=== PATIENT | female | born 1995 | race Caucasian/White ===

== ENCOUNTER 2019-12-09 20:08 | Observation (INO) | payer OTHER, MEDICAID, SELFPAY ==
[2019-12-09 21:00] VITALS: BMI 38.5
[2019-12-09 22:35] VITALS: TEMP 36.4
--- NOTE | 2019-12-09 23:21 | OBADM ---
This patient, Sabina Chandler, admitted to the OB room Labor/Delivery/Recovery 105 for observation. Patient/family oriented to hospital policies and general routines including ID bracelet, bed and alarms, visiting hours, pain management, procedures, bathroom and other care routines, personal items, smoking policy, room service/diet, and visiting hours. Patient/Family are encouraged to report perceived risks to care and to ask questions if they do not understand what they are told or what they should do.
--- NOTE | 2019-12-22 15:44 | PM.OBTRLD ---
OB - Triage/Final Diagnosis Final Diagnosis (1) False labor: Code(s): O47.9 - False labor, unspecified Status: Acute
== END 2019-12-09 22:52 | disposition home or self-care (01) ==
PROVIDERS: Admitting Provider Obstetrics & Gynecology; PCP Internal Medicine; Visit Provider Obstetrics & Gynecology
DX: O47.9 False labor, unspecified (principal); Z3A.00 Weeks of gestation of pregnancy not specified
CPT/HCPCS: G0378; G0379

== ENCOUNTER 2019-12-14 16:47 | Outpatient (RCR) | payer OTHER, MEDICAID, SELFPAY ==
[2019-12-14 17:30] VITALS: BP 110/67; PULSE 101
== END 2020-02-09 11:31 | disposition home or self-care (01) ==
LOC: ANHOBOP 16:47
PROVIDERS: PCP Internal Medicine; Visit Provider Obstetrics & Gynecology
DX: O36.8130 Decreased fetal movements, third trimester, not applicable or unspecified (principal); Z3A.37 37 weeks gestation of pregnancy
CPT/HCPCS: 59025

== ENCOUNTER 2019-12-16 15:49 | Inpatient (IN) | payer OTHER, MEDICAID, SELFPAY ==
[2019-12-16] VITALS (49 sets, daily range): BP systolic 70–136; BP diastolic 40–85; PULSE 59–104; TEMP 36.6–36.9; O2SAT 81–100; BMI 39.2
--- NOTE | 2019-12-16 16:19 | LDADM ---
This patient, Sabina Chandler, was admitted to Labor/Delivery/Recovery 105 on 12/16/19 at 15:49. Plans for labor, pain management and were discussed with patient. Patient/family oriented to hospital policies and general routines including ID bracelet, bed and alarms, visiting hours, pain management, procedures, bathroom and other care routines, personal items, smoking policy, room service/diet and guest tray routines, security routines, and visiting hours. Patient/Family are encouraged to report perceived risks to care and to ask questions if they do not understand what they are told or what they should do. See OBIX for further documentation.
[2019-12-16 16:41] LABS: Basophils Percent Auto 0.3 % (0.2-1.2); Eosinophils Absolute Auto 0.1 K/mm3 (0-0.3); Eosinophils Percent Auto 0.6 % (0-4.4); Hematocrit 34.9 % (37.0-47.0); Hemoglobin 11.5 g/dL (12.0-15.0); Immature Granulocyte Absolute 0.02 K/mm3 (0.00-0.031); Immature Granulocyte Percent A 0.2 % (0-0.5); Immature Platelet Fraction Pct 9.9 % (0.9-11.2); Lymphocytes Absolute Auto 1.75 K/mm3 (0.9-3.2); Lymphocytes Percent Auto 20.1 % (18.3-44.2); Mean Corpuscular Hemoglobin 30.7 pg (26-34); Mean Corpuscular Volume 93.1 fl (80-100); Mean Platelet Volume 13.2 fl (7.4-10.4); Monocytes Absolute Auto 0.5 K/mm3 (0.1-0.6); Monocytes Percent Auto 5.4 % (2.6-8.5); Neutrophils Absolute Auto 6.4 K/mm3 (1.3-6.7); Neutrophils Percent Auto 73.4 % (45.5-73.1); Platelet Count Result 154 k/mm3 (150-375); Red Blood Count 3.75 M/mm3 (4.2-5.4); Red Cell Distribution Width 13.2 % (11.5-14.5); White Blood Count 8.7 K/mm3 (4.5-10.0)
[2019-12-16] MEDS: LACTATED RINGERS 1,000 ML 125 ML IV CONT (18:03)
[2019-12-16] MEDS: ONDANSETRON INJ 4 MG/2 ML VIAL IV PUSH (18:03)
[2019-12-16] MEDS: FAMOTIDINE 20 MG/2 ML VIAL (20:10)
--- NOTE | 2019-12-16 20:51 | WPDANESEPP ---
Anes - Eval Pre Procedure Procedure: labor epidural Date/Time: 12/16/19 20:51 Surgeon: Florentino Preop Diagnosis: Labor pain Pre Op Diagnosis: Leaking fluid Patient Data Age: 24 Gender: F Height: 1.65 m Weight: 106.82 kg Last Vital Signs Temp 36.9 C 12/16/19 18:30 Pulse 80 12/16/19 20:50 BP 99/55 L 12/16/19 20:50 Pulse Ox 99 12/16/19 20:47 Allergies Allergy/AdvReac Type Severity Reaction Status Date / Time morphine Allergy Unknown Rash,ITCHIN Verified 11/30/19 13:11 G Contrast Media Allergy Unknown Other Uncoded 07/31/19 02:27 PURPLE GRAPES Allergy Unknown SWELLING, Uncoded 11/28/12 15:39 RASH Home Medications Medication Instructions Recorded Confirmed Type PNV cmb#95-ferrous fumarate-FA 1 tablet PO DAILY 11/30/19 12/16/19 History [] acyclovir 400 mg PO TID 11/30/19 12/16/19 History ondansetron HCl [Zofran] 4 mg PO Q8H PRN 11/30/19 12/16/19 History Laboratory Tests 12/16/19 12/16/19 12/16/19 16:33 16:33 17:16 WBC 8.7 K/mm3 K/mm3 (4.5-10.0) RBC 3.75 M/mm3 L M/mm3 (4.2-5.4) Hgb 11.5 g/dL L g/dL (12.0-15.0) Hct 34.9 % L % (37.0-47.0) MCV 93.1 fl fl (80-100) MCH 30.7 pg pg (26-34) MCHC 33.0 g/dl g/dl (32-36) RDW 13.2 % % (11.5-14.5) Plt Count 154 k/mm3 k/mm3 (150-375) MPV 13.2 fl H fl (7.4-10.4) Immature Gran % (Auto) 0.2 % % (0-0.5) Neut % (Auto) 73.4 % H % (45.5-73.1) Lymph % (Auto) 20.1 % % (18.3-44.2) [place] % (Auto) 5.4 % % (2.6-8.5) Eos % (Auto) 0.6 % % (0-4.4) Baso % (Auto) 0.3 % % (0.2-1.2) Lymph # (Auto) 1.75 K/mm3 K/mm3 (0.9-3.2) [place] # (Auto) 0.5 K/mm3 K/mm3 (0.1-0.6) Eos # (Auto) 0.1 K/mm3 K/mm3 (0-0.3) Baso # (Auto) 0.0 K/mm3 K/mm3 (0.0-0.1) Abs Immat Gran (auto) 0.02 K/mm3 K/mm3 (0.00-0.031) Absolute Neuts (auto) 6.4 K/mm3 K/mm3 (1.3-6.7) Absolute Nucleated RBC 0.0 K/mm3 K/mm3 (0.0-0.012) Nucleated RBC % 0.0 % % (0.0-0.2) % Immature Plt Fraction 9.9 % % (0.9-11.2) RPR Pending Blood Type O Positive Antibody Screen Negative Patient hx anesthesia problems: none Family hx anesthesia problems: none PMFSH Past Medical History Medical History (Updated 12/16/19 @ 20:52 by Hudson Da Silva DO) Anxiety Asthma Family History Family History (Updated 11/30/19 @ 13:29 by Isaiah Martínez RN) Grandparent Diabetes mellitus Cerebrovascular accident Other Diabetes mellitus Mother Thyroid disease Social History Social History Smoking packs per day: 1.5 Smoking cigarettes per day: 30.0 Years smoked: 8 Smoking pack-years: 12.00 Smoking status: Current every day smoker Tobacco type: cigarettes Second hand tobacco smoke exposure: Yes Alcohol intake: never Substance use: never Spiritual care concerns: No Exam Day of Procedure 12/16/19 20:51 Patient weight: obese
[2019-12-17] VITALS (9 sets, daily range): BP systolic 99–123; BP diastolic 57–91; PULSE 74–88; RESP 16–18; TEMP 36.6–36.9; O2SAT 97–100
[2019-12-17] MEDS: BENZOCAINE 20% AER SPR (*SP) 56 GM CAN 1 SPRAY TOPICAL (01:00)
[2019-12-17] MEDS: WITCH HAZEL 40 PADS 1 PAD TOPICAL (01:00)
[2019-12-17] MEDS: IBUPROFEN 600 MG TABLET PO ×3 (01:00→16:25)
--- NOTE | 2019-12-17 01:36 | OBPPTRN ---
Patient transferred to post room #291 via wheelchair. Support person present. Oriented to unit, room, information board, rooming in, admission packet and security measures. Patient verbalizes understanding. with patient.
--- NOTE | 2019-12-17 02:46 | OP_ITS ---
DATE OF PROCEDURE: 12/16/2019 PROCEDURE: Normal spontaneous vaginal delivery. PREDELIVERY DIAGNOSES: 1. 38-week term gestation. 2. Premature rupture of membranes. POSTDELIVERY DIAGNOSES: 1. 38-week term gestation. 2. Premature rupture of membranes. 3. Delivered by normal spontaneous vaginal delivery. ANESTHESIA: Epidural. ESTIMATED BLOOD LOSS: 200 mL. FINDINGS: Single live male , born on December 16, 2019, at 2300, Apgars of 9 and 9, weight 7 pounds 6 ounces. LACERATION: Periurethral laceration, hemostatic, and no repair was needed. BRIEF HISTORY: A 24-year-old, G2, P1, at 38 weeks term gestation, initially presented to Labor and Delivery with premature rupture of membranes. Labor was induced with IV Pitocin. The patient progressed without complication to complete dilation. DESCRIPTION OF THE PROCEDURE: Once the patient was noted to be complete and ready to push, the labor bed was broken down. Her legs were placed in stirrups for support. With maternal efforts and contractions, the presented in [place] position. Head was delivered and was checked for nuchal cord. No nuchal cord was noted with gentle downward traction. Anterior shoulder was delivered, followed by the posterior shoulder and the rest of the body. The was vigorous and crying. Delayed cord clamping approximately 1 minute was performed. Cord gases were collected. IV Pitocin was administered with gentle traction on the umbilical cord. The placenta was delivered spontaneously. Fundal massage was applied. Fundus was noted to be firm. Bleeding slowed down. Exam was performed to identify any lacerations. A periurethral laceration was noted; however, this was hemostatic, and thus no repair was needed. At this point, this concluded the procedure. The patient tolerated the procedure well, and is resting in the labor room. D I MT: Tiesha
[2019-12-17 05:44] LABS: Hematocrit 32.2 % (37.0-47.0); Hemoglobin 10.7 g/dL (12.0-15.0)
--- NOTE | 2019-12-17 06:17 | HP_ITS ---
DATE OF SERVICE: CHIEF COMPLAINT: Leaking of fluid. HISTORY OF PRESENT ILLNESS: 24-year-old, G2, P1-0-0-1 at 38 weeks and 0 days' gestation, initially presented to Labor and Delivery with complaints of leaking of fluid around 3 p.m. Rupture of membranes was confirmed on testing in Labor and Delivery triage. The patient reports some pelvic pressure and back pain. Otherwise, denies any headaches, blurry vision, spots in her vision, chest pain, shortness of breath, nausea, vomiting, diarrhea, constipation, vaginal irritation, and dysuria. PAST MEDICAL HISTORY: Cervical cancer, herpes, anxiety. SURGICAL HISTORY: Ankle surgery and eye surgery. SOCIAL HISTORY: Tobacco use, occasional. Denies alcohol or drugs. FAMILY HISTORY: Mother with hypothyroidism, hypertension, and depression. Maternal grandmother with diabetes mellitus. OBSTETRICAL HISTORY: G2, P1 with one previous normal spontaneous vaginal delivery. MEDICATIONS: Acyclovir, vitamins, and Zofran. ALLERGIES: TO MORPHINE AND IV CONTRAST. REVIEW OF SYSTEMS: 10-point review of systems is completed. Pertinent positives and negatives as per the HPI. PHYSICAL EXAMINATION: GENERAL: Not in acute distress. Alert and oriented x3. PSYCHIATRIC: Appropriate mood and affect. RESPIRATORY: Nonlabored. CARDIOVASCULAR: Regular rate and rhythm. ABDOMEN: Gravid, soft, nondistended. ASSESSMENT: 1. 38-week term gestation. 2. Premature rupture of membranes. PLAN: Admit to Labor and Delivery for induction of labor for premature rupture of membranes with Pitocin, routine intrapartum care, and pain management as requested by the patient. D I MT: Tiesha
[2019-12-17 06:54] LABS: Rapid Plasma Reagin Non-Reactive (NonReactive)
[2019-12-17] MEDS: DOCUSATE SODIUM 100 MG CAPSULE PO ×2 (09:20→16:25)
--- NOTE | 2019-12-17 10:24 | WPDANESPN ---
Anes - Prog Note Post-Op Date/Time: 12/17/19 10:24 Vital Signs: Last Vital Signs Temp 98.3 F 12/17/19 07:45 Pulse 74 12/17/19 07:45 Resp 16 12/17/19 07:45 BP 106/78 12/17/19 07:45 Pulse Ox 100 12/17/19 07:45 I/O: Intake & Output 12/16/19 12/17/19 12/17/19 23:59 07:59 15:59 Intake Total 500 Output Total 200 72 Balance 300 -72 Laboratory Tests 12/17/19 05:26 12/16/19 12/16/19 12/16/19 16:33 16:33 17:16 WBC 8.7 RBC 3.75 L Hgb 11.5 L Hct 34.9 L MCV 93.1 MCH 30.7 MCHC 33.0 RDW 13.2 Plt Count 154 MPV 13.2 H Immature Gran % (Auto) 0.2 Neut % (Auto) 73.4 H Lymph % (Auto) 20.1 [place] % (Auto) 5.4 Eos % (Auto) 0.6 Baso % (Auto) 0.3 Lymph # (Auto) 1.75 [place] # (Auto) 0.5 Eos # (Auto) 0.1 Baso # (Auto) 0.0 Abs Immat Gran (auto) 0.02 Absolute Neuts (auto) 6.4 Absolute Nucleated RBC 0.0 Nucleated RBC % 0.0 % Immature Plt Fraction 9.9 RPR Non-reactive Blood Type O Positive Antibody Screen Negative 12/17/19 05:26 WBC RBC Hgb 10.7 L Hct 32.2 L MCV MCH MCHC RDW Plt Count MPV Immature Gran % (Auto) Neut % (Auto) Lymph % (Auto) [place] % (Auto) Eos % (Auto) Baso % (Auto) Lymph # (Auto) [place] # (Auto) Eos # (Auto) Baso # (Auto) Abs Immat Gran (auto) Absolute Neuts (auto) Absolute Nucleated RBC Nucleated RBC % % Immature Plt Fraction RPR Blood Type Antibody Screen Patient Feedback: Patient satisfied with anesthetic care.
--- NOTE | 2019-12-17 10:24 | WPDANLDPN2 ---
Anes-Prog Note L&D Date/Time: 12/17/19 10:24 Neuro status: Neuro function grossly intact. Vital Signs: Last Vital Signs Temp 98.3 F 12/17/19 07:45 Pulse 74 12/17/19 07:45 Resp 16 12/17/19 07:45 BP 106/78 12/17/19 07:45 Pulse Ox 100 12/17/19 07:45 I/O: Intake & Output 12/16/19 12/17/19 12/17/19 23:59 07:59 15:59 Intake Total 500 Output Total 200 72 Balance 300 -72 Patient feedback: Patient satisfied with anesthetic care.
--- NOTE | 2019-12-17 11:45 | PC.NURSE ---
Consulted with patient, mother reports she has some difficulties waking for feeding. Reviewed feeding cues, frequencies, duration of feedings, feeding elimination flow sheet, and signs of adequate intake. Demonstrated stimulation techniques to wake infant for feeding. Assisted with infant to breast. Reviewed positioning/alignment in cross cradle, holding breast in U hold and guided asymmetrical latch on. was sleepy and not waking for feeding. Several attempts made. Small amounts of formula to nipple to entice . was able to latch correctly. Infant nursed eagerly, with steady draws and frequent swallowing noted. Reviewed signs of a correct latch, effective nursing and suck swallow ratio. Infant was able to maintain latch without discomfort to mother. Nipple care reviewed. Advised to stimulate to keep infant awake and nursing effectively. Infant responded to stimulation with increased suckling. Instructed mother to call out for RN assistance if she is unable to latch for feeding or she has discomfort with nursing. Instructed feeding should be initiated three hours from start of last feeding or if feeding cues are noted before. Mother voiced understanding of information shared.
--- NOTE | 2019-12-17 12:16 | PM.OBPNVD ---
OB - PN: Subj Subjective Date/time seen: 12/17/19 12:16 Interval history: 24yo s/p on 12/16/2019 @ 2300. Patient comments: no complaints and pain well controlled [place] baby status: doing well and nursing well [place] feeding status: exclusively breast feeding Narrative: Doing well. Having some cramping, especially when breast feeding, motrin helps. Denies lightheadedness, dizziness, fevers, chills, nausea. Lochia improving. OB - PN: Obj Data Labs CBC & Chem 7: 12/17/19 05:26 Labs: Laboratory Results - last 24 hr 12/16/19 12/16/19 12/16/19 16:33 16:33 17:16 WBC 8.7 RBC 3.75 L Hgb 11.5 L Hct 34.9 L MCV 93.1 MCH 30.7 MCHC 33.0 RDW 13.2 Plt Count 154 MPV 13.2 H Immature Gran % (Auto) 0.2 Neut % (Auto) 73.4 H Lymph % (Auto) 20.1 [place] % (Auto) 5.4 Eos % (Auto) 0.6 Baso % (Auto) 0.3 Lymph # (Auto) 1.75 [place] # (Auto) 0.5 Eos # (Auto) 0.1 Baso # (Auto) 0.0 Abs Immat Gran (auto) 0.02 Absolute Neuts (auto) 6.4 Absolute Nucleated RBC 0.0 Nucleated RBC % 0.0 % Immature Plt Fraction 9.9 RPR Non-reactive Blood Type O Positive Antibody Screen Negative 12/17/19 05:26 WBC RBC Hgb 10.7 L Hct 32.2 L MCV MCH MCHC RDW Plt Count MPV Immature Gran % (Auto) Neut % (Auto) Lymph % (Auto) [place] % (Auto) Eos % (Auto) Baso % (Auto) Lymph # (Auto) [place] # (Auto) Eos # (Auto) Baso # (Auto) Abs Immat Gran (auto) Absolute Neuts (auto) Absolute Nucleated RBC Nucleated RBC % % Immature Plt Fraction RPR Blood Type Antibody Screen OB - PN A/P Assessment and Plan (1) (normal spontaneous vaginal delivery): Code(s): O80 - Encounter for full-term uncomplicated delivery Status: Acute Assessment and Plan: Routine care Pain management Ambulate DC home tomorrow, 1/31. Plan day: 1 Plan: routine care Time Spent With Patient Time: Total time spent is greater than 50% in coordination of care (as documented) at patient's floor/unit and/or counseling patient: Exam Const: General: comfortable and no acute distress Orientation/consciousness: patient oriented x3 Resp: Effort & Inspection: normal respiratory effort Auscultation: clear to auscultation bilaterally Cardio: Rate: regular rate Psych: Appearance: grossly normal and well kempt Mental Status: mental status grossly normal Affect: normal affect Attitude: cooperative
--- NOTE | 2019-12-17 13:14 | PM.DS ---
DS: Diagnosis Admitting Diagnosis Admitting Diagnosis: Encounter for full-term uncomplicated delivery Discharge Diagnosis (1) (normal spontaneous vaginal delivery): Code(s): O80 - Encounter for full-term uncomplicated delivery Status: Acute DS: Summary Hospital Course Reason for hospitalization: 24yo at 38weeks initially admitted for PROM. Hospital Course: Labor induced with pitocin. on 12/16. Patient progressed as expected. Discharge on 12/18/2019. Time Spent with Patient Time attestation: Total time spent providing and/or coordinating discharge services: Exam Const: General: comfortable and no acute distress Limitations: no limitations Resp: Effort & Inspection: normal respiratory effort Auscultation: clear to auscultation bilaterally Cardio: Rate: regular rate Rhythm: regular rhythm GI: GI Palp: Yes Soft to palpation and No Tenderness to palpation present (GI) Psych: Appearance: grossly normal Mental Status: mental status grossly normal DS: Data Data Completed and Pending Labs on day of discharge: Labs from last 24 hours 12/17/19 12/16/19 12/16/19 05:26 17:16 16:33 WBC RBC Hgb 10.7 L Hct 32.2 L MCV MCH MCHC RDW Plt Count MPV Immature Gran % (Auto) Neut % (Auto) Lymph % (Auto) [place] % (Auto) Eos % (Auto) Baso % (Auto) Lymph # (Auto) [place] # (Auto) Eos # (Auto) Baso # (Auto) Abs Immat Gran (auto) Absolute Neuts (auto) Absolute Nucleated RBC Nucleated RBC % % Immature Plt Fraction RPR Non-reactive Blood Type O Positive Antibody Screen Negative 12/16/19 16:33 WBC 8.7 RBC 3.75 L Hgb 11.5 L Hct 34.9 L MCV 93.1 MCH 30.7 MCHC 33.0 RDW 13.2 Plt Count 154 MPV 13.2 H Immature Gran % (Auto) 0.2 Neut % (Auto) 73.4 H Lymph % (Auto) 20.1 [place] % (Auto) 5.4 Eos % (Auto) 0.6 Baso % (Auto) 0.3 Lymph # (Auto) 1.75 [place] # (Auto) 0.5 Eos # (Auto) 0.1 Baso # (Auto) 0.0 Abs Immat Gran (auto) 0.02 Absolute Neuts (auto) 6.4 Absolute Nucleated RBC 0.0 Nucleated RBC % 0.0 % Immature Plt Fraction 9.9 RPR Blood Type Antibody Screen Discharge Plan Discharge Attending physician on discharge: Shin Good Discharging Clinician: Shin Good Patient Disposition: Home, Self-Care Activity: may shower Diet: as tolerated and regular Patient Instructions: Antibiotic Form Stand Alone Forms: General Discharge Information Follow-up/Referrals: Shin Good DO [Physician] - (4 weeks) Discharge Medications: New docusate sodium 100 mg Capsule 100 mg PO BID PRN (Reason: Constipation) Qty: 60 RF: 0 ibuprofen 600 mg Tablet 600 mg PO Q6H PRN (Reason: Cramping) Qty: 90 RF: 0 Continued PNV cmb#95-ferrous fumarate-FA [] 28 mg iron- 800 mcg Tablet 1 tablet PO DAILY RF: 0 Discontinued ondansetron HCl [Zofran] 4 mg Tablet 4 mg PO Q8H PRN (Reason: Nausea) RF: 0 acyclovir 400 mg Tablet 400 mg PO TID RF: 0 Date of admission: 12/16/19 15:49 Primary Care Provider: Felix,Kostas Lozano Admitting Provider: Shin Good Attending physician on admission: Shin Good
[2019-12-17] MEDS: MULTIVIT/MIN/PREN/FOL AC/IRON TABLET 1 TAB PO (16:29)
[2019-12-18] MEDS: IBUPROFEN 600 MG TABLET PO ×2 (00:17→08:59)
[2019-12-18 08:20] VITALS: BP 98/46; PULSE 56; RESP 16; TEMP 37.4; O2SAT 98
[2019-12-18] MEDS: MULTIVIT/MIN/PREN/FOL AC/IRON TABLET 1 TAB PO (09:00)
[2019-12-18] MEDS: TETANUS,DIPHTHERIA,AC PERTUSSIS ADULT 0.5 ML (ADACEL) IM (09:00)
[2019-12-18] MEDS: DOCUSATE SODIUM 100 MG CAPSULE PO (09:00)
--- NOTE | 2019-12-18 11:35 | PC.NURSE ---
Patient instructed on viewing the discharge video Mother & Baby Care, The First Two Weeks online. Patient was given the opportunity and encouraged to ask questions. Patient verbalized understanding of information shared and has been given the mother/baby guide for home reference.
--- NOTE | 2019-12-18 11:45 | PC.NURSE ---
Mother is able to independently latch infant with appropriate positioning/alignment. She denies any nipple discomfort, is feeding as required and waking to feed if needed. has had 8 effective feedings in the past 24 hours, and is currently meeting outcomes for weight, output, jaundice and feeding frequencies. Mother states she feels confident to continue effective at home. Mother will continue to supplement after feedings as she feels infant desires Reviewed transition to breast milk, signs of adequate intake, and engorgement/relief. Instructed to call ICP if intake/output less than required. Reviewed regular medications mother is taking. Information provided per Dilma. Reviewed community resources on the [facility] website and in the Mom/Baby guide. Information on outpatient services provided. Mother has no further questions at this time.
[2019-12-19 10:59] VITALS: BP 115/85; PULSE 89; RESP 20; TEMP 37.1
== END 2019-12-18 13:00 | disposition home or self-care (01) | DRG 806 ==
LOC: ANHLDR 16:14 → ANHOB2 12-17 01:46
PROVIDERS: Admitting Provider Obstetrics & Gynecology; PCP Internal Medicine; Visit Provider Obstetrics & Gynecology
DX: O42.02 Full-term premature rupture of membranes, onset of labor within 24 hours of rupture (principal); O98.52 Other viral diseases complicating childbirth; Z37.0 Single live birth; Z3A.38 38 weeks gestation of pregnancy; B00.9 Herpesviral infection, unspecified; O36.8330 Maternal care for abnormalities of the fetal heart rate or rhythm, third trimester, not applicable or unspecified; O99.344 Other mental disorders complicating childbirth; F41.8 Other specified anxiety disorders; O99.52 Diseases of the respiratory system complicating childbirth; J45.909 Unspecified asthma, uncomplicated; O99.214 Obesity complicating childbirth; E66.9 Obesity, unspecified; O71.82 Other specified trauma to perineum and vulva
CPT/HCPCS: 36415; 85014; 85018; 85025; 85055; 86592; 86850; 86900; 86901; 90715; A9270; J2405; J2590; J2795; J3010; J7120

== ENCOUNTER 2019-12-21 21:17 | Emergency (ER) | payer OTHER, MEDICAID, SELFPAY ==
[2019-12-21 21:19] VITALS: BP 130/87; PULSE 66; RESP 18; TEMP 36.6; O2SAT 100
[2019-12-21 21:39] LABS: Basophils Percent Auto 0.3 % (0.2-1.2); Eosinophils Absolute Auto 0.2 K/mm3 (0-0.3); Eosinophils Percent Auto 2.8 % (0-4.4); Hematocrit 35.8 % (37.0-47.0); Hemoglobin 11.9 g/dL (12.0-15.0); Immature Granulocyte Absolute 0.02 K/mm3 (0.00-0.031); Immature Granulocyte Percent A 0.3 % (0-0.5); Lymphocytes Absolute Auto 2.29 K/mm3 (0.9-3.2); Lymphocytes Percent Auto 35.7 % (18.3-44.2); Mean Corpuscular HGB Conc 33.2 g/dl (32-36); Mean Corpuscular Hemoglobin 31.2 pg (26-34); Mean Platelet Volume 11.5 fl (7.4-10.4); Monocytes Absolute Auto 0.5 K/mm3 (0.1-0.6); Monocytes Percent Auto 7.6 % (2.6-8.5); Neutrophils Absolute Auto 3.4 K/mm3 (1.3-6.7); Neutrophils Percent Auto 53.3 % (45.5-73.1); Platelet Count Result 216 k/mm3 (150-375); Red Blood Count 3.81 M/mm3 (4.2-5.4); Red Cell Distribution Width 12.6 % (11.5-14.5); White Blood Count 6.4 K/mm3 (4.5-10.0)
[2019-12-21 21:50] LABS: Alanine Aminotransferase 26 U/L (4-35); Albumin Level 3.6 g/dL (3.5-5.1); Alkaline Phosphatase 113 U/L (38-126); Aspartate Amino Transferase 24 U/L (14-36); Bilirubin,Total 0.2 mg/dL (0.2-1.3); Blood Urea Nitrogen 11 mg/dL (7-17); Calcium 9.3 mg/dL (8.4-10.2); Carbon Dioxide 20 mmol/L (22-30); Chloride 108 mmol/L (98-107); Estimated CRCL calculation 144 ml/min; Estimated Glomerular Filt Rate > 60; Glucose 87 mg/dL (65-105); Lipase 25 U/L (23-300); Potassium 3.5 mmol/L (3.4-5.0); Sodium 137 mmol/L (137-145)
[2019-12-21 22:24] LABS: Add Urine Microscopic? YES; Appearance Urine Clear (Clear); Bacteria Urine Trace /hpf; Bilirubin Urine Negative (Negative); Blood Urine 3+ (Negative); Color Urine Yellow (Yellow); Glucose Urine UA Negative (Negative); Ketones Urine Negative (Negative); Leukocyte Esterase Ur 3+ LEU/UL (Negative); Mucus Urine Rare /lpf; Nitrate Urine Negative (Negative); Protein Urine Negative (Negative); RBC Urine 21-50 /hpf (0-2); Specific Grav Ur 1.009 (1.001-1.035); Squamous Epithelial Cell Urine Many /hpf (Few); Urobilinogen Urine Negative mg/dL (<2.0); WBC Urine 31-50 /hpf
[2019-12-21 23:28] VITALS: BP 146/93; PULSE 60; RESP 11; TEMP 36.7; O2SAT 100
--- NOTE | 2019-12-21 23:36 | ED.HA ---
HPI - Headache General Chief Complaint: Headache Stated Complaint: headaches/ HTN gave Saturday Time Seen by Provider: 12/21/19 23:29 Source: patient and RN notes reviewed Mode of arrival: ambulatory Limitations: no limitations History of Present Illness HPI Narrative: Pt is a 24 y/o female who presents to the ED with c/o waxing and waning headache starting 3 days ago. She notes that she had a vaginal delivery 5 days ago, stating that she received an epidural injection during the delivery. Pt notes that she has had a headache ever since returning home from the hospital 3 days ago. She states that she has been taking Tylenol for her pain, but denies having any relief. Pt reports lightheadedness and abnormal breathing accompanying her pain, but denies any calf pain or LE edema. She notes that she hasn't had much of an appetite throughout the day today. Pt states that her BP has also recently been elevated. MD elicited complaint: headache Onset (ago): day(s) (3) Context: recent spinal/epidural procedure Associated symptoms: lightheadedness and other ( abnormal breathing; decreased appetite) Treatments prior to arrival: acetaminophen Related Data Home Medications Medication Instructions Recorded Confirmed PNV cmb#95-ferrous fumarate-FA 1 tablet PO DAILY 11/30/19 12/16/19 [] Allergies Allergy/AdvReac Type Severity Reaction Status Date / Time morphine Allergy Unknown Rash,ITCHIN Verified 11/30/19 13:11 G Contrast Media Allergy Unknown Other Uncoded 07/31/19 02:27 PURPLE GRAPES Allergy Unknown SWELLING, Uncoded 11/28/12 15:39 RASH Review of Systems Review of Systems: All systems reviewed & are unremarkable except as noted in HPI and below Constitutional: Constitutional: Reports poor appetite Cardiovascular: Cardiovascular: Denies leg edema Respiratory: Respiratory: Reports other ( abnormal breathing) Musculoskeletal: Musculoskeletal: Denies other (calf pain) Neurologic: Reports headache(s) and Reports other (lightheadedness) [facility] Past Medical History Medical History Anxiety Asthma Bipolar disorder Depression Surgical History Surgical History History of ankle surgery lt ankle Hx of eye surgery Family History Family History (Updated 11/30/19 @ 13:29 by Isaiah Martínez RN) Grandparent Diabetes mellitus Cerebrovascular accident Other Diabetes mellitus Mother Thyroid disease Social History Social History Smoking packs per day: 1.5 Smoking cigarettes per day: 30.0 Years smoked: 8 Smoking pack-years: 12.00 Smoking status: Current every day smoker Tobacco type: cigarettes Second hand tobacco smoke exposure: Yes Alcohol intake: never Substance use: never Spiritual care concerns: No Exam Const: General: healthy appearing and no acute distress Nutritional Appearance: well nourished HENMT: Head: normocephalic and atraumatic Resp: Effort & Inspection: normal respiratory effort Auscultation: clear to auscultation bilaterally Cardio: Rate: regular rate Rhythm: regular rhythm Heart sounds: no murmurs Back/Spine/Pelvis: Back: other (Full ROM) Skin: General skin exam: normal color, dry skin and other (warm) Neuro: General: patient oriented x3 (alert) Speech: normal speech Extrem: General: full ROM, no pedal edema and no calf tenderness Psych: Mental Status: mental status grossly normal Affect: normal affect Course Vital Signs Vital signs: Vital Signs Temperature 36.6 C 12/21/19 21:19 Pulse Rate 66 12/21/19 21:19 Respiratory Rate 18 12/21/19 21:19 Blood Pressure 130/87 12/21/19 21:19 Pulse Oximetry 100 12/21/19 21:19 Temperature 36.7 C 12/21/19 23:28 Pulse Rate 57 L 12/22/19 02:17 Respiratory Rate 16 12/22/19 02:17 Blood Pressure 138/82 12/22/19 02:17 Puls
[2019-12-21] MEDS: SODIUM CHLORIDE 0.9% IV 1,000 ML 999 ML IV CONT (23:50)
[2019-12-22] MEDS: METOCLOPRAMIDE HCL INJ 10 MG/2 ML VIAL IV PUSH
[2019-12-22] MEDS: KETOROLAC 30 MG/ML VIAL (*BKC) IV PUSH (00:01)
[2019-12-22 00:16] VITALS: BP 152/97; PULSE 58; RESP 25; O2SAT 94
[2019-12-22 01:00] VITALS: BP 127/83; PULSE 53; RESP 33; O2SAT 100
[2019-12-22 02:17] VITALS: BP 138/82; PULSE 57; RESP 16; O2SAT 96
== END 2019-12-22 02:17 | disposition home or self-care (01) ==
PROVIDERS: Emergency Provider Emergency Medicine; PCP Internal Medicine
DX: O99.89 Other specified diseases and conditions complicating pregnancy, childbirth and the puerperium (principal); R51 Headache; O99.53 Diseases of the respiratory system complicating the puerperium; J45.909 Unspecified asthma, uncomplicated; O99.335 Smoking (tobacco) complicating the puerperium; F17.210 Nicotine dependence, cigarettes, uncomplicated
CPT/HCPCS: 36415; 80053; 81001; 83690; 85025; 87086; 96361; 96365; 96374; 96375; 99284; J0131; J1100; J1200; J1885; J2765; J7030

== ENCOUNTER 2021-12-29 20:13 | Emergency (ER) | payer OTHER, MEDICAID, SELFPAY ==
[2021-12-29 20:21] VITALS: BP 122/79; PULSE 127; RESP 18; TEMP 36.3; O2SAT 99
[2021-12-29] MEDS: SODIUM CHLORIDE 0.9% IV 1,000 ML 999 ML IV CONT (20:54)
[2021-12-29 21:02] LABS: Basophils Percent Auto 0.3 % (0.2-1.2); Eosinophils Absolute Auto 0.1 K/mm3 (0-0.3); Eosinophils Percent Auto 0.6 % (0-4.4); Hematocrit 44.5 % (37.0-47.0); Hemoglobin 15.2 g/dL (12.0-15.0); Immature Granulocyte Absolute 0.02 K/mm3 (0.00-0.031); Immature Granulocyte Percent A 0.2 % (0-0.5); Lymphocytes Absolute Auto 0.83 K/mm3 (0.9-3.2); Lymphocytes Percent Auto 8.5 % (18.3-44.2); Mean Corpuscular HGB Conc 34.2 g/dl (32-36); Mean Corpuscular Volume 90.8 fl (80-100); Monocytes Absolute Auto 0.5 K/mm3 (0.1-0.6); Monocytes Percent Auto 4.9 % (2.6-8.5); Neutrophils Absolute Auto 8.4 K/mm3 (1.3-6.7); Neutrophils Percent Auto 85.5 % (45.5-73.1); Platelet Count Result 188 k/mm3 (150-375); Red Cell Distribution Width 12.6 % (11.5-14.5); White Blood Count 9.8 K/mm3 (4.5-10.0)
--- NOTE | 2021-12-29 21:02 | ED.NAVMDI ---
HPI - Nausea/Vomiting/Diarrhea General Chief complaint: Nausea/Vomiting/Diarrhea Stated complaint: N/V/D, bodyaches Time Seen by Provider: 12/29/21 20:36 Source: patient Mode of arrival: ambulatory Limitations: no limitations History of Present Illness HPI Narrative: Patient is a 26-year-old female complaining of nausea, vomiting, diarrhea x2 days. Patient describes her vomitus is nonbilious nonbloody. Patient describes her diarrhea as loose watery. Patient also states that she is had body aches for the past 2 weeks. Patient states that both her kids had similar symptoms week. Patient denies any chest pain, shortness of breath, abdominal pain, urinary symptoms, fever or chills. Related Data Home Medications Medication Instructions Recorded Confirmed PNV cmb#[id number] fumarate-FA 1 tablet PO DAILY 11/30/19 12/16/19 [] Allergies Allergy/AdvReac Type Severity Reaction Status Date / Time morphine Allergy Unknown Rash,ITCHIN Verified 12/29/21 20:25 G Contrast Media Allergy Unknown Other Uncoded 12/29/21 20:25 PURPLE GRAPES Allergy Unknown SWELLING, Uncoded 12/29/21 20:25 RASH Review of Systems Review of Systems: All systems reviewed & are unremarkable except as noted in HPI and below Constitutional: Constitutional: Denies body ache(s), Denies chills, Denies excessive sweating, Denies fatigue, Denies fever(s), Denies headache(s), Denies lethargy, Denies malaise, Denies weakness and Denies weight loss Eyes: Eyes: Denies blurry vision, Denies change in vision and Denies loss of vision ENT: Denies dizziness, Denies ear discharge, Denies headache(s), Denies lip swelling, Denies epistaxis, Denies nasal congestion, Denies neck pain, Denies throat swelling and Denies tongue swelling Cardiovascular: Cardiovascular: Denies chest pain, Denies chest pain at rest, Denies chest pain with activity, Denies diaphoresis, Denies rapid heart rate, Denies edema, Denies irregular heart rhythm, Denies lightheadedness, Denies palpitations, Denies dyspnea and Denies dyspnea on exertion Respiratory: Respiratory: Denies chest congestion, Denies cough, Denies hemoptysis, Denies dyspnea and Denies dyspnea on exertion Gastrointestinal: Gastrointestinal: Denies abdominal pain, Denies melena, Denies hematochezia, Denies diarrhea, Denies nausea, Denies vomiting and Denies hematemesis Musculoskeletal: Musculoskeletal: Denies abnormal gait, Denies deformity, Denies joint swelling, Denies limited range of motion, Denies neck pain and Denies numbness Neurologic: Denies Abnormal speech present, Denies abnormal gait, Denies confusion, Denies dizziness, Denies headache(s), Denies focal weakness, Denies loss of vision, Denies numbness, Denies Other visual disturbances, Denies Sensory deficit (Neuro) and Denies weakness Psychiatric: Psychiatric: Denies confusion, Denies depression, Denies auditory hallucinations, Denies homicidal ideation and Denies suicidal ideation Endocrine: Endocrine: Denies cold intolerance, Denies excessive sweating, Denies fatigue, Denies heat intolerance and Denies palpitations Hematologic/Lymphatic: Hematologic/Lymphatic: Denies easy bleeding and Denies easy bruising Allergic/Immunologic: Allergic/Immunologic: Denies lip swelling, Denies throat swelling and Denies tongue swelling PMFSH Past Medical History Medical History (Updated 12/29/21 @ 22:18 by Rajesh Schroeder MD) Anxiety Asthma Bipolar disorder Depression Surgical History Surgical History History of ankle surgery lt ankle Hx of eye surgery Family History Family History Grandparent Diabetes mellitus Cerebrovascular accident Other Diabetes mellitus Mother Thyroid disease Social History Social History Smoking packs per day: 1.5 Smoking cigarettes per day: 30.0 Years smoke
[2021-12-29 21:12] LABS: Alanine Aminotransferase 27 U/L (4-35); Albumin Level 4.5 g/dL (3.5-5.1); Alkaline Phosphatase 73 U/L (38-126); Anion Gap 11 mmol/L (8-16); Aspartate Amino Transferase 32 U/L (14-36); Bilirubin,Total 0.6 mg/dL (0.2-1.3); Blood Urea Nitrogen 13 mg/dL (7-17); Carbon Dioxide 16 mmol/L (22-30); Chloride 108 mmol/L (98-107); Estimated CRCL calculation 123 ml/min; Estimated Glomerular Filt Rate > 60; Glucose 111 mg/dL (65-110); Lipase 36 U/L (23-300); Potassium 3.9 mmol/L (3.4-5.0); Sodium 135 mmol/L (137-145)
[2021-12-29] MEDS: ONDANSETRON INJ 4 MG/2 ML VIAL IV PUSH (22:20)
== END 2021-12-29 22:35 | disposition home or self-care (01) ==
PROVIDERS: Emergency Provider Emergency Medicine; PCP Internal Medicine
DX: B34.9 Viral infection, unspecified (principal); J45.909 Unspecified asthma, uncomplicated; F17.210 Nicotine dependence, cigarettes, uncomplicated
CPT/HCPCS: 36415; 80053; 83690; 85025; 96361; 96374; 99284; J2405; J7030

== ENCOUNTER 2023-01-17 15:08 | Emergency (ER) | payer OTHER, SELFPAY ==
--- NOTE | ~2023-01-17 | XR_ITS ---
EXAMINATION: XR finger 4th RT min 2V INDICATION: Right fourth finger swelling TECHNIQUE: Three views of the right fourth finger are obtained. COMPARISON: None available FINDINGS: There is a lytic, expansile lesion involving the base and proximal shaft of the fourth dist al phalanx. No fracture is identified. The joint spaces are maintained. The cortex is intact. There i s mild soft tissue swelling of the fourth finger. IMPRESSION: 1. Lytic, expansile lesion involving the fourth distal phalanx. Differential includes enchondroma, an eurysmal bone cyst, giant cell tumor, unicameral bone cyst, an epidermal inclusion cyst. Orthopedic f ollow-up is recommended. Reviewed, dictated and finalized at location F. PILOT IMPRESSION: 1. Lytic, expansile lesion involving the fourth distal phalanx. Differential in cludes enchondroma, aneurysmal bone cyst, giant cell tumor, unicameral bone cys t, an epidermal inclusion cyst. Orthopedic follow-up is recommended.
[2023-01-17 15:12] VITALS: BP 121/68; PULSE 84; RESP 20; TEMP 37.1; O2SAT 98
--- NOTE | 2023-01-17 15:33 | ED.UPPEXIN ---
HPI - Extremity Injury (Upper) General Chief Complaint: Extremity Injury, Upper Stated Complaint: Finger Injury Source: patient and RN notes reviewed History of Present Illness HPI narrative: 27-year-old female presents to urgent care with complaints of right ring finger pain. Patient states 2 days this pain started at the tip of her right ring finger the patient states she does not know if she had injury or not. Patient states he might have injured his finger while opening a bottle of shampoo. Patient denies any other injuries. Patient has no other complaints. Related Data Home Medications Medication Instructions Recorded Confirmed No Home Medications 01/17/23 01/17/23 Allergies Allergy/AdvReac Type Severity Reaction Status Date / Time fluconazole [From Diflucan] Allergy Intermediate sores in Verified 11/21/22 09:18 mouth morphine Allergy Unknown Rash,ITCHIN Verified 11/21/22 09:18 G Contrast Media Allergy Unknown Other Uncoded 11/21/22 09:18 PURPLE GRAPES Allergy Unknown SWELLING, Uncoded 11/21/22 09:18 RASH Review of Systems Review of Systems: CONSTITUTIONAL: Denies fever, chills, or sweats. EYES: Denies visual changes, redness, or discharge. ENT: Denies otalgia and sore throat CARDIOVASCULAR: Denies chest pain, palpitations, or edema. RESPIRATORY: Denies cough or dyspnea. GASTROINTESTINAL: Denies abdominal pain, nausea, vomiting, or diarrhea. GENITOURINARY: Denies dysuria or hematuria. SKIN: Denies rash or itching. MUSCULOSKELETAL:Right ring finger pain NEUROLOGIC: Denies headache, numbness, or weakness. [facility] Past Medical History Medical History (Updated 01/17/23 @ 16:10 by Latesha Modi APRN) Anxiety Asthma Bipolar disorder Colonoscopy planned Depression Encounter for screening examination for sexually transmitted disease HSV-2 infection Lupus (~11/18/21) Vaginal irritation Surgical History Surgical History History of ankle surgery lt ankle Hx of eye surgery Family History Family History Grandparent Diabetes mellitus Cerebrovascular accident Other Diabetes mellitus Mother Thyroid disease Social History Social History (Updated 11/21/22 @ 09:21 by Vandana Lu MA) Smoking packs per day: 1.5 Smoking cigarettes per day: 30.0 Years smoked: 8 Smoking pack-years: 12.00 Smoking status: Current every day smoker Tobacco type: cigarettes Second hand tobacco smoke exposure: Yes Alcohol intake: current Alcohol use details: rarely Substance use: never Living arrangements: with family Occupation/Education: unemployed Gender identity (if verbalized by the patient): Female Sexual Orientation (if Verbalized by the Patient): Straight or Heterosexual Spiritual care concerns: No Comments At the time of my signature, I reviewed and agree with the nursing past medical, surgical, social, and family history. There is no relevant family history pertinent to the patient complaint. Exam Narrative: GENERAL: This is a well-nourished, well-developed patient, in no apparent distress. HEAD: normocephalic, atraumatic. EYES: PERRL. Sclera clear/white. Vision is grossly intact. EARS: External ears normal, auditory canals clear and without drainage, TMs normal without perforation. Hearing grossly intact. NOSE: External nose normal with no obvious nasal discharge, nares without redness, no rhinorrhea. THROAT: Mucous membranes moist, posterior pharynx clear. NECK: Neck supple, non-tender without lymphadenopathy, masses or thyromegaly. CARDIOVASCULAR: Regular rate and rhythm without murmurs, gallops, or rubs. RESPIRATORY: Clear to auscultation. Breath sounds equal bilaterally. No wheezes, rales, or rhonchi. GASTROINTESTINAL: Abdomen soft, non-tender, nondistended. Bowel sounds are active. No hepato-splenomegaly, or palpable masses. No guarding. SKIN: warm,
== END 2023-01-17 16:17 | disposition home or self-care (01) ==
PROVIDERS: Emergency Provider Nurse Practitioner Family; PCP Internal Medicine
DX: S63.634A Sprain of interphalangeal joint of right ring finger, initial encounter (principal); J45.909 Unspecified asthma, uncomplicated; F17.210 Nicotine dependence, cigarettes, uncomplicated; X58.XXXA Exposure to other specified factors, initial encounter
CPT/HCPCS: 29130; 73140; 99213; G0463

== ENCOUNTER 2023-05-26 11:47 | Emergency (ER) | payer OTHER, SELFPAY ==
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
[2023-05-26 11:56] VITALS: BP 133/73; PULSE 94; RESP 16; TEMP 36.6; O2SAT 100
--- NOTE | 2023-05-26 12:32 | ED.GENADULT ---
HPI - General Adult General Chief complaint: Neck Pain/Injury Stated complaint: Neck Pain Source: patient Mode of arrival: ambulatory Limitations: no limitations History of Present Illness HPI narrative: Patient presents for evaluation of neck pain. Symptom onset this morning. She was lying in bed stretching the time of her pain. She now reports pain in the posterior aspect of her neck that she states is sharp, 8/10 in severity with radiation down the left side of her neck into her shoulder. No radicular component down either upper extremity. No paresthesias. Movement make her pain worse. She has not tried taking anything for pain. No additional complaints or concerns. Related Data Allergies Allergy/AdvReac Type Severity Reaction Status Date / Time fluconazole [From Diflucan] Allergy Intermediate sores in Verified 05/26/23 12:03 mouth morphine Allergy Unknown Rash,ITCHIN Verified 05/26/23 12:03 G Contrast Media Allergy Unknown Other Uncoded 05/26/23 12:03 PURPLE GRAPES Allergy Unknown SWELLING, Uncoded 05/26/23 12:03 RASH Review of Systems Review of Systems: CONSTITUTIONAL: Denies fever, chills, or sweats. EYES: Denies visual changes, redness, or discharge. ENT: Denies rhinorrhea, congestion, sore throat, or otalgia. CARDIOVASCULAR: Denies chest pain, palpitations, or edema. RESPIRATORY: Denies cough or dyspnea. GASTROINTESTINAL: Denies abdominal pain, nausea, vomiting, or diarrhea. GENITOURINARY: Denies dysuria or hematuria. SKIN: Denies rash or itching. MUSCULOSKELETAL: Reports posterior neck pain with radiation into left shoulder NEUROLOGIC: Denies headache, numbness, dizziness, or weakness. PSYCHIATRIC: Denies anxiety or depression. [facility] Past Medical History Medical History Anxiety Asthma Bipolar disorder Colonoscopy planned Depression Encounter for screening examination for sexually transmitted disease HSV-2 infection Lupus (~11/18/21) Vaginal irritation Surgical History Surgical History History of ankle surgery lt ankle Hx of eye surgery Family History Family History Grandparent Diabetes mellitus Cerebrovascular accident Other Diabetes mellitus Mother Thyroid disease Social History Social History Smoking packs per day: 1.5 Smoking cigarettes per day: 30.0 Years smoked: 8 Smoking pack-years: 12.00 Smoking status: Current every day smoker Tobacco type: cigarettes Second hand tobacco smoke exposure: Yes Alcohol intake: current Alcohol use details: rarely Substance use: never Living arrangements: with family Occupation/Education: unemployed Gender identity (if verbalized by the patient): Female Sexual Orientation (if Verbalized by the Patient): Straight or Heterosexual Spiritual care concerns: No Exam Narrative: GENERAL: Well-appearing, well-nourished, and in no acute distress. HEAD: Normocephalic, atraumatic. EYES: PERRLA and EOMI. ENT: Nares clear, no rhinorrhea or epistaxis. Mucous membranes moist. Oropharynx without tonsillar hypertrophy exudate or other lesions. Bilateral TMs pearly adkins nonbulging NECK: Supple. No adenopathy or masses. No carotid bruits or JVD. Tenderness diffusely in cervical spinal region and over musculature of left lateral neck CHEST: Clear to auscultation. No respiratory distress. No wheezes rales or rhonchi HEART: Regular rate and rhythm. No murmur heard. Normal peripheral pulses. ABDOMEN: Soft, nontender, nondistended, normal active bowel sounds. EXTREMITIES: Normal range of motion. No edema. SKIN: Warm, dry, no rash. NEURO: No focal deficits. Alert and oriented x3. PSYCH: Normal mood and affect. Course Course Emergency Course: This is a 27-year-old female
== END 2023-05-26 12:35 | disposition home or self-care (01) ==
PROVIDERS: Emergency Provider Nurse Practitioner; PCP Internal Medicine
DX: M47.812 Spondylosis without myelopathy or radiculopathy, cervical region (principal); M62.838 Other muscle spasm; F17.210 Nicotine dependence, cigarettes, uncomplicated; J45.909 Unspecified asthma, uncomplicated
CPT/HCPCS: 72040; 99213; G0463

== ENCOUNTER 2023-08-12 16:14 | Emergency (ER) | payer OTHER, SELFPAY ==
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
[2023-08-12 16:20] VITALS: BP 128/63; PULSE 88; RESP 20; TEMP 37.2; O2SAT 100
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
== END 2023-08-12 17:18 | disposition home or self-care (01) ==
PROVIDERS: Emergency Provider Nurse Practitioner; PCP Internal Medicine
DX: S60.212A Contusion of left wrist, initial encounter (principal); F17.210 Nicotine dependence, cigarettes, uncomplicated; W22.09XA Striking against other stationary object, initial encounter
CPT/HCPCS: 73130; 99213; G0463

== ENCOUNTER 2023-08-13 15:50 | Emergency (ER) | payer OTHER, SELFPAY ==
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
[2023-08-13 16:01] VITALS: BP 123/67; PULSE 82; RESP 16; TEMP 36.8; O2SAT 100
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
[2023-08-13] MEDS: IBUPROFEN 400 MG TABLET 800 MG PO (16:34)
== END 2023-08-13 16:55 | disposition home or self-care (01) ==
PROVIDERS: Emergency Provider Nurse Practitioner; PCP Internal Medicine
DX: S00.83XA Contusion of other part of head, initial encounter (principal); Y04.8XXA Assault by other bodily force, initial encounter; J45.909 Unspecified asthma, uncomplicated; F17.210 Nicotine dependence, cigarettes, uncomplicated
CPT/HCPCS: 70110; 99213; A9270; G0463

== ENCOUNTER 2023-09-05 12:53 | Emergency (ER) | payer OTHER, SELFPAY ==
[2023-09-05 13:01] VITALS: BP 121/79; PULSE 82; RESP 16; TEMP 37.3; O2SAT 98
--- NOTE | 2023-09-05 13:17 | ED.URI ---
HPI - URI/Sore Throat General Chief Complaint: Upper Respiratory Infection Stated Complaint: Headache/Body Aches Time Seen by Provider: 09/05/23 13:18 Source: patient, RN notes reviewed and old records reviewed Mode of arrival: ambulatory Limitations: no limitations History of Present Illness HPI Narrative: 28 year old female with complaints of headache, head congestion, dizzy/lightheadedness, cough for the past 3 days also some body aches but reports no fevers or chills. Patient states that she has been taking her headache medicine and also taking NyQuil.Patient reports history of migraines MD elicited complaint: cough and other (body aches, head congestion,headaches) Pertinent past history: asthma Onset (ago): day(s) (3) Pain scale (0-10): 6 Treatments prior to arrival: other (NyQuil and headache medication) Related Data Home Medications Medication Instructions Recorded Confirmed ubrogepant 50 mg tablet (Ubrelvy) 50 mg PO DAILY PRN migraines 09/05/23 09/05/23 Allergies Allergy/AdvReac Type Severity Reaction Status Date / Time fluconazole [From Diflucan] Allergy Intermediate sores in Verified 09/05/23 13:02 mouth morphine Allergy Unknown Rash,ITCHIN Verified 09/05/23 13:02 G Contrast Media Allergy Unknown Other Uncoded 09/05/23 13:02 PURPLE GRAPES Allergy Unknown SWELLING, Uncoded 09/05/23 13:02 RASH Review of Systems Review of Systems: CONSTITUTIONAL: Denies malaise, chills, sweats, or fever. EYES: Denies visual changes, redness, or discharge. ENT: Reports rhinorrhea, congestion, sinus pain, no otalgia and no sore throat. CARDIOVASCULAR: Denies chest pain, palpitations, or edema. RESPIRATORY: Reports cough.? Denies dyspnea. GASTROINTESTINAL: Denies abdominal pain, nausea, vomiting, diarrhea SKIN: Denies rash or itching. MUSCULOSKELETAL:Reports myalgia. NEUROLOGIC:Reports headache. All systems reviewed & are unremarkable except as noted in HPI and below PMFSH Past Medical History Medical History (Updated 09/06/23 @ 21:30 by Sharyn Blanchard NP) Anxiety Asthma Bipolar disorder Colonoscopy planned Depression Encounter for screening examination for sexually transmitted disease HSV-2 infection Kidney stone Lupus (~11/18/21) Vaginal irritation Surgical History Surgical History (Updated 09/06/23 @ 21:25 by Sharyn Blanchard NP) History of ankle surgery lt ankle History of cholecystectomy Hx of eye surgery Family History Family History Grandparent Diabetes mellitus Cerebrovascular accident Other Diabetes mellitus Mother Thyroid disease Social History Social History (Updated 09/06/23 @ 21:26 by Sharyn Blanchard NP) Smoking packs per day: 1 Smoking cigarettes per day: 20.0 Years smoked: 8 Smoking pack-years: 8.00 Smoking status: Current every day smoker Tobacco type: cigarettes Second hand tobacco smoke exposure: Yes Alcohol intake: current Alcohol use details: rarely Substance use: never Living arrangements: with family Occupation/Education: unemployed Gender identity (if verbalized by the patient): Female Sexual Orientation (if Verbalized by the Patient): Straight or Heterosexual Spiritual care concerns: No Comments At time of signature, agree with nursing past medical, surgical, social and family history. There is no relevant family history pertinent to the presenting complaint Exam Narrative: GENERAL: Well-appearing, well-nourished, and in no acute distress. HEAD: Normocephalic EYES: PERRLA, conjunctivae clear ENT: Nares clear, turbinates edematous and erythematous, clear discharge, sinus pressure and headache. Mucous membranes moist. TM pearly adkins with dull light reflex bilaterally; no tragal tenderness. Oropharynx erythematous without lesions. Tonsils not enlarged and without exudate, no drooling, no hoarseness, no trismus, uvula midline.post nasal drain
== END 2023-09-05 14:00 | disposition home or self-care (01) ==
PROVIDERS: Emergency Provider Registered Nurse; PCP Internal Medicine
DX: J06.9 Acute upper respiratory infection, unspecified (principal); R05.9 Cough, unspecified; R51.9 Headache, unspecified; Z20.822 Contact with and (suspected) exposure to COVID-19; F17.210 Nicotine dependence, cigarettes, uncomplicated; J45.909 Unspecified asthma, uncomplicated
CPT/HCPCS: 87081; 87426; 87804; 87880; 99213; C9803; G0463

== ENCOUNTER 2023-10-14 15:33 | Emergency (ER) | payer OTHER, SELFPAY ==
--- NOTE | 2023-10-14 15:36 | ED.URI ---
HPI - URI/Sore Throat General Chief Complaint: Nausea/Vomiting/Diarrhea Stated Complaint: Vomiting/Nausea/Body Aches Time Seen by Provider: 10/14/23 16:08 Source: patient and RN notes reviewed Mode of arrival: ambulatory Limitations: no limitations History of Present Illness HPI Narrative: 28-year-old female presents concern for body aches, vomiting, diarrhea. Reports she vomited throughout the night, as last vomited this morning. Reports she has had diarrhea throughout the day today. He reports slight cough and runny nose. Denies sore throat, nasal congestion, fever. Reports her daughter has similar symptoms Related Data Allergies Allergy/AdvReac Type Severity Reaction Status Date / Time fluconazole [From Diflucan] Allergy Intermediate sores in Verified 10/14/23 15:47 mouth morphine Allergy Unknown Rash,ITCHIN Verified 10/14/23 15:47 G Contrast Media Allergy Unknown Other Uncoded 09/05/23 13:02 PURPLE GRAPES Allergy Unknown SWELLING, Uncoded 09/05/23 13:02 RASH Review of Systems Review of Systems: CONSTITUTIONAL: Denies malaise, chills, sweats, or fever. EYES: Denies visual changes, redness, or discharge. ENT: Reports rhinorrhea, congestion, sinus pain, otalgia and sore throat. CARDIOVASCULAR: Denies chest pain, palpitations, or edema. RESPIRATORY: Reports cough. Denies dyspnea. GASTROINTESTINAL: Denies abdominal pain, nausea, vomiting, diarrhea SKIN: Denies rash or itching. MUSCULOSKELETAL: Denies myalgia. NEUROLOGIC: Denies headache. All systems reviewed & are unremarkable except as noted in HPI and below PMFSH Past Medical History Medical History (Updated 10/14/23 @ 16:34 by Livia King NP) Anxiety Asthma Bipolar disorder Colonoscopy planned Depression Encounter for screening examination for sexually transmitted disease HSV-2 infection Kidney stone Lupus (~11/18/21) Vaginal irritation Surgical History Surgical History (Updated 09/06/23 @ 21:25 by Sharyn Blanchard NP) History of ankle surgery lt ankle History of cholecystectomy Hx of eye surgery Family History Family History Grandparent Diabetes mellitus Cerebrovascular accident Other Diabetes mellitus Mother Thyroid disease Social History Social History (Updated 09/06/23 @ 21:26 by Sharyn Blanchard NP) Smoking packs per day: 1 Smoking cigarettes per day: 20.0 Years smoked: 8 Smoking pack-years: 8.00 Smoking status: Current every day smoker Tobacco type: cigarettes Second hand tobacco smoke exposure: Yes Alcohol intake: current Alcohol use details: rarely Substance use: never Living arrangements: with family Occupation/Education: unemployed Gender identity (if verbalized by the patient): Female Sexual Orientation (if Verbalized by the Patient): Straight or Heterosexual Spiritual care concerns: No Comments At time of signature, agree with nursing past medical, surgical, social and family history. There is no relevant family history pertinent to the presenting complaint Exam Narrative: GENERAL: Well-appearing, well-nourished, and in no acute distress. HEAD: Normocephalic EYES: PERRLA, conjunctivae clear ENT: Nares clear. Mucous membranes moist. TM pearly adkins with sharp light reflex bilaterally; no tragal tenderness. Oropharynx not erythematous without lesions. Tonsils not enlarged and without exudate, no drooling, no hoarseness, no trismus, uvula midline. NECK: Supple. No lymphadenopathy CHEST: Clear to auscultation, breath sounds equal. No wheezing, rhonchi, rales, or stridor. No respiratory distress, speaks in full sentences. HEART: Regular rate and rhythm. No murmur heard. ABD: Nontender, normal bowel sounds SKIN: Warm, dry, no rash. NEURO: Alert and oriented x3. PSYCH: Normal mood and affect Course Course Emergency Course: Patient is aware of diagnosis, understands and agrees to treatment plan. Anticipatory g
[2023-10-14 15:43] VITALS: BP 116/75; PULSE 113; RESP 18; TEMP 37.6; O2SAT 99
== END 2023-10-14 16:38 | disposition home or self-care (01) ==
PROVIDERS: Emergency Provider Nurse Practitioner; PCP Internal Medicine
DX: R11.2 Nausea with vomiting, unspecified (principal); R19.7 Diarrhea, unspecified; J45.909 Unspecified asthma, uncomplicated; F17.210 Nicotine dependence, cigarettes, uncomplicated; Z20.822 Contact with and (suspected) exposure to COVID-19
CPT/HCPCS: 87426; 87804; 99213; C9803; G0463

== ENCOUNTER 2023-11-13 16:26 | Emergency (ER) | payer OTHER, SELFPAY ==
--- NOTE | ~2023-11-13 | XR_ITS ---
EXAM: XR foot LT min 3V DATE: 11/13/2023 17:23 HISTORY: NKI, 1ST MTP JOINT PAIN . COMPARISON: None available. FINDINGS: Normal mineralization. No fracture or dislocation. No lytic or blastic lesion. Mild degene rative change at the first MTP joint. Mild hallux valgus. Uncomplicated medial and lateral malleolar fixation hardware. No erosion or periosteal change. Soft tissues within normal limits. IMPRESSION: No acute osseous finding the left foot. 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 Reviewed, dictated and finalized at location K. RVISOR TOWER
[2023-11-13 16:31] VITALS: BP 127/67; PULSE 100; RESP 16; TEMP 36.7; O2SAT 100
--- NOTE | 2023-11-13 17:05 | ED.GENADULT ---
HPI - General Adult General Chief complaint: Extremity Problem,Nontraumatic Stated complaint: Left foot pain Source: patient, RN notes reviewed and old records reviewed Mode of arrival: ambulatory Limitations: no limitations History of Present Illness HPI narrative: 28-year-old female presents to [facility] with complaints of left foot pain this started approximately 1 week ago. Patient denies injury patient states has tried [id number] medications with no relief. Related Data Home Medications Medication Instructions Recorded Confirmed No Home Medications 11/13/23 11/13/23 Allergies Allergy/AdvReac Type Severity Reaction Status Date / Time fluconazole [From Diflucan] Allergy Intermediate sores in Verified 11/13/23 16:49 mouth morphine Allergy Unknown Rash,ITCHIN Verified 11/13/23 16:49 G Contrast Media Allergy Unknown Other Uncoded 09/05/23 13:02 PURPLE GRAPES Allergy Unknown SWELLING, Uncoded 09/05/23 13:02 RASH Review of Systems Constitutional: Constitutional: Reports no additional constitutional complaints, Denies body ache(s), Denies chills, Denies fatigue, Denies fever(s) and Denies headache(s) Eyes: Eyes: Reports no additional eye complaints and Denies blurry vision ENT: Reports system reviewed and no additional complaints, except as documented, Denies vertigo, Denies dizziness, Denies ear discharge, Denies otalgia, Denies facial pain, Denies headache(s), Denies nasal congestion, Denies nasal discharge, Denies sinus pain, Denies sinus pressure and Denies sore throat Cardiovascular: Cardiovascular: Reports no additional cardiovascular complaints, Denies chest pain, Denies chest pain at rest, Denies rapid heart rate and Denies dyspnea Respiratory: Respiratory: Reports no additional respiratory complaints, Denies chest congestion, Denies cough, Denies pain on inspiration, Denies pain with cough and Denies dyspnea Gastrointestinal: Gastrointestinal: Denies abdominal pain, Denies diarrhea, Denies nausea and Denies vomiting Musculoskeletal: Musculoskeletal: Reports as per HPI Comments: Left foot pain Integumentary/Breasts: Skin/Breast: Denies rash Neurologic: Reports system reviewed and no additional complaints, except as documented, Denies vertigo, Denies dizziness and Denies headache(s) Endocrine: Endocrine: Denies fatigue [facility] Past Medical History Medical History Anxiety Asthma Bipolar disorder Colonoscopy planned Depression Encounter for screening examination for sexually transmitted disease HSV-2 infection Kidney stone Lupus (~11/18/21) Vaginal irritation Surgical History Surgical History History of ankle surgery lt ankle History of cholecystectomy Hx of eye surgery Family History Family History Grandparent Diabetes mellitus Cerebrovascular accident Other Diabetes mellitus Mother Thyroid disease Social History Social History Smoking packs per day: 1 Smoking cigarettes per day: 20.0 Years smoked: 8 Smoking pack-years: 8.00 Smoking status: Current every day smoker Tobacco type: cigarettes Second hand tobacco smoke exposure: Yes Alcohol intake: current Alcohol use details: rarely Substance use: never Living arrangements: with family Occupation/Education: unemployed Gender identity (if verbalized by the patient): Female Sexual Orientation (if Verbalized by the Patient): Straight or Heterosexual Spiritual care concerns: No Comments At the time of my signature, I reviewed and agree with the nursing past medical, surgical, social, and family history. There is no relevant family history pertinent to the patient complaint. Exam Const: General: cooperative, healthy appearing, no acute distress and well
== END 2023-11-13 17:40 | disposition home or self-care (01) ==
PROVIDERS: Emergency Provider Registered Nurse; PCP Internal Medicine
DX: S93.602A Unspecified sprain of left foot, initial encounter (principal); X58.XXXA Exposure to other specified factors, initial encounter; J45.909 Unspecified asthma, uncomplicated; F17.210 Nicotine dependence, cigarettes, uncomplicated
CPT/HCPCS: 73630; 99213; G0463

== ENCOUNTER 2024-09-09 15:39 | Outpatient (CLI) | payer OTHER, SELFPAY ==
[2024-09-09 16:38] LABS: Beta HCG Quantitative < 2.39 mIU/ML
== END 2024-09-09 15:40 | disposition home or self-care (01) ==
LOC: ANHLAB 15:40
PROVIDERS: PCP Internal Medicine; Visit Provider Obstetrics & Gynecology
DX: N91.2 Amenorrhea, unspecified (principal)
CPT/HCPCS: 36415; 84702

== ENCOUNTER 2024-10-17 13:41 | Emergency (ER) | payer OTHER, SELFPAY ==
--- NOTE | ~2024-10-17 | XR_ITS ---
XR hand RT min 3V DATE: 10/17/2024 14:01 INDICATION: Jammed right ring finger. Swelling of fifth digit. TECHNIQUE: 3 views of right hand COMPARISON: 01/17/2023 4th digit FINDINGS: Again noted is a lucent lesion of the base and shaft of the distal phalanx of the fourth di git, stable since 01/17/2023. Since 01/17/2023 however there is a subtle virtually nondisplaced pathologi c fracture through this lesion at the base of the distal phalanx. No other fracture or dislocation, periosteal reaction or bone destruction is detected. IMPRESSION: Virtually nondisplaced pathologic fracture through the base of the distal phalanx at the chronic benign lucent lesion which is most likely an enchondroma; differential diagnosis includes epi dermoid inclusion cyst, simple or aneurysmal bone cyst. Reviewed, dictated and finalized at location A. CLEANER IMPRESSION: Virtually nondisplaced pathologic fracture through the base of the distal phalanx at the chronic benign lucent lesion which is most likely an ench ondroma; differential diagnosis includes epidermoid inclusion cyst, simple or a neurysmal bone cyst.
[2024-10-17 13:44] VITALS: BP 114/75; PULSE 78; RESP 16; TEMP 36.8; O2SAT 100
--- NOTE | 2024-10-17 14:02 | ED_ITS ---
HPI - Extremity Injury (Upper) General Chief Complaint: Extremity Injury, Upper Stated Complaint: Right hand ring finger injury Time Seen by Provider: 10/17/24 14:02 Source: patient, RN notes reviewed and old records reviewed Mode of arrival: ambulatory Limitations: no limitations History of Present Illness HPI narrative: 29 year old female presents to [facility] care with complaints of jamming her right ring finger when getting kid out of car last evening, thinks she hit it on car seat. Patient does have splint from home that she is wearing to her right 4th finger, reports that she has been taking Tylenol and Ibuprofen and applying ice to her right hand. Patient reports also some discomfort to her 5th finger right hand with no swelling or redness to 5th finger. MD complaint: injury to: right and hand (ring finger) Onset (ago): day(s) (last pm) Handedness: right Severity scale (1-10): 10 Treatments prior to arrival: cold therapy, NSAIDS, splint and other (Tylenol) Related Data Allergies Allergy/AdvReac Type Severity Reaction Status Date / Time fluconazole [From Diflucan] Allergy Intermediate sores in Verified 03/19/24 10:47 mouth morphine Allergy Unknown Rash,ITCHIN Verified 03/19/24 10:47 G Contrast Media Allergy Unknown Other Uncoded 03/19/24 10:47 PURPLE GRAPES Allergy Unknown SWELLING, Uncoded 03/19/24 10:47 RASH Review of Systems Review of Systems: CONSTITUTIONAL: Denies fever, chills, or sweats. EYES: Denies visual changes, redness, or discharge. ENT: Denies rhinorrhea, congestion, sore throat, or otalgia. CARDIOVASCULAR: Denies chest pain, palpitations, or edema. RESPIRATORY: Denies cough or dyspnea. GASTROINTESTINAL: Denies abdominal pain, nausea, vomiting, or diarrhea. GENITOURINARY: Denies dysuria or hematuria. SKIN: Denies rash or itching. MUSCULOSKELETAL: Denies back pain, reports acute pain to the distal aspect of her distal right ring finger minimal pain to 5th finger,, or myalgia. NEUROLOGIC: Denies headache, numbness, or weakness. PSYCHIATRIC: Denies anxiety or depression. All systems reviewed & are unremarkable except as noted in HPI and below PMFSH Past Medical History Medical History Abnormal uterine bleeding (AUB) Anxiety Asthma Bipolar disorder Colonoscopy planned Depression Encounter for screening examination for sexually transmitted disease HSV-2 infection Kidney stone Lupus (~11/18/21) Vaginal irritation Surgical History Surgical History History of ankle surgery lt ankle History of cholecystectomy History of endometrial ablation History of tubal ligation Hx of eye surgery Family History Family History Grandparent Diabetes mellitus Cerebrovascular accident Other Diabetes mellitus Mother Thyroid disease Social History Social History Smoking packs per day: 1 Smoking cigarettes per day: 20.0 Years smoked: 8 Smoking pack-years: 8.00 Smoking status: Current every day smoker Tobacco type: cigarettes Second hand tobacco smoke exposure: Yes Alcohol intake: current Alcohol use details: rarely Substance use: never Current Housing: Decline to Answer Concerned About Future Housing: Decline to Answer Difficulty Paying Gas/Electric Bills: Decline to Answer Difficulty Paying for Meds: Decline to Answer Currently Unemployed: Decline to Answer Education: Decline to Answer Difficulty w/ Childcare or Family Care: Decline to Answer Living arrangements: with family Occupation/Education: unemployed Gender identity (if verbalized by the patient): Female Sexual Orientation (if Verbalized by the Patient): Straight or Heterosexual Spiritual care concerns: No Comments At time of signature, agree with nursing past medical, surgical, social and family history. There is no relevant family history pertinent to the presenting complaint Exam Narrative: GENERAL: Well-appearing, well-nourished, and in some acute distress. HEAD: Normocephalic, atraumatic. EYES: PERRLA and EOMI. ENT: Nares clear, no rhinorrhea or epistaxis. Mucous membranes moist. NECK: Supple. no lymphadenopathy CHEST: Clear to auscultation. No respiratory distress.SAO2 100% on room air HEART: Regular rate and rhythm. No murmur heard. Normal peripheral pulses. ABDOMEN: Soft, nontender, nondistended, normal active bowel sounds. EXTREMITIES: Normal range of motion. No edema.Exception noted to pain and swelling of distal right 4th finger with decreased mobility, pain,sensation and circulation intact, also reports some discomfort to 5th finger with no swelling or redness noted full mobility of 5th finger. Patient has strong right radial pulse. SKIN: Warm, dry, no rash. NEURO: No focal deficits. Alert and oriented x3. Course Course Emergency Course: Patient is aware of diagnosis, understands and agrees to treatment plan.? Anticipatory guidance given.? Patient agrees to follow-up as directed and is aware of reasons to seek care at the emergency department. Portions of this record may have been created with voice recognition software Level of Care: Express Care Visit Vital Signs Vital signs: Vital Signs Temperature 36.8 C 10/17/24 13:44 Pulse Rate 78 10/17/24 13:44 Respiratory Rate 16 10/17/24 13:44 Blood Pressure 114/75 10/17/24 13:44 Pulse Oximetry 100 10/17/24 13:44 Oxygen Delivery Room Air 10/17/24 13:44 Temperature 36.8 C 10/17/24 13:44 Pulse Rate 78 10/17/24 13:44 Respiratory Rate 16 10/17/24 13:44 Blood Pressure 114/75 10/17/24 13:44 Pulse Oximetry 100 10/17/24 13:44 Oxygen Delivery Room Air 10/17/24 13:44 Reviewed MDM - Extremity Injury (Upper) Differential Diagnosis Differential diagnosis: Likely finger sprain, fracture of hand and other (patholical fracture of 4th distal phalanx right hand,lucent lesion distal right ring finger) Medical Records Attestation: I reviewed the patient's medical records. Imaging Data Attestation: I personally reviewed and interpreted this imaging study as follows: My impression: non displaced pathological fracture through the base of distal phalanx of right 4th finger, Noted lucent lesion base and shaft of distal 4th phalanx which was noted on x-ray film 01/17/2023 Radiologist's impression: Express [facility] [address] [place] [address] XRay Report Signed Patient: Sabina Chandler : 1995 MR#: [id number] Age: 29 Acct:[id number] Loc: [facility] ADM Date: 10/17/24Attending Dr: Ordering Physician: Sharyn Blanchard APRN Date of Service: 10/17/24 Procedure(s): XR hand RT min 3V Accession Number(s): [id number] cc: Felix, Kostas Lozano MD; Lo Sharyn Ruma SANDOVALN~ XR hand RT min 3V DATE: 10/17/2024 14:01 INDICATION: Jammed right ring finger. Swelling of fifth digit. TECHNIQUE: 3 views of right hand COMPARISON: 01/17/2023 4th digit FINDINGS: Again noted is a lucent lesion of the base and shaft of the distal phalanx of the fourth digit, stable since 01/17/2023. Since 01/17/2023 however there is a subtle virtually nondisplaced pathologic fracture through this lesion at the base of the distal phalanx. No other fracture or dislocation, periosteal reaction or bone destruction is detected. IMPRESSION: Virtually nondisplaced pathologic fracture through the base of the distal phalanx at the chronic benign lucent lesion which is most likely an enchondroma; differential diagnosis includes epidermoid inclusion cyst, simple or aneurysmal bone cyst. Reviewed, dictated and finalized at location A. EACH AND EDUCATION SOCIAL WORKER Dictated By: Myron Cantu MD 10/17/24 1402 Signed By: <Electronically signed by Myron Cantu MD in OV> Critical Care Time Critical Care Time Critical Care Time: No Discharge Plan Discharge Clinical Impression: Fracture, finger, distal phalanx, Lesion of bone of right hand Patient Disposition: Home, Self-Care Condition: Stable Instructions: Antibiotic Form, Finger Fracture (ED) Additional Instructions: Splint that patient has for comfort until seen by Ortho or hand surgeon Tylenol for lesser pain Ibuprofen regularly for the next 2-3 days for the inflammation Use the medication as provided for severe pain--caution each tablet contains 325 mg of Tylenol--the maximum dose of Tylenol is 4000 mg in 24 hours. This medication may cause constipation consider starting a laxative at this time Follow-up with orthopedic surgeon Dr. Christiansen is ortho online project manager [phone] for appt Follow-up with PCP if further problems or concerns Ice to the area 20-30 minutes 4-6 times a day Elevate above heart If your symptoms persist, change or worsen significantly before you can contact your personal physician then please, without delay, go to the emergency department for further evaluation. Follow-up with PCP in 7-10 days or sooner if needed Prescriptions: New hydrocodone-acetaminophen 5-325 mg tablet 1 tablet PO Q6H PRN (Reason: pain) Qty: 10 0RF Follow-up/Referrals: Felix,Kostas Lozano MD [Primary Care Provider] - Herbert London MD [Physician] - 1 Week (pathological fracture to 4th distal r ight ring finger with lucent lesion of base and shaft of 4th distal phalanx ) Time of Disposition: 14:46 Quality Gavin Coma Scale Eyes: Open Verbal: Oriented and Alert Motor: Follows Commands [place] Coma Total Score: 15
== END 2024-10-17 14:53 | disposition home or self-care (01) ==
PROVIDERS: Emergency Provider Registered Nurse; PCP Internal Medicine
DX: S62.644A Nondisplaced fracture of proximal phalanx of right ring finger, initial encounter for closed fracture (principal); W22.8XXA Striking against or struck by other objects, initial encounter; M89.9 Disorder of bone, unspecified; F17.210 Nicotine dependence, cigarettes, uncomplicated; J45.909 Unspecified asthma, uncomplicated
CPT/HCPCS: 73130; 99203; G0463

== ENCOUNTER 2024-11-20 10:48 | Outpatient (CLI) | payer OTHER, SELFPAY ==
--- NOTE | ~2024-11-20 | XR_ITS ---
EXAMINATION: XR finger 4th RT min 2V DATE: 11/20/2024 11:10 INDICATION: Right fourth digit fracture TECHNIQUE: Dorsal palmar, lateral and 2 oblique views of the right fourth digit were obtained COMPARISON: 10/17/2024 FINDINGS: There is persistent subtle linear lucency extending across the base of the fourth distal phalanx cons istent with nondisplaced fracture. No evident periosteal reaction or other productive changes of heal ing. The fracture is again noted to extend across a lucent in the region of the metaphyseal region at the base of the distal phalanx suspicious for underlying lytic lesion. No new fractures identified. Joint spaces are normal. IMPRESSION: 1. No significant change in a nondisplaced extra-articular fracture at the proximal metaphysis of the right fourth proximal phalanx. This appears likely pathologic secondary to a lucent lesion which cou ld represent meningioma, epidermoid inclusion cyst and simple or aneurysmal bone cyst. Reviewed, dictated and finalized at location B. ENSING OPERATOR IMPRESSION: 1. No significant change in a nondisplaced extra-articular fracture at the prox imal metaphysis of the right fourth proximal phalanx. This appears likely patho logic secondary to a lucent lesion which could represent meningioma, epidermoid inclusion cyst and simple or aneurysmal bone cyst.
== END 2024-11-20 10:49 | disposition home or self-care (01) ==
LOC: ANHIMG 10:50
PROVIDERS: PCP Internal Medicine; Visit Provider Plastic Surgery
DX: S62.664A Nondisplaced fracture of distal phalanx of right ring finger, initial encounter for closed fracture (principal)
CPT/HCPCS: 73140

== ENCOUNTER 2024-12-02 15:26 | Emergency (ER) | payer OTHER, SELFPAY ==
[2024-12-02 15:30] VITALS: BP 115/72; PULSE 94; RESP 20; TEMP 36.9; O2SAT 99
--- NOTE | 2024-12-02 15:37 | ED_ITS ---
HPI - URI/Sore Throat General Chief Complaint: Upper Respiratory Infection Stated Complaint: Cough/Congestion/Headache Time Seen by Provider: 12/02/24 15:37 Source: patient Mode of arrival: ambulatory Limitations: no limitations History of Present Illness HPI Narrative: 29-year-old female presents with complaint of cough, chest congestion, sinus congestion, headache, fatigue for 5 days. Afebrile. Not taking any [id number]-[id number] medications to treat her symptoms. Cough seemed worse this morning when waking up and called into work. No chest pain or shortness of breath at this time. All systems reviewed and negative except as noted above. Related Data Allergies Allergy/AdvReac Type Severity Reaction Status Date / Time fluconazole (From Diflucan) Allergy Intermediate sores in Verified 12/02/24 15:36 mouth morphine Allergy Unknown Rash,ITCHIN Verified 12/02/24 15:36 G Contrast Media Allergy Unknown Other Uncoded 11/20/24 10:14 PURPLE GRAPES Allergy Unknown SWELLING, Uncoded 11/20/24 10:14 RASH Review of Systems Review of Systems: CONSTITUTIONAL: Denies fever, chills, or sweats. reports fatigue. EYES: Denies visual changes, redness, or discharge. ENT: Reports rhinorrhea, congestion, sinus congestion. Denies sore throat, or otalgia. CARDIOVASCULAR: Denies chest pain, palpitations, or edema. RESPIRATORY: Reports cough, chest congestion. Denies dyspnea. GASTROINTESTINAL: Denies abdominal pain, nausea, vomiting, or diarrhea. GENITOURINARY: Denies dysuria or hematuria. SKIN: Denies rash or itching. MUSCULOSKELETAL: Denies back pain, joint pain, or myalgia. NEUROLOGIC: Denies headache, numbness, or weakness. PSYCHIATRIC: Denies anxiety or depression. All other systems reviewed are negative, except as documented in HPI. [facility] Past Medical History Medical History Abnormal uterine bleeding (AUB) Kidney stone Vaginal irritation Colonoscopy planned HSV-2 infection Lupus (~11/18/21) Encounter for screening examination for sexually transmitted disease Depression Bipolar disorder Asthma Anxiety Surgical History Surgical History History of endometrial ablation History of tubal ligation History of cholecystectomy History of ankle surgery lt ankle Hx of eye surgery Family History Family History Grandparent Diabetes mellitus Cerebrovascular accident Other Diabetes mellitus Mother Thyroid disease Social History Social History Smoking packs per day: 1 Smoking cigarettes per day: 20.0 Years smoked: 8 Smoking pack-years: 8.00 Smoking status: Current every day smoker Tobacco type: cigarettes Second hand tobacco smoke exposure: Yes Alcohol intake: current Alcohol use details: rarely Substance use: never Current Housing: Decline to Answer Concerned About Future Housing: Decline to Answer Difficulty Paying Gas/Electric Bills: Decline to Answer Difficulty Paying for Meds: Decline to Answer Currently Unemployed: Decline to Answer Education: Decline to Answer Difficulty w/ Childcare or Family Care: Decline to Answer Living arrangements: with family Occupation/Education: unemployed Gender identity (if verbalized by the patient): Female Sexual Orientation (if Verbalized by the Patient): Straight or Heterosexual Spiritual care concerns: No Comments At time of signature, agree with nursing past medical, surgical, social and family history. There is no relevant family history pertinent to the presenting complaint. Exam Narrative: GENERAL: This is a well-nourished, well-developed patient, in no apparent distress. HEAD: normocephalic, atraumatic. EYES: PERRL. Sclera clear/white. Vision is grossly intact. EARS: External ears normal, auditory canals clear and without drainage, TMs normal without perforation. Hearing grossly intact. NOSE: External nose normal with mild congestion, clear nasal drainage, erythema and swelling to bilateral nares THROAT: Mucous membranes moist, clear postnasal drainage with mild erythema. No swelling or exudates.. NECK: Neck supple, non-tender without lymphadenopathy, masses or thyromegaly. CARDIOVASCULAR: Regular rate and rhythm without murmurs, gallops, or rubs. RESPIRATORY: Clear to auscultation. Breath sounds equal bilaterally. No wheezes, rales, or rhonchi. SKIN: warm, Dry, intact with no suspicious lesions or rash, good texture and turgor. NEURO: awake, alert, and oriented to person, place and time. There were no obvious focal neurologic abnormalities. EXTREMITIES: No joint tenderness, effusion, or edema noted. Course Course Level of Care: Express Care Visit Vital Signs Vital signs: Vital Signs Temperature 36.9 C 12/02/24 15:30 Pulse Rate 94 12/02/24 15:30 Respiratory Rate 20 12/02/24 15:30 Blood Pressure 115/72 12/02/24 15:30 Pulse Oximetry 99 12/02/24 15:30 Oxygen Delivery Room Air 12/02/24 15:30 Temperature 36.9 C 12/02/24 15:30 Pulse Rate 94 12/02/24 15:30 Respiratory Rate 20 12/02/24 15:30 Blood Pressure 115/72 12/02/24 15:30 Pulse Oximetry 99 12/02/24 15:30 Oxygen Delivery Room Air 12/02/24 15:30 Reviewed MDM - URI/Sore Throat MDM Narrative Medical decision making narrative: Patient is aware of diagnosis, understands and agrees to treatment plan. Anticipatory guidance given. Patient agrees to follow-up as directed and is graciela re of reasons to seek care at the emergency department. Portions of this record may have been created with voice recognition software patient well-appearing, nontoxic. Lungs clear to auscultation. will treat patient for a viral upper respiratory. Differential Diagnosis Differential diagnosis: Likely upper respiratory infection, sinusitis, viral infection and bronchitis Discharge Plan Discharge Clinical Impression: Viral upper respiratory tract infection with cough Patient Disposition: Home, Self-Care Condition: Stable Instructions: Upper Respiratory Infection (ED) Additional Instructions: your symptoms are viral and may last 10-14 days. Take medications as prescribed. Drink at least 64 oz of water a day. Place cool mist humidifier in bedroom where you sleep. Follow-up with your primary care physician if symptoms are not improving. Patient Language: Kiswahili Prescriptions: New benzonatate 200 mg capsule 200 mg PO TID PRN (Reason: cough) Qty: 20 0RF methylprednisolone [Medrol (Kunal)] 4 mg tablets,dose pack See Rx Instructions PO .COMPLEX Qty: 21 0RF Rx Instructions: orally per package directions fluticasone propionate [Flonase Allergy Relief] 50 mcg/actuation spray,suspension 1 spray intranasal BID Qty: 16 0RF Rx Instructions: administer into each nostril Claritin-D 12 Hour 5-120 mg tablet extended release 12 hr 1 tablet PO Q12H PRN (Reason: nasal congestion) Qty: 20 0RF Follow-up/Referrals: Felix,Kostas Lozano MD [Primary Care Provider] - Stand Alone Forms: Work/School Release IP Time of Disposition: 15:52
== END 2024-12-02 15:56 | disposition home or self-care (01) ==
PROVIDERS: Emergency Provider Nurse Practitioner Family; PCP Internal Medicine
DX: J06.9 Acute upper respiratory infection, unspecified (principal); R05.9 Cough, unspecified; F17.210 Nicotine dependence, cigarettes, uncomplicated; J45.909 Unspecified asthma, uncomplicated
CPT/HCPCS: 99213; G0463

== ENCOUNTER 2025-02-15 10:23 | Outpatient (CLI) | payer OTHER, SELFPAY ==
--- NOTE | ~2025-02-15 | XR_ITS ---
EXAMINATION: XR finger 4th RT min 2V DATE: 02/15/2025 10:38 INDICATION: Nondisplaced fracture of distal phalanx of right hand fourth digit. TECHNIQUE: 4 views of right hand fourth digit were obtained. COMPARISON: Right hand fourth digit radiographs 11/20/2024 FINDINGS: There is a nonaggressive expansile lytic lesion of base of fourth distal phalanx. There is a nondisplaced stellate pathologic fracture with some callus formation. Joint spaces are normal. IMPRESSION: 1. Lytic lesion of fourth distal phalanx with healing pathologic fracture. The differential diagnosis includes enchondroma, epidermoid inclusion cyst, simple bone cyst, and aneurysmal bone cyst. Reviewed, dictated and finalized at location A.
--- OUTSIDE RECORDS SUMMARY | 2025-02-15 11:38 | XMS_ITS | Continuity of Care Document ---
Author Organization [facility] Address [address] [place] [address] Phone Care Team Providers Care Manipulator Operator Name Role Phone Alvaro Soriano DO Unavailable Unavailable Advance Directives Directive Yes / No Effective Date File Name No Information Encounters Encounter Description Practice Location Reason(s) For Visit Diagnoses Date Provider Providers Copied on Encounter [facility], [address], [place], [place], [id number], [phone] [facility] [place] No Information Bo Abbott. [address] [place], [address], . tel: [phone] Family History Family Member Type Diagnosis Age At Onset No Information Payers Payer name Insurance type Covered republican ID Authoriza tion(s) Medicaid [facility] [id number] Social History Type Description Quantity Date Captured Comments Sex Female Smoking Status No Information Chief Complaint And Reason For Visit No Information Reason For Referral Reason For Referral No Information History Of Present Illness Encounter Date Complaint History Of Prese nt Illness No Information Functional Status Date Functional Assessmen t No Information Instructions Date Instruction Additional Infor mation No Information Assessments Type Assessment Date No Information Patient Care Teams Name Effective Dates (start - stop) Status Members No Information
== END 2025-02-15 10:24 | disposition home or self-care (01) ==
PROVIDERS: PCP Internal Medicine; Visit Provider Plastic Surgery
DX: S62.664D Nondisplaced fracture of distal phalanx of right ring finger, subsequent encounter for fracture with routine healing (principal)
CPT/HCPCS: 73140

== ENCOUNTER 2025-03-04 07:00 | Outpatient (NON) | payer OTHER, SELFPAY ==
--- OUTSIDE RECORDS SUMMARY | 2025-03-05 09:00 | XMS_ITS | Data Portability ---
Author Organization [place] - [place] [employer], Main Office Address [address] [place] [address] Care Team Providers Care Candy Mixer Name Role Phone RASHAUN GREEN Primary Care Provider [phone] RASHAUN GREEN Referring Provider [phone] AMANDA HENDERSON Photonics Engineering Technician Unavailable Assessment Encounter Date Assessment Date Assessment [...] Lab CMP, serum or plasma [address] (Lab), [address] [place] [address], [address], 3 12:35:55 CBC w/ auto diff 2022 023 [facility] (Lab), [address] [place] [address], [address], 3 19:16:03 PT/PTT, plasma 2022 023 [facility] (Lab), [address] [place] [address], [address], 3 00:19:18 CMP, serum or plasma 2022 023 [facility] (Lab), [address] [place] [address], [address], 3 19:30:13 TSH, serum or plasma 2022 023 [facility] Not available 19:58:13 lipid panel, serum 2022 023 [facility] (Lab), [address] [place] [address], [address], 3 19:30:18 Referral physical therapist referral - Please contact patient to schedule 2023 024 [email or web address] [facility], [address], [address], [place], [address], 13:25:35 Procedures injection/a spiration joint/bursa (PROC) 2023 024 [email or web address] In-Office Order, Internal Use Only DO Not Attach Compendium DO Not Attach Compendium, Do Not Delete/merge, [address] 12:51:32 Surgeries None recorded. Imaging None recorded. Medication Orders Marcaine (PF) 0.5 % (5 mg/mL) injection solution 2023 024 [email or web address] #[id number], [address], [place], [place], [id number], 4 12:51:33 Kenalog 10 mg/mL suspension for injection [address] [facility][id number], [address], [place], [place], [id number], 4 12:51:32 prednisone 10 mg tablets in a dose pack 2023 024 [facility] #[id number], [address], [place], [place], [id number], 4 12:51:42 ibuprofen 800 mg tablet 2022 023 [email or web address] [facility] #50240, [address], [place], [place], [id number], 4 12:05:45 cyclobenzap rine 5 mg tablet 2022 023 [facility] #[id number], [address], [place], [place], [id number], 4 12:05:14 Patient TargetsNo targets recorded. Patient [...] 4.6 x10'3 /uL 4.2-10 .8 Not Available [facility] (Lab) [address] [place], [address], 06/18/2023 19:16:02 06/18/2006/18/2023 CBC/C OMPLE TE BLD COUNT W/DIF F red blood cells 4.28 x10'6 /uL 3.80-5 .20 Not Available [facility] (Lab) [address] [place], [address], 06/18/2023 19:16:02 06/18/2006/18/2023 CBC/C OMPLE TE BLD COUNT W/DIF F hemoglobin 13.0 g/dL 12.0-1 5.6 Not Available [facility] (Lab) [address] [place], [address], 06/18/2023 19:16:02 06/18/2006/18/2023 CBC/C OMPLE TE BLD COUNT W/DIF F hematocrit 39.6 % 35.7-4 5.7 Not Available [facility] (Lab) [address] [place], [address], 06/18/2023 19:16:02 06/18/2006/18/2023 CBC/C OMPLE TE BLD COUNT W/DIF F mean red cell volume 92.5 fL 82.0-9 9.0 Not Available [facility] (Lab) [address] [place], [address], 06/18/2023 19:16:02 06/18/20 23 06/18/2023 CBC/C OMPLE TE BLD COUNT W/DIF F mean red cell hemoglobin 30.4 pg 27.0-3 3.0 Not Available [facility] (Lab) [address] [place], [address], 06/18/2023 19:16:02 06/18/20 23 06/18/2023 CBC/C OMPLE TE BLD COUNT W/DIF F mean RBC HGB concentratio n 32.8 g/dL 31.0-3 6.0 Not Available [facility] (Lab) [address] [place], [address], 06/18/2023 19:16:02 06/18/2006/18/2023 CBC/C OMPLE TE BLD COUNT W/DIF F red cell distribution width 12.6 % 11.8-1 5.5 Not Available [facility] (Lab) [address] [place], [address], 06/18/2023 19:16:02 06/18/2006/18/2023 CBC/C OMPLE TE BLD COUNT W/DIF F platelets 190 x10'3 /uL 150-40 0 Not Available [facility] (Lab) [address] [place], [address], 06/18/2023 19:16:02 06/18/2006/18/2023 CBC/C OMPLE TE BLD COUNT W/DIF F mean platelet volume 12.6 fL 9.0-12 .4 high Not Available [facility] (Lab) [address] [place], [address], 06/18/2023 19:16:02 06/18/20 23 06/18/2023 CBC/C OMPLE TE BLD COUNT W/DIF F neutrophils 64.1 % 39.0-7 2.0 Not Available [facility] (Lab) [address] [place], [address], 06/18/2023 19:16:02 06/18/2006/18/2023 CBC/C OMPLE TE BLD COUNT W/DIF F lymphocytes 27.1 % 16.0-4 7.0 Not Available [facility] (Lab) [address] [place], [address], 06/18/2023 19:16:02 06/18/2006/18/2023 CBC/C OMPLE TE BLD COUNT W/DIF F monocytes 7.6 % 5.0-12 .0 Not Available [facility] (Lab) [address] [place], [address], 06/18/2023 19:16:02 06/18/2006/18/2023 CBC/C OMPLE TE BLD COUNT W/DIF F eosinophils 0.6 % 1.0-7. 0 low Not Available [facility] (Lab) [address] [place], [address], 06/18/2023 19:16:02 06/18/2006/18/2023 CBC/C OMPLE TE BLD COUNT W/DIF F basophils 0.4 % 0.0-2. 0 Not Available [facility] (Lab) [address] [place], [address], 06/18/2023 19:16:02 06/18/2006/18/2023 CBC/C OMPLE TE BLD COUNT W/DIF F immature granulocytes 0.2 % 0.00-0 .50 Not Available [facility] (Lab) [address] [place], [address], 06/18/2023 19:16:02 06/18/2006/18/2023 CBC/C OMPLE TE BLD COUNT W/DIF F neutrophils, absolute count 2.96 x10'3 /uL 1.5-8. 0 Not Available [facility] (Lab) [address] [place], [address], 06/18/2023 19:16:02 06/18/2006/18/2023 CBC/C OMPLE TE BLD COUNT W/DIF F lymphocytes, absolute count 1.25 x10'3 /uL 1.07-3 .43 Not Available [facility] (Lab) [address] [place], [address], 06/18/2023 19:16:02 06/18/2006/18/2023 CBC/C OMPLE TE BLD COUNT W/DIF F monocytes, absolute count 0.35 x10'3 /uL 0.29-0 .99 Not Available [facility] (Lab) [address] [place], [address], 06/18/2023 19:16:02 06/18/2006/18/2023 CBC/C OMPLE TE BLD COUNT W/DIF F eosinophils, absolute count 0.03 x10'3 /uL 0.02-0 .53 Not Available [facility] (Lab) [address] [place], [address], 06/18/2023 19:16:02 06/18/2006/18/2023 CBC/C OMPLE TE BLD COUNT W/DIF F basophils, absolute count 0.02 x10'3 /uL 0.01-0 .08 Not Available [facility] (Lab) [address] [place], [address], 06/18/2023 19:16:02 06/18/2006/18/2023 CBC/C OMPLE TE BLD COUNT W/DIF F immature granulocytes ,absolute 0.01 x10'3 /uL 0.00-0 .05 Not Available [facility] (Lab) [address] [place], [address], 06/18/2023 19:16:02 06/18/2006/18/2023 CBC/C OMPLE TE BLD COUNT W/DIF F nucleated red blood cells 0.0 % -0 Not Available [facility] (Lab) [address] [place], [address], 06/18/2023 19:16:02 06/18/20 23 06/18/2023 CBC/C OMPLE TE BLD COUNT W/DIF F NRBC# 0.00 x10'3 /uL Not Available [facility] (Lab) [address] [place], [address], 06/18/2023 19:16:02 06/18/20 23 06/18/2023 COMPR EHENS ALLEGRA METAB OLIC PANEL sodium 141 mmol/ L 137-14 5 Not Available [facility] (Lab) [address] [place], [address], 06/18/2023 19:30:13 06/18/20 23 06/18/2023 COMPR EHENS ALLEGRA METAB OLIC PANEL potassium 4.0 mmol/ L 3.5-5. 1 Not Available [facility] (Lab) [address] [place], [address], 06/18/2023 19:30:13 06/18/20 23 06/18/2023 COMPR EHENS ALLEGRA METAB OLIC PANEL chloride 108 mmol/ L 98-107 high Not Available [facility] (Lab) [address] [place], [address], 06/18/2023 19:30:13 06/18/20 23 06/18/2023 COMPR EHENS ALLEGRA METAB OLIC PANEL carbon dioxide 24 mmol/ L 22-30 Not Available [facility] (Lab) [address] [place], [address], 06/18/2023 19:30:13 06/18/20 23 06/18/2023 COMPR EHENS ALLEGRA METAB OLIC PANEL anion gap 13.0 mmol/ L 14-22 low Not Available [facility] (Lab) [address] [place], [address], 06/18/2023 19:30:13 06/18/20 23 06/18/2023 COMPR EHENS ALLEGRA METAB OLIC PANEL glucose 95 mg/dL 70-99 Not Available [facility] (Lab) [address] [place], [address], 06/18/2023 19:30:13 06/18/2006/18/2023 COMPR EHENS ALLEGRA METAB OLIC PANEL BUN 8 mg/dL 8-19 Not Available [facility] (Lab) [address] [place], [address], 06/18/2023 19:30:13 06/18/2006/18/2023 COMPR EHENS ALLEGRA METAB OLIC PANEL creatinine 0.68 mg/dL 0.66-1 .25 Not Available [facility] (Lab) [address] [place], [address], 06/18/2023 19:30:13 06/18/2006/18/2023 COMPR EHENS ALLEGRA METAB OLIC PANEL GFR >60 Refer ence Range : [place] ge GFR Healt hy Adult : >60 [...] calcu lator is avail able on the [facility] websi te: [email or web address] :[email or web address] [email or web address] or Not Available [facility] (Lab) [address] [place], [address], 06/18/2023 19:30:13 06/18/20 23 06/18/2023 COMPR EHENS ALLEGRA METAB OLIC PANEL alkaline phosphatase 58 U/L 38-126 Not Available [facility] (Lab) [address] [place], [address], 06/18/2023 19:30:13 06/18/20 23 06/18/2023 COMPR EHENS ALLEGRA METAB OLIC PANEL alanine aminotransfe rase 15 U/L 0-35 Not Available [facility] (Lab) [address] [place], [address], 06/18/2023 19:30:13 06/18/20 23 06/18/2023 COMPR EHENS ALLEGRA METAB OLIC PANEL aspartate aminotransfe rase 18 U/L 15-37 Not Available [facility] (Lab) [address] [place], [address], 06/18/2023 19:30:13 06/18/20 23 06/18/2023 COMPR EHENS ALLEGRA METAB OLIC PANEL bilirubin, total 0.30 mg/dL 0.20-1 .30 Not Available [facility] (Lab) [address] [place], [address], 06/18/2023 19:30:13 06/18/20 23 06/18/2023 COMPR EHENS ALLEGRA METAB OLIC PANEL calcium 9.4 mg/dL 8.4-10 .2 Not Available [facility] (Lab) [address] [place], [address], 06/18/2023 19:30:13 06/18/20 23 06/18/2023 COMPR EHENS ALLEGRA METAB OLIC PANEL total protein 7.5 g/dL 6.3-8. 2 Not Available [facility] (Lab) [address] [place], [address], 06/18/2023 19:30:13 06/18/20 23 06/18/2023 COMPR EHENS ALLEGRA METAB OLIC PANEL albumin 4.3 g/dL 3.4-5. 0 Not Available [facility] (Lab) [address] [place], [address], 06/18/2023 19:30:13 06/18/20 23 06/18/2023 COMPR EHENS ALLEGRA METAB OLIC PANEL globulin 3.2 g/dL 2.6-4. 2 Not Available [facility] (Lab) [address] [place], [address], 06/18/2023 19:30:13 06/18/20 23 06/18/2023 COMPR EHENS ALLEGRA METAB OLIC PANEL A/G ratio 1.3 ratio 1.0-2. 0 Not Available [facility] (Lab) [address] [place], [address], 06/18/2023 19:30:13 06/18/20 23 06/18/2023 LIPID PANEL cholesterol 109 mg/dL 140-19 9 low NIH JORDAN NSUS RECOM MENDA TION FOR NEAL STERO L: ADULT CHILD LOW RISK: <200 <170 BORDE RLINE : <200- 239 ----- HIGH RISK: >240 >200 Not Available [facility] (Lab) [address] [place], [address], 06/18/2023 19:30:18 06/18/2006/18/2023 LIPID PANEL triglyceride s 46 mg/dL 0-150 NIH JORDAN NSUS REPOR T RECOM MENDA TION FOR TRIGL YCERI EDE: ADULT CHILD LOW RISK: <150 ----- BODER LINE: 150-1 99 ----- HIGH RISK: >200 ----- Not Available [facility] (Lab) [address] [place], [address], 06/18/2023 19:30:18 06/18/20 23 06/18/2023 LIPID PANEL HDL cholesterol 39 mg/dL 40- low Not Available [facility] (Lab) [address] [place], [address], 06/18/2023 19:30:18 06/18/20 23 06/18/2023 LIPID PANEL [...] WILL NOT BE REPOR TORY. Not Available [facility] (Lab) [address] [place], [address], 06/18/2023 19:30:18 06/18/2006/18/2023 APTT APTT 30.0 secon ds 23.4-3 1.4 PLEAS E NOTE NEW APTT REFER ENCE RANGE EFFEC TIVE 11/05 . Not Available [facility] (Lab) [address] [place], [address], 06/18/2023 19:31:28 06/18/2006/18/2023 PROTI ME W/INR protime 10.9 secon ds 9.5-11 .5 Not Available [facility] (Lab) [address] [place], [address], 06/18/2023 19:31:34 06/18/20 23 06/18/2023 PROTI ME [...] HOSPH OLIPI D SYNDR OME. Not Available [facility] (Lab) [address] [place], [address], 06/18/2023 19:31:34 06/18/20 23 06/18/2023 TSH thyroid-stim ulating hormone 0.873 uIU/m L 0.465- 4.680 Not Available [facility] (Lab) [address] [place], [address], 06/18/2023 19:58:13 01/18/20 23 01/17/2023 XR, finge r(s), 2 or more view No observ ation record ed. [address] [place], [address], 01/18/2023 10:29:18 05/26/20 23 05/26/2023 XR, cervi erika spine No observ ation record ed. [email or web address] [facility] [address], [place], [address], 05/30/2023 09:32:47 11/14/20 23 11/13/2023 XR, foot, [...] Details Recorded Time Otalgia of left ear 6063338927 Completed 202105/27/2023 Rosalind modi RMA null, [place] [facility] 3 15:08:50 Pain of bilateral hands 99741876392 825266 Completed 202105/27/2023 Rosalind modi RMA null, [place] [facility] 3 15:08:48 Laborator y test result abnormal 120065035 Active 2021 Not Available [facility] 3 19:46:25 Lupus erythemat osus 031094541 Active 2021 Not Available [facility] 3 19:46:25 Headache 98089089 Completed 202105/15/2022 Not Available [facility] 3 19:46:25 Migraine 65291935 Active 2021 Not Available [facility] 3 19:46:25 Celiac disease 680052102 Active 2020 Not Available [facility] 3 19:46:25 Obesity 089147949 Active 2020 Not Available [facility] 3 19:46:25 Nausea 572792836 Completed 202105/15/2022 Not Available [facility] 3 19:46:25 Aphthous ulcer of mouth 110981733 Completed 202105/15/2022 Not Available [facility] 3 19:46:26 Acute urinary tract infection 414830388 Completed 202105/15/2022 Rosalind modi RMA null, [place] [facility] 3 15:08:38 Pain of right knee joint 96498259322 4100 Active 2022 Not Available [facility] 3 19:46:26 Hip pain 85759532 Completed 202105/15/2022 Not Available [facility] 3 19:46:26 Upper respirato ry infection 92969264 Active 2021 Not Available [facility] 3 19:46:26 Alopecia 35677568 Active 2021 Not Available [facility] 3 19:46:26 Smoker 79905675 Active 2020 Not Available [facility] 3 19:46:26 13722261 Completed 201812/17/2019 Not Available [facility] 3 19:46:26 Hyperglyc emia 20781378 Active 2020 Not Available [facility] 3 19:46:26 COVID-19 427325400 Completed 202105/27/2023 Rosalind modi RMA null, [place] [facility] 3 15:08:41 Injury of finger 24796978 Active 2022 Sarah Cabrera CMA null, [place] [facility] 3 10:30:18 Pain in right hand 97125421841 9109 Completed 202205/27/2023 Rosalind modi RMA null, [place] [facility] 3 15:08:45 Mass of hand 101887739 Active 2022 Arvind Guevara MD [address], [address], [place], [address] , [facility] 3 09:51:43 Acute urinary tract infection 185146997 Completed 202205/27/2023 Rosalind modi RMA null, [place] [facility] 3 15:08:38 Neck pain 55662987 Active 2022 Rashaun Green MD [address], [address], [place], [address] , [facility] 3 15:13:57 Hyperlipi demia 35854333 Active 2022 Rashaun Green MD [address], [address], [place], [address] , [place] [facility] [place] [facility] 3 15:51:16 Multiple bruising 733107265 Active 2022 Rashaun Green MD [address], [address], [place], [address] , [place] [facility] 3 15:51:39 Easy bruising 584877643 Active 2022 Rashaun Green MD [address], [address], [place], [address] , [place] [facility] 3 15:51:58 Weight loss 54355382 Active 2022 Rashanu Green MD [address], [address], [place], [address] , [facility] 3 15:52:46 Hypocalce ashleigh 4061442 Active 2022 Rashaun Green MD [address], [address], [place], [address] , [facility] 3 10:12:38 Cough 15017977 Active 2022 Rama Irene LPN null, [place] [facility] [place] [facility] 3 13:05:48 Pain of right shoulder joint 46896530102 893670 Active 2023 KELI Meyers null, [place] [facility] 4 12:07:44 Right rotator cuff strain Active 2023 RENALDO Washburn [address], [address], [place], [address] , [place] [facility] 4 12:52:20 Contusion of right shoulder 41654620281 637776 Active 2023 RENALDO Washburn [address], [address], [place], [address] , [place] [facility] [place] [facility] 4 12:52:27 Notes:Some problems listed i n Documents: #[id number], #[id number] could not be added to this patient's chart. Please review these documents and add these problems to the patient's chart manually as needed. Problem Notes None recorded. Procedures Surgical History Date Name Laterality Status Provider Name and Address Organization Details Recorded Time 03/21/20 MYSQL DBA Surgery completed Not Available [facility] 01/17/20 19:45:31 03/13/20 endometrial biopsy completed Not Available [facility] 01/16/2023 19:45:31 03/08/20 Date of Last Pap Smear completed Not Available [facility] 01/16/2023 19:45:30 04/12/20 laparoscopic salpingectomy completed Not Available [facility] 01/16/2023 19:45:31 03/18/20 MYSQL DBA Surgery completed Not Available [facility] 01/17/20 19:45:31 Eye Surgery completed Not Available [facility] 01/16/2023 19:45:31 Ankle arthroscopy/surge ry completed Not Available [facility] 01/16/2023 19:45:31 Imaging Results Imaging Date Name Status LastModified by Organiz ation Details LastModified Time 01/17/2023 XR, finger(s), 2 or more view completed [address] [place], [address], 01/18/2023 10:29:18 05/26/2023 XR, cervical spine completed [email or web address] [address], [address], 05/30/2023 09:32:47 11/13/2023 XR, foot, 3 or [...] Name and Address Organization Details Recorded Time 06425 oxybutyni n medicatio n anaphylax is Not available Not available 01/16/2023 62767 RxNorm Not Available [facility] 19:47:43 74282 morphine medicatio n anaphylax is Not available Not available 01/16/2023 7052 RxNorm Not Available [facility] 3 19:47:43 31433 Iodinated contrast media (substanc e) medicatio n rash Not available Not available 01/16/2023 79831 2004 SNOMED Not Available [facility] 3 19:47:43 98180 fluconazo le medicatio n swelling Not available Not available 01/16/2023 4450 RxNorm Not Available [facility] 3 19:47:43 13922 hydrocodo ne Not available rash severe Not available 01/16/2023 5489 RxNorm Not Available [facility] 3 19:47:43 Medications Name Sig Start Date [...] Not Available prednisone 10 mg tablet take [id number], 1d4ngxj, 5s1jgno active Not Available Not Available No t [...] mg by injection route. 2023 active [facility]: 0003- 0494- 20 Not Available Not Available [...] Updated DateTime 01/22/2023 166.37 cm 36.1 kg/m2 04699.32 g Mary Jane LOPEZ - [facility] [employer] 01/22/2023 09:26:14 Date Recorded Body height Body mass index (BMI) Body weight Body temperature Heart rate Oxygen saturation Oxygen saturation in Arterial blood by Pulse oximetry Systolic blood pressure Diastolic blood pressure Provider Name and Address Organization Details Last Updated DateTime 3 166.37 cm 35.2 kg/m2 39224.3 6 g 97.7 [degF] 110 /min 98 % 98 % 126 mm[Hg] 72 mm[Hg] Rosalind rendon [facility] [employer] [facility] 3 15:05:11 Date Recorded Body height Body mass index (BMI) Body weight Body temperature Heart rate Oxygen saturation Oxygen saturation in Arterial blood by Pulse oximetry Systolic blood pressure Diastolic blood pressure Provider Name and Address Organization Details Last Updated DateTime 3 166.37 cm 34.4 kg/m2 13336.4 g 98.1 [degF] 98 /min 98 % 98 % 112 mm[Hg] 74 mm[Hg] Sarah Cabrera [facility] [employer] [facility] 3 15:36:03 Date Recorded Body height Body mass index (BMI) Body weight Heart rate Oxygen saturation Oxygen saturation in Arterial blood by Pulse oximetry Systolic blood pressure Diastolic blood pressure Provider Name and Address Organization Details Last Updated DateTime 3 166.37 cm 32.4 kg/m2 10783.2 9 g 101 /min 98 % 98 % 124 mm[Hg] 80 mm[Hg] Rosalind rendon [facility] [employer] [facility] 3 09:55:33 Date Recorded Body height Body mass index (BMI) Body weight Provider Name and Address Organization Details Last Updated DateTime 04/27/2024 166.37 cm 31.5 kg/m2 62162.74 g Selene Ying [facility] [employer] [facility] 04/27/2024 12:04:35 Social History Question Answer Notes LastModified by Organizat ion Details LastModified Time Tobacco Smoking Status Current Every Day Smoker Not Available [employer] 01/16/2023 19:45:22 What Is Your Level Of Alcohol Consumption? Occasional [id number] Information not available 01/16/2023 What Is Your Level Of Caffeine Consumption? Moderate [id number] Information not available 01/16/2023 In The 14 Days Before Symptom Onset, Have You Had Close Contact With A Laboratory-confir med COVID-19 While That Case Was Ill? No [id number] Information not available 01/16/2023 In The 14 Days Before Symptom Onset, Have You Had Close Contact With A Person Who Is Under Investigation For COVID-19 While That Person Was Ill? No [id number] Information not available 01/16/2023 Do You Or Have You Ever Used E-cigarettes Or Vape? 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 16 [id number] Information not available 01/16/2023 How Much Tobacco Do You Smoke? 0.5 PPD [id number] Information not available 01/16/2023 Sex: Unknown Functional Status Question Answer Note LastModified by Organizat ion Details LastModified Time What is your exercise level? Occasional [id number] Information not available 01/16/2023 Mental Status None recorded. Family History Relationship Description Onset Age of this Age Resolved Age Notes LastModified by Organization Details LastModified Time Mother Hypothyroidi sm [email or web address] Not available 2023 11:46:43 Mother Essential hypertension [email or web address] Not available 08/2024 11:46:43 Mother Depressive disorder [id number] Not available 01/16/2023 19:45:32 Maternal Grandmother Diabetes mellitus [id number] Not available 01/16/2023 19:45:32 Medical History Condition Response HERPES Y ANXIETY DISORDER Gynecological History Statement/Question Response Abnormal Pap Y Flow Heavy Date of LMP 08/01/2021 Duration of Flow (days) 6 Date of Last Pap Smear 03/08/2021 Current Control Method Tubal Ligat ion Age at Menarche 11 Breast Problems bar helper Obstetrics History GPAL:G 2 P 2 0 0 2 Type Value Full Term 2 Living 2 Total 2 Past Encounters Encounter ID Performer Location Encounter Start Date Encounter Closed Date Diagnosis/Indication Diagnosis SNOMED-CT Code Diagnosis ICD10 Code Diagnosis Note [id number] _TRINA_M IGRATION_ DEFAULT_1 _1 , 03/08/2021 00:00:00 03/08/2021 12:43:05 [id number] _GENNAROENA_M IGRATION_ DEFAULT_1 _1 , 03/13/2021 00:00:00 03/13/2021 12:12:10 [id number] _ATHENA_M IGRATION_ DEFAULT_1 _1 , 04/03/2021 00:00:00 04/03/2021 12:28:34 [id number] _ATHENA_M IGRATION_ DEFAULT_1 _1 , 05/18/2021 00:00:00 05/18/2021 17:49:13 [id number] _ATHENA_M IGRATION_ DEFAULT_1 _1 , 06/01/2021 00:00:00 06/01/2021 12:40:10 [id number] [facility] [address] [facility] [address] [place] [address] 06/27/2021 00:00:00 06/27/2021 17:35:55 [id number] _ATHENA_M IGRATION_ DEFAULT_1 _1 , 08/24/2021 00:00:00 08/24/2021 17:08:35 [id number] [facility] [address] [address] 10/23/2021 00:00:00 10/23/2021 16:57:17 [id number] [facility] [address] [address] 12/13/2021 00:00:00 12/13/2021 14:53:31 [id number] [facility] [address] [address] 01/09/2022 00:00:00 01/09/2022 14:30:58 [id number] [facility] [address] [address] 02/16/2022 00:00:00 02/16/2022 11:35:46 [id number] [facility] [address] [address] 05/15/2022 00:00:00 05/15/2022 15:38:05 [id number] [facility] [address] [place] [address] 09/27/2022 00:00:00 09/27/2022 14:52:07 [id number] [facility] [address] [place] [address] 10/15/2022 00:00:00 10/15/2022 12:49:17 [id number] [facility] [address] [place] [address] 12/27/2022 00:00:00 12/27/2022 10:41:25 [id number] Arvind Guevara MD [facility] [address] [address] 01/22/2023 09:04:45 01/22/2023 10:42:09 Pain in right hand [id number] 71318 M79.641 Mass of hand 055818231 R 22.31 4th finger [id number] Rashaun Green MD [facility] Med [address] [place] [address] 05/27/2023 15:00:14 05/27/2023 15:23:07 Neck pain 25057459 M54.2 ice pack, stretching , ibuprofen [id number] Rashaun Green MD [facility] [address] [address] 06/18/2023 15:30:53 06/18/2023 15:58:14 Hyperlipidemia 80164540 E78.5 Easy bruising 862971611 R58 Weight loss 94838940 R63 .4 watch [id number] Rashaun Green MD [facility] Internal Med [address] [address] 09/06/2023 09:48:33 09/06/2023 10:27:38 Hypocalcemia 5119675 E83.51 labs, not on calcium [id number] RENALDO Washburn [facility] [place] [address] [place] [address] 04/27/2024 11:44:30 04/27/2024 12:44:23 Pain of right shoulder joint [id number] 2247648 M25.511 Right rota tor cuff strain 5320056650 2607544 S46.011A Contusion of right shoulder 1316223162 4734991 S40.011A Health Concerns Section Related Observation LastModified by Organization Detai ls LastModified Time None Recorded Concern Status LastModified by Organization Details LastModified Time None Recorded Advance Directives Directive None Recorded Payers Encounter Date Sequence Insurance Name Policy Number Policy Agrawal Covered Member ID Agrawal Member ID Guarantor Name 01/22/2023 1 [facility] ON OR AFTER 05/18/21 (MEDICAID REPLACEMENT - HMO) Sabina Chandler [id number] Sabina Chandler 05/27/2023 1 [facility] ON OR AFTER 05/18/21 (MEDICAID REPLACEMENT - HMO) Sabina Chandler [id number] Sabina Chandler 06/18/2023 1 [facility] ON OR AFTER 05/18/21 (MEDICAID REPLACEMENT - HMO) Sabina Chandler [id number] Sabina Chandler 09/06/2023 1 [facility] ON OR AFTER 05/18/21 (MEDICAID REPLACEMENT - HMO) Sabina Chandler [id number] Sabina Chandler 04/27/2024 [employer] Sabina Chandler Notes Date Note Type Note Provider Name and Address Organization Details Recorded Time 01/22/2023 text/html Patient presents mass right 4th finger. Tender to palpation has pain to manipulation masses in the distal phalanx. She had x-rays done which demonstrate the lytic area. Arvind Guevara MD [address] [place] [address], [place] [address], [place], [address], [facility] [employer] [facility] [employer] 01/22/2023 09:52:05 05/27/2023 text/html She is here [...] on movementsno radiation Rashaun Green MD [address], [place], [address], [place] 05/27/2023 15:21:00 06/18/2023 text/html Pt is here [...] Green MD [address], [place], [address], [place] 06/18/2023 15:53:50 09/06/2023 text/html Went to [facility] a month ago and was told she had low calcium.She has been having Adi horses all over and would like her labs checked againshe went to ER for abd painHer labs were nl 2 months ago Rashaun Green MD [address], [place], [address], [place] 09/06/2023 10:13:35 04/27/2024 text/html patient is a [...] today with the patient. RENALDO Washburn [address] [facility] [place], [facility] [address], [place], [address], [place] [facility] [employer] 04/27/2024 12:52:56 OBGyn Episode No OBEpisode recorded.
--- OUTSIDE RECORDS SUMMARY | 2025-03-05 09:00 | XMS_ITS | Encounter Summary ---
Author Organization [facility] Address [address] [place] [address] Phone Care Team Providers Care It Disaster Recovery Manager Name Role Phone Kotsas Washington MD Primary Care Provider [phone] Kostas Washington MD Primary Care Provider [phone] Eric Hooper MD Unavailable [phone] Reason for Referral * Radiology Services (Routine) - Closed Specialty Diagnoses / Procedures Referred By Contac t Referred To Contact Radiology Diagnoses Pre-op testing Procedures EKG 12 LEAD Juan Mancilla MD Referral ID Status Reason Start Date Expiration Date Visits Re quested Visits Authorized [id number] Closed 06/06/2021 1 1 Encounter Details Date Type Department Care Team (Latest Contact Info) Description 06/06/2021 Transcribe Orders [facility] Preop/Pacu II 1 [place] [id number] Juan Mancilla MD Pre-op testing (Primary Dx) [...] on file 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 Gender Identity Not on file Sexual Orientation [...] QTC CALCULATION 445 ms EXTERNAL EKG P [place] 55 degrees EXTERNAL EKG R [place] 90 degrees EXTERNAL EKG T [place] 22 degrees EXTERNAL EKG 06/07/2021 9:18 AM CDT Impressions EXTERNAL EKG - 06/08/2021 9:13 AM CDT Sinus tachycardia Rightward axis Comparison Summary: No serial comparison made Summary: Borderline ECG Confirmed by Osei Norris [id number] on 06/08/2021 9:13:35 AM Narrative Procedure Note Leslie Franz MD - 06/08/2021 IMPRESSION: Sinus tachycardia Rightward axis Comparison Summary: No serial comparison made Summary: Borderline ECG Confirmed by Osei Norris [id number] on 06/08/2021 9:13:35 AM [facility] Charo ROJAS IMG ECG ORDERABLES Final Result EXTERNAL EKG * SARS-COV-2 BY MOLECULAR (06/07/2021 9:06 AM CDT) SARSCOV2 NOT DETECTED (Referenc e Range for this test is Not Detected) [facility] LUC[facility] ID NOW 06/07/2021 9:29 AM CDT [facility] Comment:This test was perfor med by a MOLECULAR, NON-PCR method Other NASOPHARYNGEAL STRUCTURE / Unknown Non-Phlebotomy Collection / Unknown 06/07/2021 9:06 AM CDT 06/07/2021 9:11 AM CDT Narrative [facility] - 06/07/2021 9:29 AM CDT This [...] information for Clinicians can be found at: https://www.fda.gov/media/022784/download Additional information for Patients can be found at: https://www.fda.gov/media/041531/download Juan Mancilla MD MICROBIOLOGY - GENERAL ORDERABLE S Final Result [facility] [address] [place] [address] documented in this encounter Visit Diagnoses Diagnosis Pre-op testing- Primary Preoperative examination, unspecified Pre-op testing Preoperative examination, unspecified documented in this encounter Care Teams It Disaster Recovery Manager Relationship Specialty Start Date End Date Kostas Washington MD PCP - General Internal Medicine 11/10/18 06/06/21 Kostas Washington MD PCP - General Internal Medicine 06/07/21 Eric Hopoer MD Consulting Physician Gastroenterology 10/29/23 02/04/25 documented as of this encounter
--- OUTSIDE RECORDS SUMMARY | 2025-03-05 09:00 | XMS_ITS | Encounter Summary ---
Author Organization [facility] Address [address] 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 Gender Identity Not on file Sexual [...] Dept 12/31/23 Office Visit Linda Sanford APRN, [facility] Neurology [address] Showing recent visits within past 365 days and meeting all other requirements Future Appointments Date Type Provider Dept 06/11/24 Appointment Linda Sanford APRN, [facility] Neurology [address] Showing future appointments within next 90 days and meeting all other requirements documented in this encounter Plan of Treatment Not on file documented as of this encounter Visit Diagnoses Diagnosis Chronic migraine with aura without status migrainosus, not intractable documented in this encounter Care Teams Grocery Clerk Checking Relationship Specialty Start Date End Date Kostas Washington MD PCP - General Internal Medicine 06/07/21 Eric Hooper MD Consulting Physician Gastroenterology 10/29/23 02/04/25 documented as of this encounter
--- OUTSIDE RECORDS SUMMARY | 2025-03-05 09:00 | XMS_ITS | Referral Summary ---
Author Organization [facility] Address [address] [place] [address] Care Team Providers Care Vice President Residential Solar Sales Name Role Phone Kostas Washington MD Primary Care Provider [phone] Allergies Active Allergy Reactions Criticality Noted Date [...] on file Legal Sex Female 6:12 AM COLOR LABORATORY TECHNICIAN Gender Identity Female 02/23/2022 10:20 PM CDT Sexual Orientation Straight 02/23/2022 10 :20 PM CDT Last Filed Vital Signs Vital Sign Reading Time Taken Comments Blood Pressure 122/85 11/30/2024 3:18 PM COLOR LABORATORY TECHNICIAN Pulse 92 11/30/2024 3:18 PM COLOR LABORATORY TECHNICIAN Temperature 37 C (98.6 F) 11/30/2024 3:18 PM COLOR LABORATORY TECHNICIAN Respiratory Rate 18 11/30/2024 3:18 PM COLOR LABORATORY TECHNICIAN Oxygen Saturation 98% 11/30/2024 3:18 PM COLOR LABORATORY TECHNICIAN Inhaled Oxygen Concentration - - Weight 93.2 kg (205 lb 6.4 oz) 11/30/2024 3:18 P M COLOR LABORATORY TECHNICIAN Height 165.1 cm (5' 5 ) 08/09/2023 [...] 20. Hep B core IgM Nonreactive Nonreactive [facility] Comment: Interpretive Data If HepB Core [...] - Final [facility] One [facility] [place] [address] from Last 3 Months or Most Recently Relevant to Health Maintenance Insurance [facility] [place] [address] Care Teams Vice President Residential Solar Sales Relationship Specialty Start Date End Date Kostas Washington MD PCP - General Internal Medicine 02/14/22
--- OUTSIDE RECORDS SUMMARY | 2025-03-05 09:00 | XMS_ITS | Continuity of Care Document ---
Author Organization [facility] Address [address] [place] [address] Phone Care Team Providers Care Nurse Advocate Name Role Phone Alvaro Soriano DO Unavailable Unavailable Advance Directives Directive Yes / No Effective Date File Name No Information Encounters Encounter Description Practice Location Reason(s) For Visit Diagnoses Date Provider Providers Copied on Encounter [facility], [address], [place], [place], [id number], tel:[phone] [facility] [place] No Information Bo Abbott. [address] [place], [address], . tel: [phone] Family History Family Member Type Diagnosis Age At Onset No Information Payers Payer name Insurance type Covered constitution party ID Authoriza tion(s) Medicaid [facility] [id number] Social History Type Description Quantity Date Captured [...]
--- OUTSIDE RECORDS SUMMARY | 2025-03-05 09:00 | XMS_ITS | Clinical Summary ---
Author Organization [facility] Address [address] [place] [address] Care Team Providers Care Hair Clipper Power Name Role Phone Kostas Washington MD Primary Care Provider [phone] Allergies Active Allergy Reactions Criticality Noted Date [...] on file Legal Sex Female 6:12 AM MILLWORK ESTIMATOR Gender Identity Female 02/23/2022 10:20 PM CDT Sexual Orientation Straight 02/23/2022 10 :20 PM CDT Obstetrics History Last Filed Vital Signs Vital Sign Reading Time Taken Comments Blood Pressure 122/85 11/30/2024 3:18 PM MILLWORK ESTIMATOR Pulse 92 11/30/2024 3:18 PM MILLWORK ESTIMATOR Temperature 37 C (98.6 F) 11/30/2024 3:18 PM MILLWORK ESTIMATOR Respiratory Rate 18 11/30/2024 3:18 PM MILLWORK ESTIMATOR Oxygen Saturation 98% 11/30/2024 3:18 PM MILLWORK ESTIMATOR Inhaled Oxygen Concentration - - Weight 93.2 kg (205 lb 6.4 oz) 11/30/2024 3:18 P M MILLWORK ESTIMATOR Height 165.1 cm (5' 5 ) 08/09/2023 [...] on 20. Hep C Ab Nonreactive Nonreactive [facility] Comment:Antibodies to HCV no t detected. Does NOT exclude the possibility of recent exposure to HCV. HepBsAg Nonreactive Nonreactive [facility] Blood 02/14/2022 9:10 AM CDT 02/14/2022 11:12 AM CDT Jeannine Cheema NP LAB MICROBIOLOGY - GENERAL ORDERABLES Edited Result - Final [facility] One [facility] [place] [address] from Last 3 Months or Most Recently Relevant to Health Maintenance Insurance [facility] Care Teams Hair Clipper Power Relationship Specialty Start Date End Date Kostas Washington MD PCP - General Internal Medicine 02/14/22
--- OUTSIDE RECORDS SUMMARY | 2025-03-05 09:00 | XMS_ITS | Clinical Summary ---
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 Gender Identity Not on file Sexual Orientation Not on file Last Filed Vital Signs Vital Sign Reading Time Taken Comments Blood Pressure 103/56 11/19/2024 4:15 AM HOME DEPOT REP Pulse 59 11/19/2024 4:15 AM HOME DEPOT REP Temperature 36.9 C (98.5 F) 11/19/2024 1:28 AM HOME DEPOT REP Respiratory Rate 19 11/19/2024 1:28 AM HOME DEPOT REP Oxygen Saturation 100% 11/19/2024 4:15 AM HOME DEPOT REP Inhaled Oxygen Concentration - - Weight 91.2 kg (201 lb 1 oz) 11/19/2024 1:28 AM HOME DEPOT REP Height 165.1 cm (5' 5 ) 11/19/2024 1:28 AM HOME DEPOT REP Body Mass Index 33.46 11/19/2024 1:28 AM HOME DEPOT REP Plan of Treatment Health Maintenance Due Date [...] this topic Medical Devices Implanted Type Area Shoes Salesperson Device Identifier Shelf Expiration Date Model / Serial / Lot Stent Ureteral 6fr 2.1fr 26cm 2 Pigtail Curve 2 Durometer Taper Tip Loprfl Graduated Polaris Ultra - [id number] Implanted:Qty: 1 on 06/09/2021 by Juan Mancilla MD at [facility] IMPLANT [employer] 03/30/2024 [id number] / [id number] / [id number] Description:STRING OFF Insurance MEDICAID [employer] Care Teams Under Presser Relationship Specialty Start Date End Date Kostas Washington MD PCP - General Internal Medicine 06/07/21
--- OUTSIDE RECORDS SUMMARY | 2025-03-05 09:00 | XMS_ITS ---
Author Organization [facility] Address [address] [place] [address] Phone Care Team Providers Care Field Organizer Name Role Phone Kostas Washington MD Primary Care Provider [facility] Status:Enrolled (Active) Start date:10/22/2024 Enrollment date:10/22/2024 Related social drivers of health:Intimate Partner Violence, Social Connections, Alcohol Use, Tobacco Use, Financial Resource Strain,Depression, Stress, Physical Activity, Food Insecurity, Transportation Needs, Housing Stability, Utilities Continued Care and Services Coordination
--- OUTSIDE RECORDS SUMMARY | 2025-03-05 09:00 | XMS_ITS | Clinical Summary ---
Author Organization [facility] Address [address] [place] [address] Care Team Providers Care Instructor Of Education Name Role Phone [facility] ([facility]) Primary Care Provi nya Source Comments [facility] hospital center Affiliates and Associated Physician Practices is amultiple site organization consisting of ambulatory clinics and hospital sitesin [place], [place], [place] and [place]. This disclosure is being madepursuant to the Care Everywhere program and may not contain all information available regarding this patient. Last updated 18.[facility] Allergies Active Allergy Reactions Criticality Noted Date [...] on file Legal Sex Female 5:36 AM MANAGER STRATEGIC ALLIANCES Gender Identity Not on file Sexual Orientation [...] patient's age to complete this topic Insurance [facility] [place]ID [place] [facility] Advance Directives * Full Code (Latest Code Status on File) Date Activated Date Inactivated Comments 08/22/2016 6:42 PM 08/26/2016 1:13 PM Care Teams Instructor Of Education Relationship Specialty Start Date End Date [facility] ([facility]) [address] [place] [address] PCP - General 01/26/19
== END 2025-03-04 07:01 | disposition home or self-care (01) ==
LOC: ANHLAB 03-05 08:55
PROVIDERS: PCP Internal Medicine; Visit Provider Plastic Surgery
DX: M85.5 Aneurysmal bone cyst (principal)
CPT/HCPCS: 88305

== ENCOUNTER 2025-03-04 08:09 | Day surgery (SDC) | payer OTHER, SELFPAY ==
[2025-02-11 12:53] VITALS: BMI 34.9
--- NOTE | ~2025-03-04 | XR_ITS ---
INTRAOPERATIVE FLUOROSCOPY: CLINICAL HISTORY: 29 years old Female; POSSIBLE RIGHT RING FINGER DISTAL PHALANX PINNING PROCEDURE COMMENTS: Limited intraoperative fluoroscopy of the right fourth digit was performed. CUMULATIVE DOSE: .07 mGy FLUOROSCOPY TIME: 13 seconds FINDINGS/IMPRESSION: Please refer to operative note for further details. Reviewed, dictated and finalized at location A.
--- NOTE | 2025-03-04 06:51 | WPDHPUPDATE1 ---
History and Physical Update Update Date/Time: 03/04/25 06:51 Patient seen and examined in pre-operative holding area. No interval change in medical history or symptoms. Patient recalls previous discussion of benefits and alternatives to procedure. Continues to desire to proceed with right ring finger bone cyst curettage, grafting and possible k-wire placement . Reviewed procedure, post-op expectations and risks including but not limited to bleeding, infection, injury to tendon/nerve/vessel, decreased hand function, stiffness, RSD, no change or worsening of symptoms, fracture, malunion, nonunion, recurrence. I discussed the possible use of assistants and their participation in the case. Patient stated understanding and signed the consent form wishing to proceed.
--- NOTE | 2025-03-04 06:51 | W.PM.PROC2 ---
Procedure Note - Detailed Date of Procedure 03/04/25 Pre-op Diagnosis right ring finger bone cyst Post-op Diagnosis Same Procedure Performed curettage and grafting right ring finger distal phalanx bone cyst and fixation distal phalanx fracture Surgeon Americo Johnson MD Associate Sales Representative ashlye haines pa-c Anesthesia General Description of Procedure INFORMED CONSENT: The patient was seen and examined and marked in the pre-op area.? The patient signed the consent form. PROCEDURE IN DETAIL:The patient taken back to OR on the stretcher in supine position. Time out performed with anesthesia, surgeon and staff agreeing on patient's name site and surgery to be performed SCDs were placed on the lower extremities and inflated. A tourniquet was placed on {right} upper extremity and antibiotics given IV After anesthesia administered sedation I injected {4}cc 1%lido and 0.5% marcaine plain for digital block in the palm The?{right upper extremity}?was prepped and draped in sterile fashion the??{right upper extremity} was? exsanguinated with Esmarch bandage and tourniquet inflated to 250mmHg I proceeded with making an H-style incision over the right ring finger DIP joint through skin and dermis with a 15 blade scalpel. Skin flap was elevated distally exposing the extensor tendon and distal phalanx. The old fracture line was partially visualized and while live fluoro seemed to denote stability this did not appear fully healed on direct visualization. Using a 0.045 K-wire I made several holes to create an opening in the dorsal cortex on the ulnar side of the distal phalanx. Through this opening I was able to insert a curette and proceeded with curettage of this cystic lesion in the distal phalanx. I irrigated with peroxide first then with normal saline. Cautery was used to cauterize the interior of the bone cyst cavity. Arthrex Allosync DBM was then injected and packed into the cavity. A 0.045 k-wire was placed in retrograde fashion across the dipjoint and verified on multiple views of fluoro. I irrigated with normal saline and closed skin with 4-0 chromic suture. The extensor tendon insertion remained intactduring procedure wihtout extensor lag. A dressing of xeroform , 4x4, leidy, and an ulnar gutter splint was applied for patient safety, security, and comfort and secured with an bella bandage after the tourniquet was let down noting the hand was warm and well perfused. The patient was then awaken from anesthesia and transferred to the recovery room in stable condition.? Complications - none EBL- 0cc Disposition - home in stable conditions Ashley Haines PA-C was essential for postitioning, retraction, fluoro, closure and dressing placement [facility] Billing Surgery - Charge Forward: Surgery Billing ([id number] same for ashley adding modifier )
--- OUTSIDE RECORDS SUMMARY | 2025-03-04 08:49 | XMS_ITS | Continuity of Care Document ---
Author Organization [facility] Address [address] [place] [address] Phone Care Team Providers Care Check Out Clerk Name Role Phone Alvaro Soriano DO Unavailable Unavailable Advance Directives Directive Yes / No Effective Date File Name No Information Encounters Encounter Description Practice Location Reason(s) For Visit Diagnoses Date Provider Providers Copied on Encounter [facility], [address], [place], [place], [id number], tel:[phone] [facility] [place] No Information Bo Abbott. [address] [place], [address], . tel: [phone] Family History Family Member Type Diagnosis Age At Onset No Information Payers Payer name Insurance type Covered libertarian ID Authoriza tion(s) Medicaid [facility] [id number] Social History Type Description Quantity Date Captured [...]
--- OUTSIDE RECORDS SUMMARY | 2025-03-04 08:49 | XMS_ITS ---
Author Organization [facility] Address [address] [place] [address] Phone Care Team Providers Care Entertainment & Media Correspondent Name Role Phone Kostas Washington MD Primary Care Provider [phone] [facility] Status:Enrolled (Active) Start date:10/22/2024 Enrollment date:10/22/2024 Related social drivers of health:Intimate Partner Violence, Social Connections, Alcohol Use, Tobacco Use, Financial Resource Strain,Depression, Stress, Physical Activity, Food Insecurity, Transportation Needs, Housing Stability, Utilities Continued Care and Services Coordination
--- OUTSIDE RECORDS SUMMARY | 2025-03-04 08:50 | XMS_ITS | Clinical Summary ---
Author Organization [facility] Address [address] [place] [address] Phone Care Team Providers Care Production Posting Clerk Name Role Phone Kostas Washington MD Primary Care Provider [phone] Allergies Active Allergy Reactions Criticality Noted Date Comments Fluconazole Swelling High 11/26/2022 Oxybutynin Swelling 07/05/2021 SWOLLEN THROAT Iodinated Contrast Media Itching,Unknown 2017 Morphine Anaphylaxis 11/10/2018 Sulfa Antibiotics Unknown 11/10/2018 Medications Acetaminophen (TYLENOL PO) Take by mouth as needed. Active ondansetron (ZOFRAN-ODT) 4 MG TABLET DISPERSIBLE Take 1 Tablet by mouth every 6 hours as needed for Nausea - 1st line. 12 Tablet 3 Active Additional Information Patient not taking.Reported on 11/19/2023 ALBUTEROL IN take by inhalation. Active albuterol 108 (90 Base) MCG/ACT Aerosol Solution take 2 Puffs by inhalation every 4 hours as needed. Active methylPREDNISolo ne (MEDROL DOSPACK) 4 MG Tablet Therapy PackIndications: Chronic migraine with aura without status migrainosus, not intractable Take 1 Tablet by mouth See Admin Instructions. 6 p.o day one, 5 p.o. Day two, 4 p.o. Day three, 3 p.o. Day 4, 2 p.o. Day 5, 1 p.o. Day 6 21 Tablet 4 Active naproxen (NAPROSYN) 500 MG Tablet Take 1 Tablet by mouth 2 times daily as needed for Moderate or more severe pain. 20 Tablet 4 Active SUMAtriptan (IMITREX) 25 MG TabletIndication s:Chronic migraine with aura without status migrainosus, not intractable Take 1 Tablet by mouth once as needed for Migraine or Headaches. Use as directed. May repeat dose in 2 hours if headache recurs. 9 Tablet 2 4 Active amitriptyline (ELAVIL) 10 MG TabletIndication s:Chronic migraine with aura without status migrainosus, not intractable Take 1 Tablet by mouth nightly. 90 Tablet 4 Active Active Problems Problem Noted Date Diagnosed Date Generalized abdominal pain 11/19/2023 NICO positive 11/19/2023 Immunizations Immunization Administration Dates Next Due Hepatitis A Vaccine,unspecified Formulation 10/18 Human Papillomavirus (HPV) V accine, Bivalent 10/30/2007 Influenza Vaccine, Quadrivalent, PF 08/24/2016 Influenza Vaccine,unspecified Formulation 2006 Meningococcal Vaccine, Unspe cified Formulation 10/30/2007 TDAP Vaccine 12/18/2019,05/23/2016,10/30/2007 Family History Medical History Relation Name Comments Chronic Obstructive Pulmonary Disease Father Diabetes Father Celiac Disease Mother Hypertension Mother Relation Name Status Comments Father Alive Mother Alive Social History Tobacco Use Types Packs/Day Years Used Date Smoking Tobacco: Every Day Cigarettes 2 10 Smokeless Tobacco: Never Tobacco Cessation:Ready to Q uit: Not Asked; Counseling Given: Not Answered Alcohol Use Standard Drinks/Week Comments Yes 0 (1 standard drink = 0.6 oz pur e alcohol) RARELY Sexually Active Control Partners Comments Yes Surgical TUBAL LIGATION Comments No Sex and Gender Information Value Date Recorded Sex Assigned at Not on file Legal Sex Female 7:21 PM ASTROCHEMIST Gender Identity Not on file Sexual Orientation Not on file Last Filed Vital Signs Vital Sign Reading Time Taken Comments Blood Pressure 103/56 11/19/2024 4:15 AM ASTROCHEMIST Pulse 59 11/19/2024 4:15 AM ASTROCHEMIST Temperature 36.9 C (98.5 F) 11/19/2024 1:28 AM ASTROCHEMIST Respiratory Rate 19 11/19/2024 1:28 AM ASTROCHEMIST Oxygen Saturation 100% 11/19/2024 4:15 AM ASTROCHEMIST Inhaled Oxygen Concentration - - Weight 91.2 kg (201 lb 1 oz) 11/19/2024 1:28 AM ASTROCHEMIST Height 165.1 cm (5' 5 ) 11/19/2024 1:28 AM ASTROCHEMIST Body Mass Index 33.46 11/19/2024 1:28 AM ASTROCHEMIST Plan of Treatment Health Maintenance Due Date Last Done Comments Hepatitis C Virus (HCV) Screening 1995 Hepatitis B Immunization (1 of 3 - 19+ 3-dose series) 2014 Pneumococcal Immunization Combined (1 of 2 - PCV) 2014 Pap Smear 2016 SARS-COV-2 Immunization ( - season) 2024 Influenza Immunization (Seas on Ended) 2025 08/24/2016, 10/30/2007 Td Immunization Every 10 Yea rs (Adults With 1 Tdap) 12/18/2029 12/18/2019, 05/23/2016, 10/30/2007 Respiratory Syncytial Virus (RSV) Immunization (Adult) (1 - 1-dose 75+ series) 2070 Human Papillomavirus (HPV) Immunization Discontinued 10/30/2007 Meningococcal Immunization (ACWY) Aged Out 10/30/2007 No longer eligible based on patient's age to complete this topic DTaP/Tdap/Td Immunization Discontinued 2019, 05/23/2016, 10/30/2007 Rotavirus Immunization Aged Out No lo nger eligible based on patient's age to complete this topic Medical Devices Implanted Type Area Forensic Toxicologist Device Identifier Shelf Expiration Date Model / Serial / Lot Stent Ureteral 6fr 2.1fr 26cm 2 Pigtail Curve 2 Durometer Taper Tip Loprfl Graduated [employer]aris Ultra - [id number] Implanted:Qty: 1 on 06/09/2021 by Juan Mancilla MD at [facility] IMPLANT [employer] 03/30/2024 [id number] / [id number] / [id number] Description:STRING OFF Insurance MEDICAID [employer] Care Teams Production Posting Clerk Relationship Specialty Start Date End Date Kostas Washington MD PCP - General Internal Medicine 06/07/21
--- OUTSIDE RECORDS SUMMARY | 2025-03-04 08:50 | XMS_ITS | Data Portability ---
Author Organization [place] [facility] [employer], Main Office Address [address] [place] [address] Care Team Providers Care Asp Net Developer Name Role Phone RASHAUN GREEN Primary Care Provider RASHAUN GREEN Referring Provider AMANDA HENDERSON [employer] Unavailable Assessment Encounter Date Assessment Date Assessment LastModified by Organization Details LastModified Time 01/22/2023 01/22/2023 Patient presents lytic mass distal 4th phalanx tender palpation has pain to manipulation she has got appears to be the start of an expansile lesion. I think this probably needs to be removed curetted I think it probably best done by hand surgeon I will ask Dr. Irene to see if he will take a look at this force and see what can be done. I have discussed this with the risks benefits limitations and alternatives in detail. [email or web address] Not available 01/22/2023 09:51:18 04/27/2024 04/27/2024 The patient has a contusion to the posterior superior portion of her shoulder as well as a rotator cuff strain right shoulder. We talked about treatment options today in detail we are going to get her started with a course of physical therapy to work on range of motion gentle strengthening I have advised her to get rid of the sling and start using it normally as much as she can so she does not develop a frozen shoulder. Currently she is on naproxen we are going to give her course of oral prednisone she will stop the naproxen while she has on the prednisone then resume naproxen 500 mg b.i.d. with food. We also talked about doing a shot of cortisone she wanted proceed therefore under sterile conditions I injected the patient's right shoulder subacromial space in the office with 4 cc of 0.5% Marcaine and 20 mg of Kenalog. Patient tolerated the procedure well. I will see her back in a month see how she is doing for now we will keep her on light duty at work no lifting over a couple of lb no repetitive motion with the right arm. If they can not accommodate her she will have to be off work until we see her back. If she needs anything else she will call she voiced understanding agrees above plan she will call for any further problems difficulties or questions. [email or web address] Not available 04/27/2024 12:51:31 Plan of Treatment Reminders Order Date Submit Date Provider Last Modified By Organization Details Last Modified Time Details Appointments None recorded. Lab CMP, serum or plasma [address] (Lab), [address] [place] [address], [id number], 3 12:35:55 CBC w/ auto diff 2022 023 [facility] (Lab), [address] [place] [address], [address], 3 19:16:03 PT/PTT, plasma 2022 023 [facility] (Lab), [address] [place] [address], [address], 3 00:19:18 CMP, serum or plasma 2022 023 [facility] (Lab), [address] [place] [address], [address], 3 19:30:13 TSH, serum or plasma 2022 023 [email or web address] Not available 19:58:13 lipid panel, serum 2022 023 [facility] (Lab), [address] [place] [address], [address], 3 19:30:18 Referral physical therapist referral - Please contact patient to schedule [email or web address] [facility], [address], [address], [place], [address], 13:25:35 Procedures injection/a spiration joint/bursa (PROC) 2023 024 [email or web address] In-Office Order, Internal Use Only DO Not Attach Compendium DO Not Attach Compendium, Do Not Delete/merge, [id number] 12:51:32 Surgeries None recorded. Imaging None recorded. Medication Orders Marcaine (PF) 0.5 % (5 mg/mL) injection solution 2023 024 [email or web address][id number], [address], [place], [place], [id number], 4 12:51:33 Kenalog 10 mg/mL suspension for injection [address] [facility]79438, [address], [place], [place], [id number], 4 12:51:32 prednisone 10 mg tablets in a dose pack 2023 024 TR[facility] #88029, [address], [place], [place], [id number], 4 12:51:42 ibuprofen 800 mg tablet 2022 023 [email or web address] [facility] #[id number], [address], [place], [place], [id number], 4 12:05:45 cyclobenzap rine 5 mg tablet 2022 023 [facility] #88532, [address], [place], [place], [id number], 4 12:05:14 Patient TargetsNo targets recorded. Patient InstructionsNo instructions recorded. Reason for Referral Physical Therapist Referral for Pain of right shoulder joint Please contact patient to schedule Referring Physician: Elton Foster, Orthopedic Surgery, Encounter Date: 04/27/2024 Results Created Date Observation Date Name Description Value Unit Range Abnormal Flag Note LastModifiedBy Organization Detail LastModifiedTime 06/18/2006/18/2023 CBC/C OMPLE TE BLD COUNT W/DIF F white blood cells 4.6 x10'3 /uL 4.2-10 .8 Not Available [facility] (Lab) [address] [place], [address], 06/18/2023 19:16:02 06/18/2006/18/2023 CBC/C OMPLE TE BLD COUNT W/DIF F red blood cells 4.28 x10'6 /uL 3.80-5 .20 Not Available [facility] (Lab) [address] [place], [address], 06/18/2023 19:16:02 06/18/2006/18/2023 CBC/C OMPLE TE BLD COUNT W/DIF F hemoglobin 13.0 g/dL 12.0-1 5.6 Not Available [facility] (Lab) [address] [place], [address], 06/18/2023 19:16:02 06/18/2006/18/2023 CBC/C OMPLE TE BLD COUNT W/DIF F hematocrit 39.6 % 35.7-4 5.7 Not Available [facility] (Lab) [address] [place], [address], 06/18/2023 19:16:02 06/18/2006/18/2023 CBC/C OMPLE TE BLD COUNT W/DIF F mean red cell volume 92.5 fL 82.0-9 9.0 Not Available [facility] (Lab) [address] [place], [address], 06/18/2023 19:16:02 06/18/20 23 06/18/2023 CBC/C OMPLE TE BLD COUNT W/DIF F mean red cell hemoglobin 30.4 pg 27.0-3 3.0 Not Available [facility] (Lab) [address] [place], [address], 06/18/2023 19:16:02 06/18/20 23 06/18/2023 CBC/C OMPLE TE BLD COUNT W/DIF F mean RBC HGB concentratio n 32.8 g/dL 31.0-3 6.0 Not Available [facility] (Lab) [address] [place], [address], 06/18/2023 19:16:02 06/18/2006/18/2023 CBC/C OMPLE TE BLD COUNT W/DIF F red cell distribution width 12.6 % 11.8-1 5.5 Not Available [facility] (Lab) [address] [place], [address], 06/18/2023 19:16:02 06/18/2006/18/2023 CBC/C OMPLE TE BLD COUNT W/DIF F platelets 190 x10'3 /uL 150-40 0 Not Available [facility] (Lab) [address] [place], [address], 06/18/2023 19:16:02 06/18/2006/18/2023 CBC/C OMPLE TE BLD COUNT W/DIF F mean platelet volume 12.6 fL 9.0-12 .4 high Not Available [facility] (Lab) [address] [place], [address], 06/18/2023 19:16:02 06/18/20 23 06/18/2023 CBC/C OMPLE TE BLD COUNT W/DIF F neutrophils 64.1 % 39.0-7 2.0 Not Available [facility] (Lab) [address] [place], [address], 06/18/2023 19:16:02 06/18/2006/18/2023 CBC/C OMPLE TE BLD COUNT W/DIF F lymphocytes 27.1 % 16.0-4 7.0 Not Available [facility] (Lab) [address] [place], [address], 06/18/2023 19:16:02 06/18/2006/18/2023 CBC/C OMPLE TE BLD COUNT W/DIF F monocytes 7.6 % 5.0-12 .0 Not Available [facility] (Lab) [address] [place], [address], 06/18/2023 19:16:02 06/18/2006/18/2023 CBC/C OMPLE TE BLD COUNT W/DIF F eosinophils 0.6 % 1.0-7. 0 low Not Available [facility] (Lab) [address] [place], [address], 06/18/2023 19:16:02 06/18/2006/18/2023 CBC/C OMPLE TE BLD COUNT W/DIF F basophils 0.4 % 0.0-2. 0 Not Available [facility] (Lab) [address] [place], [address], 06/18/2023 19:16:02 06/18/2006/18/2023 CBC/C OMPLE TE BLD COUNT W/DIF F immature granulocytes 0.2 % 0.00-0 .50 Not Available [facility] (Lab) [address] [place], [address], 06/18/2023 19:16:02 06/18/2006/18/2023 CBC/C OMPLE TE BLD COUNT W/DIF F neutrophils, absolute count 2.96 x10'3 /uL 1.5-8. 0 Not Available [facility] (Lab) [address] [place], [address], 06/18/2023 19:16:02 06/18/2006/18/2023 CBC/C OMPLE TE BLD COUNT W/DIF F lymphocytes, absolute count 1.25 x10'3 /uL 1.07-3 .43 Not Available [facility] (Lab) [address] [place], [address], 06/18/2023 19:16:02 06/18/2006/18/2023 CBC/C OMPLE TE BLD COUNT W/DIF F monocytes, absolute count 0.35 x10'3 /uL 0.29-0 .99 Not Available [facility] (Lab) [address] [place], [address], 06/18/2023 19:16:02 06/18/2006/18/2023 CBC/C OMPLE TE BLD COUNT W/DIF F eosinophils, absolute count 0.03 x10'3 /uL 0.02-0 .53 Not Available [facility] (Lab) [address] [place], [address], 06/18/2023 19:16:02 06/18/2006/18/2023 CBC/C OMPLE TE BLD COUNT W/DIF F basophils, absolute count 0.02 x10'3 /uL 0.01-0 .08 Not Available [facility] (Lab) [address] [place], [address], 06/18/2023 19:16:02 06/18/2006/18/2023 CBC/C OMPLE TE BLD COUNT W/DIF F immature granulocytes ,absolute 0.01 x10'3 /uL 0.00-0 .05 Not Available [facility] (Lab) [address] [place], [address], 06/18/2023 19:16:02 06/18/2006/18/2023 CBC/C OMPLE TE BLD COUNT W/DIF F nucleated red blood cells 0.0 % -0 Not Available [facility] (Lab) [address] [place], [address], 06/18/2023 19:16:02 06/18/20 23 06/18/2023 CBC/C OMPLE TE BLD COUNT W/DIF F NRBC# 0.00 x10'3 /uL Not Available [facility] (Lab) [address] [place], [address], 06/18/2023 19:16:02 06/18/20 23 06/18/2023 COMPR EHENS ALLEGRA METAB OLIC PANEL sodium 141 mmol/ L 137-14 5 Not Available [facility] (Lab) [address] [place], [address], 06/18/2023 19:30:13 06/18/20 23 06/18/2023 COMPR EHENS ALLEGRA METAB OLIC PANEL potassium 4.0 mmol/ L 3.5-5. 1 Not Available [facility] (Lab) [address] [place], [address], 06/18/2023 19:30:13 06/18/20 23 06/18/2023 COMPR EHENS ALLEGRA METAB OLIC PANEL chloride 108 mmol/ L 98-107 high Not Available [facility] (Lab) [address] [place], [address], 06/18/2023 19:30:13 06/18/20 23 06/18/2023 COMPR EHENS ALLEGRA METAB OLIC PANEL carbon dioxide 24 mmol/ L 22-30 Not Available [facility] (Lab) [address] [place], [address], 06/18/2023 19:30:13 06/18/20 23 06/18/2023 COMPR EHENS ALLEGRA METAB OLIC PANEL anion gap 13.0 mmol/ L 14-22 low Not Available [facility] (Lab) [address] [place], [address], 06/18/2023 19:30:13 06/18/20 23 06/18/2023 COMPR EHENS ALLEGRA METAB OLIC PANEL glucose 95 mg/dL 70-99 Not Available [facility] (Lab) [address] [place], [address], 06/18/2023 19:30:13 06/18/2006/18/2023 COMPR EHENS ALLEGRA METAB OLIC PANEL BUN 8 mg/dL 8-19 Not Available [facility] (Lab) [address] [place], [address], 06/18/2023 19:30:13 06/18/2006/18/2023 COMPR EHENS ALLEGRA METAB OLIC PANEL creatinine 0.68 mg/dL 0.66-1 .25 Not Available [facility] (Lab) [address] [place], [address], 06/18/2023 19:30:13 06/18/2006/18/2023 COMPR EHENS ALLEGRA METAB OLIC PANEL GFR >60 Refer ence Range : Sonoita ge GFR Healt hy Adult : >60 mL/mi n/1.7 3 m2 Chron ic Kidne y Disea se: 15-60 mL/mi n/1.7 3 m2 Kidne y Failu re: <15/m L/min /1.73 m2 www.n iddk. nih.g ov The MDRD study equat ion has not been valid ated in child erick <18 years of age; pregn ant women ; the elder ly >85 years of age; or in some racia l or ethni c subgr oups, such as Hispa nics. Outsi de the valid ated sixto eters , estim ated GFR is less accur ate, requi ring clini erika judgm ent on a case- by-ca se basis . Clini erika inter preta tion for other races and ages must be made by the clini paty. The MDRD study equat ion has not been valid ated for the evalu ation of serum creat inine relat ed to nutri ajith l statu s or medic ation usage . For perso ns <18 years of age, a pedia tric GFR calcu lator is avail able on the [facility] websi te: https :[email or web address] miguel.vinay parkinson/guillermina ofess ional s/kdo qi/gf r_cal culat or Not Available [facility] (Lab) [address] [place], [address], 06/18/2023 19:30:13 06/18/20 23 06/18/2023 COMPR EHENS ALLEGRA METAB OLIC PANEL alkaline phosphatase 58 U/L 38-126 Not Available [facility] (Lab) [address] [place], [address], 06/18/2023 19:30:13 06/18/20 23 06/18/2023 COMPR EHENS ALLEGRA METAB OLIC PANEL alanine aminotransfe rase 15 U/L 0-35 Not Available [facility] (Lab) [address] [place], [address], 06/18/2023 19:30:13 06/18/20 23 06/18/2023 COMPR EHENS ALLEGRA METAB OLIC PANEL aspartate aminotransfe rase 18 U/L 15-37 Not Available [facility] (Lab) [address] [place], [address], 06/18/2023 19:30:13 06/18/20 23 06/18/2023 COMPR EHENS ALLEGRA METAB OLIC PANEL bilirubin, total 0.30 mg/dL 0.20-1 .30 Not Available [facility] (Lab) [address] [place], [address], 06/18/2023 19:30:13 06/18/20 23 06/18/2023 COMPR EHENS ALLEGRA METAB OLIC PANEL calcium 9.4 mg/dL 8.4-10 .2 Not Available [facility] (Lab) [address] [place], [address], 06/18/2023 19:30:13 06/18/20 23 06/18/2023 COMPR EHENS ALLEGRA METAB OLIC PANEL total protein 7.5 g/dL 6.3-8. 2 Not Available [facility] (Lab) [address] [place], [address], 06/18/2023 19:30:13 06/18/20 23 06/18/2023 COMPR EHENS ALLEGRA METAB OLIC PANEL albumin 4.3 g/dL 3.4-5. 0 Not Available [facility] (Lab) [address] [place], [address], 06/18/2023 19:30:13 06/18/20 23 06/18/2023 COMPR EHENS ALLEGRA METAB OLIC PANEL globulin 3.2 g/dL 2.6-4. 2 Not Available [facility] (Lab) [address] [place], [address], 06/18/2023 19:30:13 06/18/20 23 06/18/2023 COMPR EHENS ALLEGRA METAB OLIC PANEL A/G ratio 1.3 ratio 1.0-2. 0 Not Available [facility] (Lab) [address] [place], [address], 06/18/2023 19:30:13 06/18/20 23 06/18/2023 LIPID PANEL cholesterol 109 mg/dL 140-19 9 low NIH JORDAN NSUS RECOM MENDA TION FOR NEAL STERO L: ADULT CHILD LOW RISK: <200 <170 BORDE RLINE : <200- 239 ----- HIGH RISK: >240 >200 Not Available [facility] (Lab) [address] [place], [address], 06/18/2023 19:30:18 06/18/2006/18/2023 LIPID PANEL triglyceride s 46 mg/dL 0-150 NIH JORDAN NSUS REPOR T RECOM MENDA TION FOR TRIGL YCERI EDE: ADULT CHILD LOW RISK: <150 ----- BODER LINE: 150-1 99 ----- HIGH RISK: >200 ----- Not Available [facility] (Lab) [address] [place], [address], 06/18/2023 19:30:18 06/18/20 23 06/18/2023 LIPID PANEL HDL cholesterol 39 mg/dL 40- low Not Available [facility] (Lab) [address] [place], [address], 06/18/2023 19:30:18 06/18/20 23 06/18/2023 LIPID PANEL LDL cholesterol, calculated 61 mg/dL 0-130 NIH JORDAN NSUS REPOR T RECOM MENDA TIONS FOR LDL: ADULT CHILD LOW RISK <130 <110 (OPTI MAL LDL) <100 ----- BORDE RLINE : 130-1 59 ----- HIGH RISK: >160 >130 A TRIGL YCERI DE RESUL T >400 INVAL IDATE S THE CALCU LATIO N FOR LDL FRACT IONAT ION - THE LDL RESUL T WILL NOT BE REPOR TORY. Not Available [facility] (Lab) [address] [place], [address], 06/18/2023 19:30:18 06/18/2006/18/2023 APTT APTT 30.0 secon ds 23.4-3 1.4 PLEAS E NOTE NEW APTT REFER ENCE RANGE EFFEC TIVE 11/05 . Not Available [facility] (Lab) [address] [facility] [place], [address], 06/18/2023 19:31:28 06/18/2006/18/2023 PROTI ME W/INR protime 10.9 secon ds 9.5-11 .5 Not Available [facility] (Lab) [address] [place], [address], 06/18/2023 19:31:34 06/18/20 23 06/18/2023 PROTI ME W/INR INR 1.0 INR INDIC ATION S 2.0 - 3.0 PROPH YLAXI S: VENOU S THROM BOSIS (HIGH RISK SURGE RY) AND SYSTE NED EMBOL ISM (TISS UE HEART VALVE S, AMI VALVU LAR HEART DISEA SE AND ATRIA L FIBRI LLATI ON). TREAT MENT: VENOU S THROM BOSIS AND PULMO NARY EMBOL ISM BILEA FLET MECHA NICAL VALVE S IN AORTI C POSIT ION. 2.5 - 3.5 MECHA NICAL PROST HETIC HEART VALVE S (TILT ING DISK VALVE S AND BILEA FLET MECHA NICAL VALVE S IN KIZZY L POSIT ION). PREVE NTION OF RECUR RENT MYOCA RDIAL INFAR CTION . ANTIP HOSPH OLIPI D SYNDR OME. Not Available [facility] (Lab) [address] [place], [address], 06/18/2023 19:31:34 06/18/20 23 06/18/2023 TSH thyroid-stim ulating hormone 0.873 uIU/m L 0.465- 4.680 Not Available [facility] (Lab) [address] [place], [address], 06/18/2023 19:58:13 01/18/20 23 01/17/2023 XR, finge r(s), 2 or more view No observ ation record ed. [address] [place], [address], 01/18/2023 10:29:18 05/26/20 23 05/26/2023 XR, cervi erika spine No observ ation record ed. [email or web address] [facility] [address], [place], [address], 05/30/2023 09:32:47 11/14/20 23 11/13/2023 XR, foot, 3 or more view No observ ation record ed. [email or web address] Not Available 2023 09:16:26 04/21/20 24 04/19/2024 XR, shoul nya, 2 or more view No observ ation record ed. [email or web address] Not Available 02/2024 15:13:56 Result Notes None recorded. Problems Name Problem SNOMED Code Status Onset Date Resolution Date Notes Provider Name and Address Organization Details Recorded Time Otalgia of left ear 9240346999 Completed 202105/27/2023 Rosalind modi RMA null, [place] [facility] 3 15:08:50 Pain of bilateral hands 97855880788 873504 Completed 202105/27/2023 Roaslind modi RMA null, [place] [facility] 3 15:08:48 Laborator y test result abnormal 555202243 Active 2021 Not Available [facility] 3 19:46:25 Lupus erythemat osus 591551213 Active 2021 Not Available [facility] 3 19:46:25 Headache 82728775 Completed 202105/15/2022 Not Available [facility] 3 19:46:25 Migraine 52636777 Active 2021 Not Available [facility] 3 19:46:25 Celiac disease 247103336 Active 2020 Not Available [facility] 3 19:46:25 Obesity 647773306 Active 2020 Not Available [facility] 3 19:46:25 Nausea 387187644 Completed 202105/15/2022 Not Available [facility] 3 19:46:25 Aphthous ulcer of mouth 037272633 Completed 202105/15/2022 Not Available [facility] 3 19:46:26 Acute urinary tract infection 643522104 Completed 202105/15/2022 Rosalind modi RMA null, [place] [facility] 3 15:08:38 Pain of right knee joint 81759152256 4100 Active 2022 Not Available [facility] 3 19:46:26 Hip pain 07307537 Completed 202105/15/2022 Not Available [facility] 3 19:46:26 Upper respirato ry infection 83308738 Active 2021 Not Available [facility] 3 19:46:26 Alopecia 88339072 Active 2021 Not Available [facility] 3 19:46:26 Smoker 23695317 Active 2020 Not Available [facility] 3 19:46:26 41951481 Completed 201812/17/2019 Not Available [facility] 3 19:46:26 Hyperglyc emia 94057094 Active 2020 Not Available [facility] 3 19:46:26 COVID-19 014490428 Completed 202105/27/2023 Rosalind modi RMA null, [place] [facility] 3 15:08:41 Injury of finger 99610090 Active 2022 Sarah Cabrera CMA null, [place] [facility] 3 10:30:18 Pain in right hand 03877721092 9109 Completed 202205/27/2023 Rosalind modi RMA null, [place] [facility] 3 15:08:45 Mass of hand 283385562 Active 2022 Arvind Guevara MD [address], [address], [place], [address] , [facility] 3 09:51:43 Acute urinary tract infection 031692286 Completed 202205/27/2023 Rosalind modi RMA null, [place] [facility] 3 15:08:38 Neck pain 15874104 Active 2022 Rashaun Green MD [address], [address], [place], [address] , [facility] 3 15:13:57 Hyperlipi demia 77443385 Active 2022 Rashaun Green MD [address], [address], [place], [address] , [place] [facility] [place] [facility] 3 15:51:16 Multiple bruising 585529778 Active 2022 Rashaun Green MD [address], [address], [place], [address] , [place] [facility] 3 15:51:39 Easy bruising 259269696 Active 2022 Rashaun Green MD [address], [address], [place], [address] , [place] [facility] 3 15:51:58 Weight loss 86806697 Active 2022 Rashaun Green MD [address], [address], [place], [address] , [facility] 3 15:52:46 Hypocalce ashleigh 8205449 Active 2022 Rashaun Green MD [address], [address], [place], [address] , [facility] 3 10:12:38 Cough 99577743 Active 2022 Rama Irene LPN null, [place] [facility] 3 13:05:48 Pain of right shoulder joint 96902405936 067656 Active 2023 KELI Meyers null, [place] [facility] 4 12:07:44 Right rotator cuff strain Active 2023 RENALDO Washburn [address], [address], [place], [address] , [place] [facility] 4 12:52:20 Contusion of right shoulder 15526962578 792539 Active 2023 RENALDO Washburn [address], [address], [place], [address] , [place] [facility] 4 12:52:27 Notes:Some problems listed i n Documents: #[id number], #[id number] could not be added to this patient's chart. Please review these documents and add these problems to the patient's chart manually as needed. Problem Notes None recorded. Procedures Surgical History Date Name Laterality Status Provider Name and Address Organization Details Recorded Time 03/21/20 CONDUIT CLEANER Surgery completed Not Available [facility] 01/17/20 19:45:31 03/13/20 endometrial biopsy completed Not Available [facility] 01/16/2023 19:45:31 03/08/20 Date of Last Pap Smear completed Not Available [facility] 01/16/2023 19:45:30 04/12/20 laparoscopic salpingectomy completed Not Available [facility] 01/16/2023 19:45:31 03/18/20 CONDUIT CLEANER Surgery completed Not Available [facility] 01/17/20 19:45:31 Eye Surgery completed Not Available [facility] 01/16/2023 19:45:31 Ankle arthroscopy/surge ry completed Not Available [facility] 01/16/2023 19:45:31 Imaging Results Imaging Date Name Status LastModified by Organiz ation Details LastModified Time 01/17/2023 XR, finger(s), 2 or more view completed [address] [facility] [place], [address], 01/18/2023 10:29:18 05/26/2023 [email or web address] [address], [address], 05/30/2023 09:32:47 11/13/2023 XR, foot, 3 or more view completed [email or web address] Information not available 11/27/2023 09:16:26 04/19/2024 XR, shoulder, 2 or more view completed [email or web address] Information not available 04/21/2024 15:13:56 Procedure Notes None recorded. Medical Equipment None Reported. Allergies Allergen ID Allergen Name Allergen Category Reaction Reaction Severity Criticality Documentation Date Start Date Code Code System Note Provider Name and Address Organization Details Recorded Time 27822 oxybutyni n medicatio n anaphylax is Not available Not available 01/16/2023 19651 RxNorm Not Available [facility] 19:47:43 09973 morphine medicatio n anaphylax is Not available Not available 01/16/2023 7052 RxNorm Not Available [facility] 3 19:47:43 92326 Iodinated contrast media (substanc e) medicatio n rash Not available Not available 01/16/2023 08108 2004 SNOMED Not Available [facility] 3 19:47:43 43603 fluconazo le medicatio n swelling Not available Not available 01/16/2023 4450 RxNorm Not Available [facility] 3 19:47:43 63352 hydrocodo ne Not available rash severe Not available 01/16/2023 5489 RxNorm Not Available [facility] 3 19:47:43 Medications Name Sig Start Date Stop Date Status Note LastModified by Organization Details LastModified Time cyclobenzap rine 10 mg tablet TAKE 1 TABLET BY MOUTH THREE TIMES DAILY NEEDED FOR MUSCLE SPASM 04/27 completed Not Available Not Available Not Available amoxicillin 500 mg capsule TAKE 1 CAPSULE BY MOUTH THREE TIMES DAILY 01/02 completed Not Available Not Available Not Available bupropion HCl SR 150 mg tablet,12 hr sustained-r elease TK 1 T PO BID 10/01 completed Not Available Not Available Not Available prednisone 10 mg tablet take 6p2bvaf, 3m5iqpr, 2a8cskn active Not Available Not Available No t Available Vitamin B-6 25 mg tablet TK 1 T PO QID 06/22 completed Not Available Not Available Not Available ibuprofen 800 mg tablet TAKE 1 TABLET BY MOUTH EVERY 8 HOURS 04/27 completed Not Available Not Available Not Available fluconazole 150 mg tablet TAKE 1 TABLET BY MOUTH EVERY 72 HOURS 12/27 completed Not Available Not Available Not Available benzonatate 200 mg capsule Take 1 capsule 3 times a day by oral route. 01/02 completed Not Available Not Available Not Available valacyclovi r 1 gram tablet TAKE 1 TABLET BY MOUTH EVERY 12 HOURS 12/27 completed Not Available Not Available Not Available hydrocodone 5 mg-acetamin ophen 325 mg tablet TAKE 1-2 TABLETS BY MOUTH EVERY 6 HOURS NEEDED FOR MODERATE OR MORE SEVERE PAIN 04/27 completed Not Available Not Available Not Available prochlorper azine maleate 5 mg tablet TAKE 1 TABLET BY MOUTH EVERY 6 HOURS NEEDED FOR NAUSEA 08/24 completed Not Available Not Available Not Available fluconazole 200 mg tablet TK 1 T PO QD active Not Available Not Available No t Available naltrexone 50 mg tablet TK 1/2 T PO BID 11/13 completed Not Available Not Available Not Available phenazopyri dine 200 mg tablet TAKE 1 TABLET BY MOUTH THREE TIMES DAILY FOR 7 DAYS 08/24 completed Not Available Not Available Not Available sumatriptan 25 mg tablet active Not Available Not Available Not Available metronidazo le 0.75 % (37.5 mg/5 gram) vaginal gel INSERT 1 APPLICATO RFUL VAGINALLY 1 TIME DAILY FOR 5 DAYS 01/02 completed Not Available Not Available Not Available ondansetron HCl 4 mg tablet TK 1 T PO TID PRN 08/24 completed Not Available Not Available Not Available prednisone 20 mg tablet TAKE 1 TABLET BY MOUTH DAILY FOR 3 DAYS 12/27 completed Not Available Not Available Not Available terconazole 0.8 % vaginal cream INSERT 1 APPLICATO RFUL EVERY DAY VAGINALLY FOR 3 DAYS 04/27 completed Not Available Not Available Not Available clotrimazol e 1 % vaginal cream Insert 1 g by vaginal route. active Not Available Not Available No t Available triamcinolo ne acetonide 0.5 % topical ointment APPLY TOPICALLY TO THE AFFECTED AREA TWICE DAILY 12/27 completed Not Available Not Available Not Available acetaminoph en 300 mg-codeine 30 mg tablet TK 1 T PO Q 6 H PRN active Not Available Not Available No t Available ciprofloxac in 250 mg tablet TAKE 1 TABLET BY MOUTH TWICE DAILY 01/02 completed Not Available Not Available Not Available acyclovir 400 mg tablet TAKE 1 TABLET BY MOUTH THREE TIMES DAILY 12/27 completed Not Available Not Available Not Available ciprofloxac in 500 mg tablet TAKE 1 TABLET BY MOUTH TWICE DAILY FOR 10 DAYS 08/24 completed Not Available Not Available Not Available sulfamethox azole 800 mg-trimetho prim 160 mg tablet TK 1 T PO BID FOR 3 DAYS 08/24 completed Not Available Not Available Not Available tramadol 50 mg tablet Take 1 tablet every 6 hours by oral route. 08/24 completed Not Available Not Available Not Available acyclovir 800 mg tablet 05/06 completed Not Available Not Available Not Available ketorolac 10 mg tablet TAKE 1 TABLET BY MOUTH EVERY 6 HOURS NEEDED FOR MODERATE TO SEVERE PAIN 08/24 completed Not Available Not Available Not Available prednisone 10 mg tablets in a dose pack Take 1 tab by mouth, 3 times a day for 3 daysTake 1 tab by mouth 2 times a day for 2 daysTake 1 tab by mouth once a day for 1 day 2023 active Not Available Not Available Not Avai lable oxycodone-a cetaminophe n 5 mg-325 mg tablet TAKE 1 TABLET BY MOUTH EVERY 4-6 HOURS NEEDED active Not Available Not Available No t Available famotidine 20 mg tablet TAKE 1 TABLET BY MOUTH TWICE DAILY FOR 4 DAYS 12/27 completed Not Available Not Available Not Available DOK 100 mg capsule TK 1 C PO BID PRF CONSTIPAT ION 04/18 completed Not Available Not Available Not Available tamsulosin 0.4 mg capsule TAKE 1 CAPSULE BY MOUTH DAILY 08/24 completed Not Available Not Available Not Available dicyclomine 20 mg tablet TAKE 1 TABLET BY MOUTH TWICE DAILY NEEDED FOR PAIN 04/27 completed Not Available Not Available Not Available Kenalog 10 mg/mL suspension for injection Take 20 mg by injection route. 2023 active [facility]: [phone] Not Available Not Available Not Available amitriptyli ne 10 mg tablet TAKE 1 TABLET BY MOUTH EVERY NIGHT active Not Available Not Available No t Available meclizine 25 mg tablet TK 1 T PO Q 8 H PRN. 11/13 completed Not Available Not Available Not Available phenazopyri dine 100 mg tablet 04/18 completed Not Available Not Available Not Available cephalexin 500 mg capsule TK 1 C PO QID FOR 7 DAYS 03/03 completed Not Available Not Available Not Available nitrofurant oin macrocrysta l 100 mg capsule TK 1 C PO BID FOR 7 DAYS active Not Available Not Available No t Available ranitidine 150 mg tablet Take 1 tablet twice a day by oral route. active Not Available Not Available No t Available promethazin e 25 mg tablet TAKE 1 TABLET BY MOUTH THREE TIMES DAILY NEEDED FOR NAUSEA OR VOMITING 04/27 completed Not Available Not Available Not Available norethindro ne acetate 1 mg-ethinyl estradiol 20 mcg tablet Take 1 tablet every day in a continuou s manner 12/13 completed Not Available Not Available Not Available permethrin 1 % topical liquid APPLY A SUFFICIEN T AMOUNT OF SHAMPOO BY TOPICAL ROUTE ONCE ALLOW TO REMAIN ON HAIR FOR 10 MINUTES BEFORE RINSING OFF WITH WATER 05/25 completed Not Available Not Available Not Available triamcinolo ne acetonide 0.1 % lotion APPLY THIN LAYER TOPICALLY TO THE AFFECTED AREA TWICE DAILY 05/15 completed Not Available Not Available Not Available ibuprofen 600 mg tablet TAKE 1 TABLET BY MOUTH EVERY 6 HOURS NEEDED FOR ABDOMINAL CRAMPING/ DISCOMFOR T active Not Available Not Available No t Available methylpredn isolone 4 mg tablets in a dose pack FOLLOW PACKAGE DIRECTION S 01/02 completed Not Available Not Available Not Available albuterol sulfate HFA 90 mcg/actuati on aerosol inhaler INHALE 2 PUFFS BY MOUTH FOUR TIMES DAILY NEEDED active Not Available Not Available No t Available oxybutynin chloride 5 mg tablet TAKE 1 TABLET BY MOUTH TWICE DAILY 08/24 completed Not Available Not Available Not Available ondansetron 4 mg disintegrat ing tablet DISSOLVE 1 TABLET BY MOUTH EVERY 6 HOURS NEEDED FOR NAUSEA 04/27 completed Not Available Not Available Not Available drospirenon e 3 mg-ethinyl estradiol 0.03 mg tablet Take 1 tablet every day by oral route. 08/24 completed Not Available Not Available Not Available Unisom (doxylamine ) 25 mg tablet Take 12.5 mg 3 times a day by oral route. 05/25 completed Not Available Not Available Not Available doxycycline hyclate 100 mg tablet Take 1 tablet twice a day by oral route for 14 days. 10/23 completed Not Available Not Available Not Available loratadine 10 mg tablet 04/27 completed Not Available Not Available Not Available naproxen 500 mg tablet TAKE 1 TABLET BY MOUTH TWICE DAILY NEEDED FOR MODERATE TO SEVERE PAIN 04/27 completed Not Available Not Available Not Available amoxicillin 875 mg-potassiu m clavulanate 125 mg tablet TAKE 1 TABLET BY MOUTH TWICE DAILY FOR 7 DAYS 04/27 completed Not Available Not Available Not Available Lessina 0.1 mg-20 mcg tablet TK 1 T PO QD FOR 28 DAYS 04/28 completed Not Available Not Available Not Available cyclobenzap rine 5 mg tablet TAKE 1 TABLET BY MOUTH TWICE DAILY NEEDED 04/27 completed Not Available Not Available Not Available Marcaine (PF) 0.5 % (5 mg/mL) injection solution Take 20 mg by injection route. 2023 active Not Available Not Available Not Avai lable nitrofurant oin monohydrate /macrocryst als 100 mg capsule TAKE 1 CAPSULE BY MOUTH EVERY 12 HOURS FOR 5 DAYS 01/09 completed Not Available Not Available Not Available Se- 19 (with docusate) 29 mg iron-1 mg-25 mg tablet TK 1 T PO QD 09/16 completed Not Available Not Available Not Available Lo Loestrin Fe 1 mg-10 mcg (24)/10 mcg (2) tablet TK 1 T PO QD 04/27 completed Not Available Not Available Not Available Nexplanon 68 mg subdermal implant Inject by subcutane ous route. 04/27 completed Not Available Not Available Not Available 28 mg iron-800 mcg tablet Take 1 tablet every day by oral route. 06/22 completed Not Available Not Available Not Available Xulane 150 mcg-35 mcg/24 hr transdermal patch VAHE 1 PA EXT TO THE SKIN Q WEEK 04/18 completed Not Available Not Available Not Available 105-iron-fo lic ac-dha QD 12/31 completed Not Available Not Available Not Available Anusol-HC 2.5 % topical cream with perineal applicator APPLY A THIN LAYER TO THE AFFECTED AREA(S) BY TOPICAL ROUTE 2-4 TIMESDAIL Y 06/22 completed Not Available Not Available Not Available Se- 19 29 mg iron-1 mg tablet TK 1 T PO QD 11/23 completed Not Available Not Available Not Available Ubrelvy 50 mg tablet TAKE 1 TABLET BY MOUTH EVERY DAY NEEDED active Not Available Not Available No t Available Vitals Date Recorded Body height Body mass index (BMI) Body weight Provider Name and Address Organization Details Last Updated DateTime 01/22/2023 166.37 cm 36.1 kg/m2 59960.32 g Mary Jane LOPEZ - [facility] [employer] 01/22/2023 09:26:14 Date Recorded Body height Body mass index (BMI) Body weight Body temperature Heart rate Oxygen saturation Oxygen saturation in Arterial blood by Pulse oximetry Systolic blood pressure Diastolic blood pressure Provider Name and Address Organization Details Last Updated DateTime 3 166.37 cm 35.2 kg/m2 03495.3 6 g 97.7 [degF] 110 /min 98 % 98 % 126 mm[Hg] 72 mm[Hg] Rosalind rendon [facility] [employer] [facility] 3 15:05:11 Date Recorded Body height Body mass index (BMI) Body weight Body temperature Heart rate Oxygen saturation Oxygen saturation in Arterial blood by Pulse oximetry Systolic blood pressure Diastolic blood pressure Provider Name and Address Organization Details Last Updated DateTime 3 166.37 cm 34.4 kg/m2 75295.4 g 98.1 [degF] 98 /min 98 % 98 % 112 mm[Hg] 74 mm[Hg] Sarah Cabrera [facility] [employer] [facility] 3 15:36:03 Date Recorded Body height Body mass index (BMI) Body weight Heart rate Oxygen saturation Oxygen saturation in Arterial blood by Pulse oximetry Systolic blood pressure Diastolic blood pressure Provider Name and Address Organization Details Last Updated DateTime 3 166.37 cm 32.4 kg/m2 47314.2 9 g 101 /min 98 % 98 % 124 mm[Hg] 80 mm[Hg] Rosalind rendon [facility] [employer] [facility] 3 09:55:33 Date Recorded Body height Body mass index (BMI) Body weight Provider Name and Address Organization Details Last Updated DateTime 04/27/2024 166.37 cm 31.5 kg/m2 69313.74 g Selene Ying [facility] [employer] [facility] 04/27/2024 12:04:35 Social History Question Answer Notes LastModified by Organizat ion Details LastModified Time Tobacco Smoking Status Current Every Day Smoker Not Available [employer] 01/16/2023 19:45:22 What Is Your Level Of Alcohol Consumption? Occasional [id number] Information not available 01/16/2023 What Is Your Level Of Caffeine Consumption? Moderate [id number] Information not available 01/16/2023 In The 14 Days Before Symptom Onset, Have You Had Close Contact With A Laboratory-confir med COVID-19 While That Case Was Ill? No [id number] Information not available 01/16/2023 In The 14 Days Before Symptom Onset, Have You Had Close Contact With A Person Who Is Under Investigation For COVID-19 While That Person Was Ill? No [id number] Information not available 01/16/2023 Do You Or Have You Ever Used E-cigarettes Or Vape? 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 16 [id number] Information not available 01/16/2023 How Much Tobacco Do You Smoke? 0.5 PPD [id number] Information not available 01/16/2023 Sex: Unknown Functional Status Question Answer Note LastModified by Organizat ion Details LastModified Time What is your exercise level? Occasional [id number] Information not available 01/16/2023 Mental Status None recorded. Family History Relationship Description Onset Age of this Age Resolved Age Notes LastModified by Organization Details LastModified Time Mother Hypothyroidi sm [email or web address] Not available 2023 11:46:43 Mother Essential hypertension [email or web address] Not available 08/2024 11:46:43 Mother Depressive disorder [id number] Not available 01/16/2023 19:45:32 Maternal Grandmother Diabetes mellitus [id number] Not available 01/16/2023 19:45:32 Medical History Condition Response ANXIETY DISORDER HERPES Y Gynecological History Statement/Question Response Abnormal Pap Y Flow Heavy Date of LMP 08/01/2021 Duration of Flow (days) 6 Date of Last Pap Smear 03/08/2021 Current Control Method Tubal Ligat ion Age at Menarche 11 Breast Problems director inpatient headache program Obstetrics History GPAL:G 2 P 2 0 0 2 Type Value Full Term 2 Living 2 Total 2 Past Encounters Encounter ID Performer Location Encounter Start Date Encounter Closed Date Diagnosis/Indication Diagnosis SNOMED-CT Code Diagnosis ICD10 Code Diagnosis Note [id number] _TRINA_M IGRATION_ DEFAULT_1 _1 , 03/08/2021 00:00:00 03/08/2021 12:43:05 [id number] _GENNRAOENA_M IGRATION_ DEFAULT_1 _1 , 03/13/2021 00:00:00 03/13/2021 12:12:10 [id number] _ATHENA_M IGRATION_ DEFAULT_1 _1 , 04/03/2021 00:00:00 04/03/2021 12:28:34 [id number] _ATHENA_M IGRATION_ DEFAULT_1 _1 , 05/18/2021 00:00:00 05/18/2021 17:49:13 [id number] _ATHENA_M IGRATION_ DEFAULT_1 _1 , 06/01/2021 00:00:00 06/01/2021 12:40:10 [id number] [facility] [place] [address] [facility] [address] [place] [address] 06/27/2021 00:00:00 06/27/2021 17:35:55 [id number] _ATHENA_M IGRATION_ DEFAULT_1 _1 , 08/24/2021 00:00:00 08/24/2021 17:08:35 [id number] [facility] [address] [address] 10/23/2021 00:00:00 10/23/2021 16:57:17 [id number] [facility] [address] [address] 12/13/2021 00:00:00 12/13/2021 14:53:31 [id number] [facility] [address] [address] 01/09/2022 00:00:00 01/09/2022 14:30:58 [id number] [facility] [address] [address] 02/16/2022 00:00:00 02/16/2022 11:35:46 [id number] [facility] [address] [address] 05/15/2022 00:00:00 05/15/2022 15:38:05 [id number] [facility] [address] [place] [address] 09/27/2022 00:00:00 09/27/2022 14:52:07 [id number] [facility] [address] [place] [address] 10/15/2022 00:00:00 10/15/2022 12:49:17 [id number] [facility] [address] [place] [address] 12/27/2022 00:00:00 12/27/2022 10:41:25 [id number] Arvind Guevara MD [facility] [address] [address] 01/22/2023 09:04:45 01/22/2023 10:42:09 Pain in right hand 6123799970 71811 M79.641 Mass of hand 920120468 R 22.31 4th finger [id number] Rashaun Green MD [facility] [address] [place] [address] 05/27/2023 15:00:14 05/27/2023 15:23:07 Neck pain 65097875 M54.2 ice pack, stretching , ibuprofen [id number] Rashaun Green MD [facility] [address] [address] 06/18/2023 15:30:53 06/18/2023 15:58:14 Hyperlipidemia 65968513 E78.5 Easy bruising 288374131 R58 Weight loss 62351036 R63 .4 watch [id number] Rashaun Green MD [facility] [address] [address] 09/06/2023 09:48:33 09/06/2023 10:27:38 Hypocalcemia 7341361 E83.51 labs, not on calcium [id number] RENALDO Washburn [facility] [place] [address] [place] [address] 04/27/2024 11:44:30 04/27/2024 12:44:23 Pain of right shoulder joint 5765699705 1770083 M25.511 Right rota tor cuff strain 9313494935 1405238 S46.011A Contusion of right shoulder 2130598180 7903538 S40.011A Health Concerns Section Related Observation LastModified by Organization Detai ls LastModified Time None Recorded Concern Status LastModified by Organization Details LastModified Time None Recorded Advance Directives Directive None Recorded Payers Encounter Date Sequence Insurance Name Policy Number Policy Agrawal Covered Member ID Agrawal Member ID Guarantor Name 01/22/2023 1 [facility] ON OR AFTER 05/18/21 (MEDICAID REPLACEMENT - HMO) Sabina Chandler [id number] Sabina Chandler 05/27/2023 1 [facility] ON OR AFTER 05/18/21 (MEDICAID REPLACEMENT - HMO) Sabina Chandler [id number] Sabina Chandler 06/18/2023 1 [facility] ON OR AFTER 05/18/21 (MEDICAID REPLACEMENT - HMO) Sabina Chandler [id number] Sabina Chandler 09/06/2023 1 [facility] ON OR AFTER 05/18/21 (MEDICAID REPLACEMENT - HMO) Sabina Chandler [id number] Sabina Chandler 04/27/2024 [employer] Sabina Chandler Notes Date Note Type Note Provider Name and Address Organization Details Recorded Time 01/22/2023 text/html Patient presents mass right 4th finger. Tender to palpation has pain to manipulation masses in the distal phalanx. She had x-rays done which demonstrate the lytic area. Arvind Guevara MD [address] [place] [address], [place] [address], [place], [address], [facility] [employer] 01/22/2023 09:52:05 05/27/2023 text/html She is here toda y for neck pain.She was stretching yesterday and felt a pop in her neck followed by pain. The pain starts on the left side of the back of her head and goes down her neck to her shoulder.She went to and all they did was an Xray and said she has arthritis and gave her an ice pack. She did take some left over muscle relaxers she had which was flexeril 5mg but she said that it did not help at all. Has been taking OTC ibuprofen also.Pain level is 9/10Pain more on movementsno radiation Rashaun Green MD [address], [place], [address], [employer] 05/27/2023 15:21:00 06/18/2023 text/html Pt is here today with c/o excessive bruising on her legs and arms. has noticed for a while now, says they are getting bigger and more randomshe is not on any meds like asa or NSAIDSshe has positive NICO but all the other labs were nl, seen rheumatology.she is losing weight, has good appetite Rashaun Green MD [address], [place], [address], [employer] 06/18/2023 15:53:50 09/06/2023 text/html Went to [facility] a month ago and was told she had low calcium.She has been having Adi horses all over and would like her labs checked againshe went to ER for abd painHer labs were nl 2 months ago Rashaun Green MD [address], [place], [address], [employer] 09/06/2023 10:13:35 04/27/2024 text/html patient is a 20-year-old female who suffered an injury to her right shoulder April 17 at work. She was lifting a baby mattress up overhead to a shelf when another box up higher fell off the shelf striking her on her right shoulder superiorly. At the same time she was trying to hold up the mattress and had immediate pain due to the impact plus strain of holding the heavy object up overhead. She was unable to continue working she was having a lot of pain in the shoulder with almost any motion. She waited a few days to see if she will get better then on 04/19/2024 she went to the emergency room where she had x-rays performed. X-rays demonstrated no acute fracture lesion mass no subluxation or dislocation x-rays were unremarkable. I have reviewed the x-rays in detail today with the patient agree with the above findings. She was given a sling told to take naproxen she was given a prescription she has been taking this but really does not seem to help much she is continues to have significant pain with almost any motion of the shoulder she has really not been using it much just using the sling for support. She has a hard time raising her arm overhead she can raise it to about 90 beyond this is quite painful. She also can not reach behind her back because of her pain. With strength testing she appears to have good strength passively I can get her through the full arc of motion with some discomfort. She denies any neck pain no radicular pain down the arm no numbness or tingling. Prior to the injury she was not having any issues with her right shoulder. She comes in today for initial evaluation treatment. Despite conservative measures her symptoms continue. A new past medical history sheet was reviewed and signed on intake sheet of today's date drug allergies current medications family social history previous surgical history 10 point review of systems was reviewed and discussed in detail today with the patient. RENALDO Washburn [address] [facility], [facility] [address], [place], [address], [place] [facility] [employer] 04/27/2024 12:52:56 OBGyn Episode No OBEpisode recorded.
--- OUTSIDE RECORDS SUMMARY | 2025-03-04 08:50 | XMS_ITS | Encounter Summary ---
Author Organization [facility] Address [address] 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 Name Role Phone Kostas Washington MD Primary Care Provider [phone] Kostas Washington MD Primary Care Provider [phone] Eric Hooper MD Unavailable [phone] Reason for Referral * Radiology Services (Routine) - Closed Specialty Diagnoses / Procedures Referred By Contac t Referred To Contact Radiology Diagnoses Pre-op testing Procedures EKG 12 LEAD Juan Mancilla MD Referral ID Status Reason Start Date Expiration Date Visits Re quested Visits Authorized [id number] Closed 06/06/2021 1 1 Encounter Details Date Type Department Care Team (Latest Contact Info) Description 06/06/2021 Transcribe Orders [facility] Preop/Pacu II [address] [place] [id number] Juan Mancilla MD Pre-op testing (Primary Dx) Social History Tobacco Use Types Packs/Day Years Used Date Smoking Tobacco: Every Day Cigarettes Smokeless Tobacco: Never Alcohol Use Standard Drinks/Week Comments Yes 0 (1 standard drink = 0.6 oz pur e alcohol) RARELY Sexually Active Control Partners Comments Yes Surgical TUBAL LIGATION Comments No Sex and Gender Information Value Date Recorded Sex Assigned at Not on file Legal Sex Female 7:21 PM 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 No / Unsure 06/09/2021 5:16 AM CDT documented as of this encounter Plan of Treatment Not on file documented as of this encounter Results * EKG 12 LEAD (06/07/2021 9:18 AM CDT) Ventricular Rate BPM EXTERNAL EKG Atrial Rate BPM EXTERNAL EKG P-R Interval 158 ms EXTERNAL EKG QRS Duration 84 ms EXTERNAL EKG Q-T Duration 338 ms EXTERNAL EKG QTC CALCULATION 445 ms EXTERNAL EKG P [place] 55 degrees EXTERNAL EKG R [place] 90 degrees EXTERNAL EKG T [place] 22 degrees EXTERNAL EKG 06/07/2021 9:18 AM CDT Impressions EXTERNAL EKG - 06/08/2021 9:13 AM CDT Sinus tachycardia Rightward axis Comparison Summary: No serial comparison made Summary: Borderline ECG Confirmed by Osei Norris [id number] on 06/08/2021 9:13:35 AM Narrative Procedure Note Leslie Franz MD - 06/08/2021 IMPRESSION: Sinus tachycardia Rightward axis Comparison Summary: No serial comparison made Summary: Borderline ECG Confirmed by Osei Norris [id number] on 06/08/2021 9:13:35 AM [place] Charo ROJAS IMG ECG ORDERABLES Final Result EXTERNAL EKG * SARS-COV-2 BY MOLECULAR (06/07/2021 9:06 AM CDT) SARSCOV2 NOT DETECTED (Referenc e Range for this test is Not Detected) [facility] ID NOW 06/07/2021 9:29 AM CDT [facility] Comment:This test was perfor med by a MOLECULAR, NON-PCR method Other NASOPHARYNGEAL STRUCTURE / Unknown Non-Phlebotomy Collection / Unknown 06/07/2021 9:06 AM CDT 06/07/2021 9:11 AM CDT Narrative [facility] - 06/07/2021 9:29 AM CDT This test has been authorized by the FDA under an Emergency Use Authorization (EUA) only. Negative results should be treated as presumptive and, if inconsistent with clinical signs and symptoms or necessary for patient management, the patient should be tested with an alternative molecular assay. Negative results do not preclude SARS-CoV-2 infection or any other respiratory pathogen. Additional information for Clinicians can be found at: https://www.fda.gov/media/518247/download Additional information for Patients can be found at: https://www.fda.gov/media/508934/download Juan Mancilla MD MICROBIOLOGY - GENERAL ORDERABLE S Final Result [facility] [address] [place] [address] documented in this encounter Visit Diagnoses Diagnosis Pre-op testing- Primary Preoperative examination, unspecified Pre-op testing Preoperative examination, unspecified documented in this encounter Care Teams Double Spindle Shaper Operator Relationship Specialty Start Date End Date Kostas Washington MD PCP - General Internal Medicine 11/10/18 06/06/21 Kostas Washington MD PCP - General Internal Medicine 06/07/21 Eric Hooper MD Consulting Physician Gastroenterology 10/29/23 02/04/25 documented as of this encounter
--- OUTSIDE RECORDS SUMMARY | 2025-03-04 08:50 | XMS_ITS | Clinical Summary ---
Author Organization [facility] Address [address] [address] Care Team Providers Care Mouse Breeder Name Role Phone [facility] Primary Care Provi nya Source Comments [facility],non-capital region medical center Affiliates and Associated Physician Practices is amultiple site organization consisting of ambulatory clinics and hospital sitesin [place], [place], [place] and [place]. This disclosure is being madepursuant to the Care Everywhere program and may not contain all information available regarding this patient. Last updated 18.[facility] Allergies Active Allergy Reactions Criticality Noted Date Comments Morphine Itching 08/22/2016 Medications * Be aware that medications may not be up to date on this document. Alwaysverify current medications with the patient. buPROPion SR 12hr (ZYBAN) 150 MG tabletIndicatio ns:Nicotine Dependence Take 150 mg by mouth 2 times daily Reasons: Nicotine Addiction Active Vit-Fe Fumarate-FA ( VITAMIN) 28-0.8 MG tablet Take 1 Tab by mouth once daily Active calcium-vitamin D (OS-CESAR 500 + D) 500-200 MG-UNIT tablet Take 1 Tab by mouth once daily Active ibuprofen (MOTRIN) 600 MG tablet Take 1 Tab by mouth every 6 hours as needed for Pain 60 Tab 1 6 Active docusate sodium (COLACE) 100 MG capsule Take 1 Cap by mouth 2 times daily as needed for Constipation 60 Cap 1 6 Active NIFEdipine CR 24hr (ADALAT CC) 60 MG tablet Take 1 Tab by mouth once daily Take on an empty stomach. 90 Tab 2 6 Active Active Problems Problem Noted Date Diagnosed Date Post-term , 40-42 weeks of gestation Decreased movement Vaginal delivery care following vaginal delivery Gestational HTN Immunizations Immunization Administration Dates Next Due INFLUENZA VACCINE, QUADR. 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 Gender Identity Not on file Sexual Orientation Not on file Last Filed Vital Signs Vital Sign Reading Time Taken Comments Blood Pressure 140/60 08/26/2016 9:35 AM CDT Pulse 104 08/26/2016 8:10 AM CDT Temperature 36.7 C (98 F) 08/26/2016 8:10 AM CDT Respiratory Rate 16 08/26/2016 6:50 AM CDT Oxygen Saturation 100% 08/26/2016 8:10 AM CDT Inhaled Oxygen Concentration - - Weight 100.7 kg (222 lb) 08/22/2016 5:09 PM CDT Height 165.1 cm (5' 5 ) 08/22/2016 5:09 PM CDT Body Mass Index 36.94 08/22/2016 5:09 PM CDT Plan of Treatment Health Maintenance Due Date Last Done Comments HIV SCREENING 2010 HEPATITIS C SCREENING 06/27/2013 HEPATITIS B VACCINE (1 of 3 - 19+ 3-dose series) 2014 COVID-19 VACCINE (2023-2 5 season) 2024 DEPRESSION SCREENING 11/18/2024 INFLUENZA VACCINE (Season Ended) 2025 08/24/20 16 DTAP/TDAP/TD VACCINES (2 - T d or Tdap) 05/23/2026 05/23/2016 ZOSTER VACCINE (1 of 2) 2045 HIB VACCINE Aged Out No longer eligi ble based on patient's age to complete this topic HPV VACCINE Aged Out No longer eligi ble based on patient's age to complete this topic MENINGOCOCCAL (Group B) VACC INE SHARED DECISION-MAKING Aged Out No longer eligibl e based on patient's age to complete this topic MENINGOCOCCAL GROUPS A/C/Y/W VACCINE Aged Out No longer eligible b ased on patient's age to complete this topic PNEUMOCOCCAL VACCINE Aged Out No long er eligible based on patient's age to complete this topic Insurance [facility] MEDICA[facility] - [place] [facility] Advance Directives * Full Code (Latest Code Status on File) Date Activated Date Inactivated Comments 08/22/2016 6:42 PM 08/26/2016 1:13 PM Care Teams Mouse Breeder Relationship Specialty Start Date End Date [facility] [address] [place] [address] PCP - General 01/26/19
--- OUTSIDE RECORDS SUMMARY | 2025-03-04 08:50 | XMS_ITS | Clinical Summary ---
Author Organization [facility] Address [address] [place] [address] Care Team Providers Care Inventory Specialist Name Role Phone Kostas Washington MD Primary Care Provider [phone] Allergies Active Allergy Reactions Criticality Noted Date Comments Fluconazole Swelling High 11/26/2022 Iodinated Contrast Media Stomach upset,Rash Medium Morphine Swelling,Anaphylaxis High 08/06/2020 Oxybutynin Swelling,Anaphylaxis High 07/05/2021 SWOLLEN THROAT Sulfa (Sulfonamide Antibiotics) Unknown 11/10/2018 Medications nitrofurantoin monohydrate (MACROBID) 100 mg capsule Take 1 capsule (100 mg total) by mouth 2 (two) times a day 10 capsule 1 Active Additional Information Patient not taking.Reported on 11/02/2022 acyclovir (ZOVIRAX) 400 mg tablet Take 400 mg by mouth as needed 2 Active valACYclovir (VALTREX) 1 gram tablet Take 1,000 mg by mouth as needed 2 Active ibuprofen (ADVIL,MOTRIN) 600 mg tablet TAKE 1 TABLET BY MOUTH EVERY 6 HOURS NEEDED FOR ABOMINAL CRAMPING/DISCOM FORT 6 Active acetaminophen (TYLENOL) 500 mg tablet Take 1 tablet (500 mg total) by mouth every 6 (six) hours as needed for pain Active albuterol HFA (PROVENTIL HFA,VENTOLIN HFA,PROAIR HFA) 90 mcg/actuation inhaler albuterol sulfate HFA 90 mcg/actuation aerosol inhaler INHALE 2 PUFFS BY MOUTH FOUR TIMES DAILY NEEDED Active ubrogepant (UBRELVY) 50 mg tablet Ubrelvy 50 mg tablet TAKE 1 TABLET BY MOUTH EVERY DAY NEEDED Active amitriptyline (ELAVIL) 10 mg tabletIndication s:Fibromyalgia,I nsomnia Take 1 tablet (10 mg total) by mouth nightly 30 tablet 2 5 Active ergocalciferol (VITAMIN D) 50,000 unit capsuleIndicatio ns:Vitamin D Deficiency Take 1 capsule (50,000 Units total) by mouth once a week 8 capsule 5 Active Active Problems No known active problems Surgical History Surgery Date Site/Laterality Comments ANKLE SURGERY metal in ankle EYE SURGERY right eye ANKLE FRACTURE SURGERY 11/18/2013 - 11/17/2014 Left TUBAL LIGATION 11/18/2020 - 11/17/2021 ENDOMETRIAL ABLATION 11/18/2019 - 11/17/2020 CHOLECYSTECTOMY 11/18/2020 - 11/17/2021 LITHOTRIPSY 11/18/2020 - 11/17/2021 Medical History Medical History Date Comments Hypertension Kidney stone Genital herpes Hydronephrosis Right Obesity Celiac disease Alopecia Family History Medical History Relation Name Comments Asthma Brother Asthma Father COPD Father Diabetes Father Sleep apnea Father Celiac disease Mother Chelita's thyroiditis Mother Hypertension Mother Migraines Mother Thyroid disease Mother Anxiety disorder Sister Relation Name Status Comments Brother Alive Father Alive Mother Alive Sister Alive Social History Tobacco Use Types Packs/Day Years Used Date Smoking Tobacco: Every Day Cigarettes Tobacco Cessation:Ready to Q uit: No; Counseling Given: Not Answered Alcohol Use Standard Drinks/Week Comments Yes 0 (1 standard drink = 0.6 oz pur e alcohol) once in a while AUDIT-C Answer Date Recorded Q1: How often do you have a drink containing alc ohol? Monthly or less 11/30/2024 Q2: How many drinks containi ng alcohol do you have on a typical day when you are drinking? 1 or 2 11/30/2024 Q3: How often do you have si x or more drinks on one occasion? Never 11/30/2024 Comments No Sex and Gender Information Value Date Recorded Sex Assigned at Not on file Legal Sex Female 6:12 AM VENUE COORDINATOR Gender Identity Female 02/23/2022 10:20 PM CDT Sexual Orientation Straight 02/23/2022 10 :20 PM CDT Obstetrics History Last Filed Vital Signs Vital Sign Reading Time Taken Comments Blood Pressure 122/85 11/30/2024 3:18 PM VENUE COORDINATOR Pulse 92 11/30/2024 3:18 PM VENUE COORDINATOR Temperature 37 C (98.6 F) 11/30/2024 3:18 PM VENUE COORDINATOR Respiratory Rate 18 11/30/2024 3:18 PM VENUE COORDINATOR Oxygen Saturation 98% 11/30/2024 3:18 PM VENUE COORDINATOR Inhaled Oxygen Concentration - - Weight 93.2 kg (205 lb 6.4 oz) 11/30/2024 3:18 P M VENUE COORDINATOR Height 165.1 cm (5' 5 ) 08/09/2023 10:38 AM CDT Body Mass Index 34.18 08/09/2023 10:38 AM CDT Plan of Treatment Health Maintenance Due Date Last Done Comments Cervical Cancer Screening 1995 Depression Screening 1995 HPV Vaccines (2 - 2-dose series) 04/30/2008 10/30/20 07 Varicella Vaccines (1 of 2 - 13+ 2-dose series) 2008 Hepatitis B Screening 2013 Regular Well Visit/Exam 18-64 2013 Pneumococcal vaccine <65 (1 of 2 - PCV) 2014 Influenza Vaccine (Season Ended) 2025 08/24/2016, 09/17/2011, 10/30/2007 DTaP/Tdap/Td Vaccine (4 - Td or Tdap) 12/18/2029 12/18/2019, 05/23/2016, 10/30/2007 Hepatitis C Screening Completed 02/14/2022 Procedures Procedure Name Priority Date/Time Associated Diagnosis Comments HEPATITIS PANEL, ACUTE Routine 02/14/2022 9:10 AM CDT Arthralgia, unspecified joint from Last 3 Months or Most Recently Relevant to Health Maintenance Results * Hepatitis panel, acute (02/14/2022 9:10 AM CDT) Hep A IgM Nonreactive Nonreactive [facility] Comment: Interpretive Data: If Hep A IgM Ab is reported as Equivocal, a new sample should be drawn in two weeks for testing. Current interpretive data was last revised on 20. Hep B core IgM Nonreactive Nonreactive [facility] Comment: Interpretive Data If HepB Core IgM Ab is reported as Equivocal, a new sample should be drawn in two weeks for testing. Current interpretive data was last revised on 20. Hep C Ab Nonreactive Nonreactive [facility] Comment:Antibodies to HCV no t detected. Does NOT exclude the possibility of recent exposure to HCV. HepBsAg Nonreactive Nonreactive [facility] Blood 02/14/2022 9:10 AM CDT 02/14/2022 11:12 AM CDT Jeannine Cheema NP LAB MICROBIOLOGY - GENERAL ORDERABLES Edited Result - Final [facility] Department [place] [address] from Last 3 Months or Most Recently Relevant to Health Maintenance [facility] Care Teams Inventory Specialist Relationship Specialty Start Date End Date Kostas Washington MD PCP - General Internal Medicine 02/14/22
--- OUTSIDE RECORDS SUMMARY | 2025-03-04 08:50 | XMS_ITS | Referral Summary ---
Author Organization [facility] Address [address] [place] [address] Care Team Providers Care Set Up Mechanic Name Role Phone Kostas Washington MD Primary Care Provider [phone] Allergies Active Allergy Reactions Criticality Noted Date [...] total) by mouth nightly 30 tablet 2 Active ergocalciferol (VITAMIN D) 50,000 unit capsuleIndicatio ns:Vitamin D Deficiency Take 1 capsule (50,000 Units total) by mouth once a week 8 capsule Active Active Problems No known active problems Social History Tobacco Use Types Packs/Day Years [...] on file Legal Sex Female 6:12 AM ORE TESTER Gender Identity Female 02/23/2022 10:20 PM CDT Sexual Orientation Straight 02/23/2022 10 :20 PM CDT Last Filed Vital Signs Vital Sign Reading Time Taken Comments Blood Pressure 122/85 11/30/2024 3:18 PM ORE TESTER Pulse 92 11/30/2024 3:18 PM ORE TESTER Temperature 37 C (98.6 F) 11/30/2024 3:18 PM ORE TESTER Respiratory Rate 18 11/30/2024 3:18 PM ORE TESTER Oxygen Saturation 98% 11/30/2024 3:18 PM ORE TESTER Inhaled Oxygen Concentration - - Weight 93.2 kg (205 lb 6.4 oz) 11/30/2024 3:18 P M ORE TESTER Height 165.1 cm (5' 5 ) 08/09/2023 10:38 AM CDT Body Mass Index 34.18 08/09/2023 10:38 AM CDT Plan of Treatment Not on file Procedures Procedure Name Priority Date/Time Associated Diagnosis Comments HEPATITIS PANEL, ACUTE Routine 02/14/2022 9:10 AM CDT Arthralgia, unspecified joint from Last 3 Months or Most Recently Relevant to Health Maintenance Results * Hepatitis panel, acute (02/14/2022 9:10 AM CDT) Hep A IgM Nonreactive Nonreactive [facility] Comment: Interpretive Data: If Hep A IgM Ab is reported as Equivocal, a new sample should be drawn in two weeks for testing. Current interpretive data was last revised on 20. Hep B core IgM Nonreactive Nonreactive [facility] Comment: Interpretive Data If HepB Core IgM Ab is reported as Equivocal, a new sample should be drawn in two weeks for testing. Current interpretive data was last revised on 20. Hep C Ab Nonreactive Nonreactive [facility] Comment:Antibodies to HCV no t detected. Does NOT exclude the possibility of recent exposure to HCV. HepBsAg Nonreactive Nonreactive [facility] Blood 02/14/2022 9:10 AM CDT 02/14/2022 11:12 AM CDT Jeannine Cheema NP LAB MICROBIOLOGY - GENERAL ORDERABLES Edited Result - Final [facility] Department [place] [address] from Last 3 Months or Most Recently Relevant to Health Maintenance Insurance [facility] [place] [address] Care Teams Set Up Mechanic Relationship Specialty Start Date End Date Kostas Washington MD PCP - General Internal Medicine 02/14/22
--- OUTSIDE RECORDS SUMMARY | 2025-03-04 08:50 | XMS_ITS | Encounter Summary ---
Author Organization [facility] Address [address] [place] [address] Phone Care Team Providers Care Onion Tier Name Role Phone Kostas Washington MD Primary Care Provider [phone] Eric Hooper MD Unavailable [phone] Reason for Visit * Reason Comments Medication Refill Encounter Details Date Type Department Care Team (Late st Contact Info) Description 04/06/2024 Refill [facility] - Neurology - [place] [address] [place] [id number] Linda Sanford APRN, INTERNET MERCHANT [address] [place] [address] Medication Refill Social History Tobacco Use Types Packs/Day Years Used Date Smoking Tobacco: Every Day Cigarettes 2 10 Smokeless Tobacco: Never Alcohol Use Standard Drinks/Week Comments Yes 0 (1 standard drink = 0.6 oz pur e alcohol) RARELY Sexually Active Control Partners Comments Yes Surgical TUBAL LIGATION Comments No Sex and Gender Information Value Date Recorded Sex Assigned at Not on file 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 Requested Prescriptions Pending Prescriptions Disp Refills amitriptyline (ELAVIL) 10 MG Tablet [Pharmacy Med Name: AMITRIPTYLINE 10MG TABLETS] 90 Tablet 0 Sig: TAKE 1 TABLET BY MOUTH EVERY NIGHT Not Delegated - Tricyclic Agents Protocol Failed - 04/06/2024 6:14 PM Failed - This refill cannot be delegated Passed - Visit with relevant provider in past 12 months or upcoming 90 days Recent Visits Date Type Provider Dept 12/31/23 Office Visit Linda Sanford APRN, [facility] Neu[facility] [place] [address] Showing recent visits within past 365 days and meeting all other requirements Future Appointments Date Type Provider Dept 06/11/24 Appointment Linda Sanford APRN, [facility]rology [place] Showing future appointments within next 90 days and meeting all other requirements documented in this encounter Plan of Treatment Not on file documented as of this encounter Visit Diagnoses Diagnosis Chronic migraine with aura without status migrainosus, not intractable documented in this encounter Care Teams Onion Tier Relationship Specialty Start Date End Date Kostas Washington MD PCP - General Internal Medicine 06/07/21 Eric Hooper MD Consulting Physician Gastroenterology 10/29/23 02/04/25 documented as of this encounter
[2025-03-04 08:55] VITALS: BP 117/87; PULSE 90; RESP 16; TEMP 37.2; O2SAT 97; BMI 35.4
--- NOTE | 2025-03-04 09:51 | WPDANESEPPF ---
Anes - Initial Pre Proc Eval Procedure: Operation Date: 03/04/25 10:00 Proposed Procedures p Excision Bone Cyst Right Ring Finger Distal Phalanx with Bone Graft, Possible Pinning - Americo Johnson MD Date/Time: 03/04/25 09:51 Surgeon: Americo Johnson MD Pre Op Diagnosis: Nondisplaced Fracture Distal Phalan RT Ring Fing. Patient Data Age: 29 Gender: F Height: 1.65 m Weight: 96.4 kg Last Vital Signs Temp 37.2 C 03/04/25 08:55 Pulse 90 03/04/25 08:55 Resp 16 03/04/25 08:55 BP 117/87 03/04/25 08:55 Pulse Ox 97 03/04/25 08:55 O2 Del Method Room Air 03/04/25 08:55 Allergies Allergy/AdvReac Type Severity Reaction Status Date / Time fluconazole (From Diflucan) Allergy Intermediate sores in Verified 03/04/25 08:40 mouth iohexol (From contrast - CT, Allergy Intermediate Abdominal Verified 03/04/25 08:40 X-RAY) Pain morphine Allergy Unknown Rash,ITCHIN Verified 03/04/25 08:40 G PURPLE GRAPES Allergy Unknown SWELLING, Uncoded 03/04/25 08:40 RASH Home Medications ?Medication ?Instructions ?Recorded ?Confirmed ?Type No Home Medications 02/11/25 02/11/25 History cephalexin 500 mg capsule 500 mg PO Q8H #21 caps 03/04/25 Rx hydrocodone 5 mg-acetaminophen 325 1 tablet PO Q6H PRN pain #12 tabs 03/04/25 Rx mg tablet Patient hx anesthesia problems: none Family hx anesthesia problems: none Results Review: All pre-operative results and documents have been reviewed as part of the pre-operative evaluation. [facility] Past Medical History Medical History Abnormal uterine bleeding (AUB) Kidney stone Vaginal irritation Colonoscopy planned HSV-2 infection Lupus (~11/18/21) Encounter for screening examination for sexually transmitted disease Depression Bipolar disorder Asthma Anxiety Surgical History Surgical History History of endometrial ablation History of tubal ligation History of cholecystectomy History of ankle surgery lt ankle Hx of eye surgery Family History Family History Grandparent Diabetes mellitus Cerebrovascular accident Other Diabetes mellitus Mother Thyroid disease Social History Social History Smoking packs per day: 1 Smoking cigarettes per day: 20.0 Years smoked: 8 Smoking pack-years: 8.00 Smoking status: Current every day smoker Tobacco type: cigarettes Second hand tobacco smoke exposure: No Alcohol intake: current Alcohol use details: rarely Substance use: never Substance use type: does not use Current Housing: Decline to Answer Concerned About Future Housing: Decline to Answer Difficulty Paying Gas/Electric Bills: Decline to Answer Difficulty Paying for Meds: Decline to Answer Currently Unemployed: Decline to Answer Education: Decline to Answer Difficulty w/ Childcare or Family Care: Decline to Answer Living arrangements: with family Occupation/Education: unemployed Gender identity (if verbalized by the patient): Female Sexual Orientation (if Verbalized by the Patient): Straight or Heterosexual Spiritual care concerns: No Anes - Eval Final PreProcedure Day of Procedure 03/04/25 09:51 Patient weight: obese Heart: regular rate and rhythm Lungs: decreased breath sounds Airway: Mallampati scale class II Neurological: alert and oriented Last oral intake: >/= 8 hours ASA classification: III Emergent: no Anesthetic plan: proceed Anesthesia type and monitoring: general GIVS and standard monitoring Results Review: All pre-operative results and documents have been reviewed as part of the pre-operative evaluation. Informed Consent: The patient's anesthetic plan and its attendant risks and benefits were discussed with the patient/family/POA. Questions were solicited and answers provided to the satisfaction of the patient/family/POA.
[2025-03-04] MEDS: LACTATED RINGERS 1,000 ML 30 ML IV CONT (09:54)
[2025-03-04] MEDS: ceFAZolin SODIUM 2 GM/20 ML SW SYRINGE IV PUSH (10:05)
[2025-03-04] MEDS: BUPivacaine HCL 0.5% 10 ML AMP 3 ML INFILTRATE (10:12)
[2025-03-04] MEDS: LIDOCAINE 1% LOCAL INJ 10 ML VIAL 3 ML INFILTRATE (10:12)
[2025-03-04] MEDS: BACITRACIN ZINC OINTMENT 0.9 GRAM PACKET 1 PACKET TOPICAL (11:07)
[2025-03-04 11:11] VITALS: BP 130/77; PULSE 74; RESP 14; TEMP 36.4; O2SAT 100
--- NOTE | 2025-03-04 11:25 | WPDANESPN ---
Anes - Prog Note Post-Op Date/Time: 03/04/25 11:25 Cardiovascular status: normal Respiratory status: normal Airway patency: baseline Mental status: baseline Post-Op hydration status: normal Vital Signs: Last Vital Signs Temp 36.4 C 03/04/25 11:11 Pulse 74 03/04/25 11:11 Resp 14 03/04/25 11:11 BP 130/77 03/04/25 11:11 Pulse Ox 100 03/04/25 11:11 O2 Del Method Room Air 03/04/25 11:11 Pain Score (VAS): 0 I/O: Intake & Output 03/03/25 03/04/25 03/04/25 23:59 07:59 15:59 Intake Total 0 Balance 0 Patient Feedback: Patient satisfied with anesthetic care.
[2025-03-04 11:35] VITALS: BP 142/75; PULSE 65; RESP 16; O2SAT 100
--- NOTE | 2025-03-04 11:37 | SUR.PHASEII ---
1135; REPORT GIVEN TO BENJY TEJEDA RN
[2025-03-04 11:45] VITALS: BP 133/85; PULSE 69; RESP 15; O2SAT 100
[2025-03-04 11:55] VITALS: BP 128/86; PULSE 72; RESP 15; O2SAT 100
== END 2025-03-04 12:04 | disposition home or self-care (01) ==
PROVIDERS: PCP Internal Medicine; Visit Provider Plastic Surgery
PROC: (CPT 26210; principal; 2025-03-04 10:00)
DX: S62.664A Nondisplaced fracture of distal phalanx of right ring finger, initial encounter for closed fracture (principal); M85.641 Other cyst of bone, right hand; W22.8XXA Striking against or struck by other objects, initial encounter
CPT/HCPCS: 26210; 26765; 99199

== ENCOUNTER 2025-03-16 16:37 | Outpatient (CLI) | payer OTHER, SELFPAY ==
--- NOTE | ~2025-03-16 | XR_ITS ---
PA, oblique, and lateral views of the right fourth finger CLINICAL HISTORY: Fracture COMPARISON: 02/15/2025 FINDINGS: Status post interval with a pin fixation across the fourth DIP joint. Oblique fracture of t he base of the fourth distal phalanx is again present. Remaining osseous structures and joint spaces are intact. IMPRESSION: Status post interval pin fixation across the fourth DIP joint with fracture again noted at the base o f the fourth distal findings. Reviewed, dictated and finalized at location M. IMPRESSION: Status post interval pin fixation across the fourth DIP joint with fracture aga in noted at the base of the fourth distal findings.
--- OUTSIDE RECORDS SUMMARY | 2025-03-16 17:34 | XMS_ITS ---
Author Organization [facility] Address [address] [place] [address] Phone Care Team Providers Care Ethnoarchaeologist Name Role Phone Kostas Washington MD Primary Care Provider [phone] [facility] Status:Enrolled (Active) Start date:10/22/2024 Enrollment date:10/22/2024 Related social drivers of health:Intimate Partner Violence, Social Connections, Alcohol Use, Tobacco Use, Financial Resource Strain,Depression, Stress, Physical Activity, Food Insecurity, Transportation Needs, Housing Stability, Utilities Continued Care and Services Coordination
--- OUTSIDE RECORDS SUMMARY | 2025-03-16 17:35 | XMS_ITS | Clinical Summary ---
Author Organization [facility] Address [address] [place] [address] Phone Care Team Providers Care Cutting Machine Operator Helper Name Role Phone Kostas Washington MD Primary Care Provider [phone] Allergies Active Allergy Reactions Criticality Noted Date [...] on file Legal Sex Female 7:21 PM AIRCRAFT PILOT Gender Identity Not on file Sexual Orientation Not on file Last Filed Vital Signs Vital Sign Reading Time Taken Comments Blood Pressure 103/56 11/19/2024 4:15 AM AIRCRAFT PILOT Pulse 59 11/19/2024 4:15 AM AIRCRAFT PILOT Temperature 36.9 C (98.5 F) 11/19/2024 1:28 AM AIRCRAFT PILOT Respiratory Rate 19 11/19/2024 1:28 AM AIRCRAFT PILOT Oxygen Saturation 100% 11/19/2024 4:15 AM AIRCRAFT PILOT Inhaled Oxygen Concentration - - Weight 91.2 kg (201 lb 1 oz) 11/19/2024 1:28 AM AIRCRAFT PILOT Height 165.1 cm (5' 5 ) 11/19/2024 1:28 AM AIRCRAFT PILOT Body Mass Index 33.46 11/19/2024 1:28 AM AIRCRAFT PILOT Plan of Treatment Health Maintenance Due Date [...] this topic Medical Devices Implanted Type Area Supervisor Filling And Packing Device Identifier Shelf Expiration Date Model / Serial / Lot Stent Ureteral 6fr 2.1fr 26cm 2 Pigtail Curve 2 Durometer Taper Tip Loprfl Graduated Polaris Ultra - [id number] Implanted:Qty: 1 on 06/09/2021 by Juan [facility]ancilla MD at [facility] IMPLANT [place] 03/30/2024 [id number] / [id number] / [id number] Description:STRING OFF Insurance MEDICAID [employer] Care Teams Cutting Machine Operator Helper Relationship Specialty Start Date End Date Kostas Washington MD PCP - General Internal Medicine 06/07/21
--- OUTSIDE RECORDS SUMMARY | 2025-03-16 17:35 | XMS_ITS | Continuity of Care Document ---
Author Organization [facility] Address [address] [place] [address] Phone Care Team Providers Care Cement Paver Name Role Phone Alvaro Soriano DO Unavailable Unavailable Advance Directives Directive Yes / No Effective Date File Name No Information Encounters Encounter Description Practice Location Reason(s) For Visit Diagnoses Date Provider Providers Copied on Encounter [facility], [address], [place], [place], [address], tel:[phone] [facility] [place] No Information Bo Abbott. [address] [place], [address], . tel: [phone] Family History Family Member Type Diagnosis Age At Onset No Information Payers Payer name Insurance type Covered constitution party ID Authoriza tion(s) Medicaid [facility] [id number] Social History Type Description Quantity Date Captured [...]
--- OUTSIDE RECORDS SUMMARY | 2025-03-16 17:35 | XMS_ITS | Encounter Summary ---
Author Organization [facility] Address [address] [place] [address] Phone Care Team Providers Care Finish Rolls Operator Name Role Phone Kostas Washington MD Primary Care Provider [phone] Kostas Washington MD Primary Care Provider [phone] Eric Hooper MD Unavailable [phone] Reason for Referral * Radiology Services (Routine) - Closed Specialty Diagnoses / Procedures Referred By Contac t Referred To Contact Radiology Diagnoses Pre-op testing Procedures EKG 12 LEAD Juan Mancilla MD Referral ID Status Reason Start Date Expiration Date Visits Re quested Visits Authorized [id number] Closed 06/06/2021 1 1 Encounter Details Date Type Department Care Team (Latest Contact Info) Description 06/06/2021 Transcribe Orders [facility] Preop/Pacu II [address] [place] [id number] Juan Mancilla MD Pre-op testing (Primary Dx) [...] on file 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 Gender Identity Not on file Sexual Orientation [...] QTC CALCULATION 445 ms EXTERNAL EKG P [place] 55 degrees EXTERNAL EKG R [place] 90 degrees EXTERNAL EKG T [place] 22 degrees EXTERNAL EKG 06/07/2021 9:18 AM CDT Impressions EXTERNAL EKG - 06/08/2021 9:13 AM CDT Sinus tachycardia Rightward axis Comparison Summary: No serial comparison made Summary: Borderline ECG Confirmed by Osei Norris [id number] on 06/08/2021 9:13:35 AM Narrative Procedure Note Leslie Franz MD - 06/08/2021 IMPRESSION: Sinus tachycardia Rightward axis Comparison Summary: No serial comparison made Summary: Borderline ECG Confirmed by Osei Norris [id number] on 06/08/2021 9:13:35 AM [facility] Charo ROJAS IMG ECG ORDERABLES Final Result EXTERNAL EKG * SARS-COV-2 BY MOLECULAR (06/07/2021 9:06 AM CDT) SARSCOV2 NOT DETECTED (Referenc e Range for this test is Not Detected) [facility] ID NOW 06/07/2021 9:29 AM CDT [facility] Comment:This test was perfor med by a MOLECULAR, NON-PCR method Other NASOPHARYNGEAL STRUCTURE / Unknown Non-Phlebotomy Collection / Unknown 06/07/2021 9:06 AM CDT 06/07/2021 9:11 AM CDT Narrative [facility] - 06/07/2021 9:29 AM [...] information for Clinicians can be found at: https://www.fda.gov/media/807940/download Additional information for Patients can be found at: https://www.fda.gov/media/548971/download Juan Mancilla MD MICROBIOLOGY - GENERAL ORDERABLE S Final Result [facility] [place] [address] documented in this encounter Visit Diagnoses Diagnosis Pre-op testing- Primary Preoperative examination, unspecified Pre-op testing Preoperative examination, unspecified documented in this encounter Care Teams Finish Rolls Operator Relationship Specialty Start Date End Date Kostas Washington MD PCP - General Internal Medicine 11/10/18 06/06/21 Kostas Washington MD PCP - General Internal Medicine 06/07/21 Eric Hooper MD Consulting Physician Gastroenterology 10/29/23 02/04/25 documented as of this encounter
--- OUTSIDE RECORDS SUMMARY | 2025-03-16 17:35 | XMS_ITS | Data Portability ---
Author Organization [place] [facility], Main Office Address [address] [place] [address] Care Team Providers Care Viscera Washer Name Role Phone RASHAUN WASHINGTON Primary Care Provider RASHAUN WASHINGTON Referring Provider AMANDA HENDERSON Stitch Marker Unavailable Assessment Encounter Date Assessment Date Assessment [...] Lab CMP, serum or plasma [address] (Lab), [address] [place] [address], [address], 3 12:35:55 CBC w/ auto diff 2022 023 [facility] (Lab), [address] [place] [address], [address], 3 19:16:03 PT/PTT, plasma 2022 023 [facility] (Lab), [address] [place] [address], [address], 3 00:19:18 CMP, serum or plasma 2022 023 [facility] (Lab), [address] [place] [address], [address], 3 19:30:13 TSH, serum or plasma 2022 023 [facility] Not available 19:58:13 lipid panel, serum 2022 023 [facility] (Lab), [address] [place] [address], [address], 3 19:30:18 Referral physical therapist referral - Please contact patient to schedule 2023 024 [email or web address] [facility], [address], [address], [place], [address], 13:25:35 Procedures injection/a spiration joint/bursa (PROC) 2023 024 [email or web address] In-Office Order, Internal Use Only DO Not Attach Compendium DO Not Attach Compendium, Do Not Delete/merge, [id number] 12:51:32 Surgeries None recorded. Imaging None recorded. Medication Orders Marcaine (PF) 0.5 % (5 mg/mL) injection solution 2023 024 [email or web address][id number], [address], [place], [place], [id number], 4 12:51:33 Kenalog 10 mg/mL suspension for injection [address] [facility]68343, [address], [place], [place], [id number], 4 12:51:32 prednisone 10 mg tablets in a dose pack 2023 024 TRINA [facility] #58824, [address], [place], [place], [id number], 4 12:51:42 ibuprofen 800 mg tablet 2022 023 [email or web address] [facility] #27336, [address], [place], [place], [id number], 4 12:05:45 cyclobenzap rine 5 mg tablet 2022 023 [email or web address] [facility] #82760, [address], [place], [place], [id number], 4 12:05:14 Patient TargetsNo targets recorded. Patient [...] 4.6 x10'3 /uL 4.2-10 .8 Not Available [facility] (Lab) [address] [place], [address], 06/18/2023 19:16:02 06/18/2006/18/2023 CBC/C OMPLE TE BLD COUNT W/DIF F red blood cells 4.28 x10'6 /uL 3.80-5 .20 Not Available [facility] (Lab) [address] [place], [address], 06/18/2023 19:16:02 06/18/2006/18/2023 CBC/C OMPLE TE BLD COUNT W/DIF F hemoglobin 13.0 g/dL 12.0-1 5.6 Not Available [facility] (Lab) [address] [place], [address], 06/18/2023 19:16:02 06/18/2006/18/2023 CBC/C OMPLE TE BLD COUNT W/DIF F hematocrit 39.6 % 35.7-4 5.7 Not Available [facility] (Lab) [address] [place], [address], 06/18/2023 19:16:02 06/18/2006/18/2023 CBC/C OMPLE TE BLD COUNT W/DIF F mean red cell volume 92.5 fL 82.0-9 9.0 Not Available [facility] (Lab) [address] [place], [address], 06/18/2023 19:16:02 06/18/20 23 06/18/2023 CBC/C OMPLE TE BLD COUNT W/DIF F mean red cell hemoglobin 30.4 pg 27.0-3 3.0 Not Available [facility] (Lab) [address] [place], [address], 06/18/2023 19:16:02 06/18/20 23 06/18/2023 CBC/C OMPLE TE BLD COUNT W/DIF F mean RBC HGB concentratio n 32.8 g/dL 31.0-3 6.0 Not Available [facility] (Lab) [address] [place], [address], 06/18/2023 19:16:02 06/18/2006/18/2023 CBC/C OMPLE TE BLD COUNT W/DIF F red cell distribution width 12.6 % 11.8-1 5.5 Not Available [facility] (Lab) [address] [place], [address], 06/18/2023 19:16:02 06/18/2006/18/2023 CBC/C OMPLE TE BLD COUNT W/DIF F platelets 190 x10'3 /uL 150-40 0 Not Available [facility] (Lab) [address] [place], [address], 06/18/2023 19:16:02 06/18/2006/18/2023 CBC/C OMPLE TE BLD COUNT W/DIF F mean platelet volume 12.6 fL 9.0-12 .4 high Not Available [facility] (Lab) [address] [place], [address], 06/18/2023 19:16:02 06/18/20 23 06/18/2023 CBC/C OMPLE TE BLD COUNT W/DIF F neutrophils 64.1 % 39.0-7 2.0 Not Available [facility] (Lab) [address] [place], [address], 06/18/2023 19:16:02 06/18/2006/18/2023 CBC/C OMPLE TE BLD COUNT W/DIF F lymphocytes 27.1 % 16.0-4 7.0 Not Available [facility] (Lab) [address] [place], [address], 06/18/2023 19:16:02 06/18/2006/18/2023 CBC/C OMPLE TE BLD COUNT W/DIF F monocytes 7.6 % 5.0-12 .0 Not Available [facility] (Lab) [address] [place], [address], 06/18/2023 19:16:02 06/18/2006/18/2023 CBC/C OMPLE TE BLD COUNT W/DIF F eosinophils 0.6 % 1.0-7. 0 low Not Available [facility] (Lab) [address] [place], [address], 06/18/2023 19:16:02 06/18/2006/18/2023 CBC/C OMPLE TE BLD COUNT W/DIF F basophils 0.4 % 0.0-2. 0 Not Available [facility] (Lab) [address] [place], [address], 06/18/2023 19:16:02 06/18/2006/18/2023 CBC/C OMPLE TE BLD COUNT W/DIF F immature granulocytes 0.2 % 0.00-0 .50 Not Available [facility] (Lab) [address] [place], [address], 06/18/2023 19:16:02 06/18/2006/18/2023 CBC/C OMPLE TE BLD COUNT W/DIF F neutrophils, absolute count 2.96 x10'3 /uL 1.5-8. 0 Not Available [facility] (Lab) [address] [place], [address], 06/18/2023 19:16:02 06/18/2006/18/2023 CBC/C OMPLE TE BLD COUNT W/DIF F lymphocytes, absolute count 1.25 x10'3 /uL 1.07-3 .43 Not Available [facility] (Lab) [address] [place], [address], 06/18/2023 19:16:02 06/18/2006/18/2023 CBC/C OMPLE TE BLD COUNT W/DIF F monocytes, absolute count 0.35 x10'3 /uL 0.29-0 .99 Not Available [facility] (Lab) [address] [place], [address], 06/18/2023 19:16:02 06/18/2006/18/2023 CBC/C OMPLE TE BLD COUNT W/DIF F eosinophils, absolute count 0.03 x10'3 /uL 0.02-0 .53 Not Available [facility] (Lab) [address] [place], [address], 06/18/2023 19:16:02 06/18/2006/18/2023 CBC/C OMPLE TE BLD COUNT W/DIF F basophils, absolute count 0.02 x10'3 /uL 0.01-0 .08 Not Available [facility] (Lab) [address] [place], [address], 06/18/2023 19:16:02 06/18/2006/18/2023 CBC/C OMPLE TE BLD COUNT W/DIF F immature granulocytes ,absolute 0.01 x10'3 /uL 0.00-0 .05 Not Available [facility] (Lab) [address] [place], [address], 06/18/2023 19:16:02 06/18/2006/18/2023 CBC/C OMPLE TE BLD COUNT W/DIF F nucleated red blood cells 0.0 % -0 Not Available [facility] (Lab) [address] [place], [address], 06/18/2023 19:16:02 06/18/20 23 06/18/2023 CBC/C OMPLE TE BLD COUNT W/DIF F NRBC# 0.00 x10'3 /uL Not Available [facility] (Lab) [address] [place], [address], 06/18/2023 19:16:02 06/18/20 23 06/18/2023 COMPR EHENS ALLEGRA METAB OLIC PANEL sodium 141 mmol/ L 137-14 5 Not Available [facility] (Lab) [address] [place], [address], 06/18/2023 19:30:13 06/18/20 23 06/18/2023 COMPR EHENS ALLEGRA METAB OLIC PANEL potassium 4.0 mmol/ L 3.5-5. 1 Not Available [facility] (Lab) [address] [place], [address], 06/18/2023 19:30:13 06/18/20 23 06/18/2023 COMPR EHENS ALLEGRA METAB OLIC PANEL chloride 108 mmol/ L 98-107 high Not Available [facility] (Lab) [address] [place], [address], 06/18/2023 19:30:13 06/18/20 23 06/18/2023 COMPR EHENS ALLEGRA METAB OLIC PANEL carbon dioxide 24 mmol/ L 22-30 Not Available [facility] (Lab) [address] [place], [address], 06/18/2023 19:30:13 06/18/20 23 06/18/2023 COMPR EHENS ALLEGRA METAB OLIC PANEL anion gap 13.0 mmol/ L 14-22 low Not Available [facility] (Lab) [address] [place], [address], 06/18/2023 19:30:13 06/18/20 23 06/18/2023 COMPR EHENS ALLEGRA METAB OLIC PANEL glucose 95 mg/dL 70-99 Not Available [facility] (Lab) [address] [place], [address], 06/18/2023 19:30:13 06/18/2006/18/2023 COMPR EHENS ALLEGRA METAB OLIC PANEL BUN 8 mg/dL 8-19 Not Available [facility] (Lab) [address] [place], [address], 06/18/2023 19:30:13 06/18/2006/18/2023 COMPR EHENS ALLEGRA METAB OLIC PANEL creatinine 0.68 mg/dL 0.66-1 .25 Not Available [facility] (Lab) [address] [place], [address], 06/18/2023 19:30:13 06/18/2006/18/2023 COMPR EHENS ALLEGRA METAB OLIC PANEL GFR >60 Refer ence Range : [place] ge GFR Healt hy Adult : >60 [...] calcu lator is avail able on the [facility] websi te: [email or web address] :[email or web address] [email or web address] or Not Available [facility] (Lab) [address] [place], [address], 06/18/2023 19:30:13 06/18/20 23 06/18/2023 COMPR EHENS ALLEGRA METAB OLIC PANEL alkaline phosphatase 58 U/L 38-126 Not Available [facility] (Lab) [address] [place], [address], 06/18/2023 19:30:13 06/18/20 23 06/18/2023 COMPR EHENS ALLEGRA METAB OLIC PANEL alanine aminotransfe rase 15 U/L 0-35 Not Available [facility] (Lab) [address] [place], [address], 06/18/2023 19:30:13 06/18/20 23 06/18/2023 COMPR EHENS ALLEGRA METAB OLIC PANEL aspartate aminotransfe rase 18 U/L 15-37 Not Available [facility] (Lab) [address] [place], [address], 06/18/2023 19:30:13 06/18/20 23 06/18/2023 COMPR EHENS ALLEGRA METAB OLIC PANEL bilirubin, total 0.30 mg/dL 0.20-1 .30 Not Available [facility] (Lab) [address] [place], [address], 06/18/2023 19:30:13 06/18/20 23 06/18/2023 COMPR EHENS ALLEGRA METAB OLIC PANEL calcium 9.4 mg/dL 8.4-10 .2 Not Available [facility] (Lab) [address] [place], [address], 06/18/2023 19:30:13 06/18/20 23 06/18/2023 COMPR EHENS ALLEGRA METAB OLIC PANEL total protein 7.5 g/dL 6.3-8. 2 Not Available [facility] (Lab) [address] [place], [address], 06/18/2023 19:30:13 06/18/20 23 06/18/2023 COMPR EHENS ALLEGRA METAB OLIC PANEL albumin 4.3 g/dL 3.4-5. 0 Not Available [facility] (Lab) [address] [place], [address], 06/18/2023 19:30:13 06/18/20 23 06/18/2023 COMPR EHENS ALLEGRA METAB OLIC PANEL globulin 3.2 g/dL 2.6-4. 2 Not Available [facility] (Lab) [address] [place], [address], 06/18/2023 19:30:13 06/18/20 23 06/18/2023 COMPR EHENS ALLEGRA METAB OLIC PANEL A/G ratio 1.3 ratio 1.0-2. 0 Not Available [facility] (Lab) [address] [place], [address], 06/18/2023 19:30:13 06/18/20 23 06/18/2023 LIPID PANEL cholesterol 109 mg/dL 140-19 9 low NIH JORDAN NSUS RECOM MENDA TION FOR NEAL STERO L: ADULT CHILD LOW RISK: <200 <170 BORDE RLINE : <200- 239 ----- HIGH RISK: >240 >200 Not Available [facility] (Lab) [address] [place], [address], 06/18/2023 19:30:18 06/18/2006/18/2023 LIPID PANEL triglyceride s 46 mg/dL 0-150 NIH JORDAN NSUS REPOR T RECOM MENDA TION FOR TRIGL YCERI EDE: ADULT CHILD LOW RISK: <150 ----- BODER LINE: 150-1 99 ----- HIGH RISK: >200 ----- Not Available [facility] (Lab) [address] [place], [address], 06/18/2023 19:30:18 06/18/20 23 06/18/2023 LIPID PANEL HDL cholesterol 39 mg/dL 40- low Not Available [facility] (Lab) [address] [place], [address], 06/18/2023 19:30:18 06/18/20 23 06/18/2023 LIPID PANEL [...] WILL NOT BE REPOR TORY. Not Available [facility] (Lab) [address] [place], [address], 06/18/2023 19:30:18 06/18/2006/18/2023 APTT APTT 30.0 secon ds 23.4-3 1.4 PLEAS E NOTE NEW APTT REFER ENCE RANGE EFFEC TIVE 11/05 . Not Available [facility] (Lab) [address] [facility] [place], [address], 06/18/2023 19:31:28 06/18/2006/18/2023 PROTI ME W/INR protime 10.9 secon ds 9.5-11 .5 Not Available [facility] (Lab) [address] [place], [address], 06/18/2023 19:31:34 06/18/20 23 06/18/2023 PROTI ME [...] HOSPH OLIPI D SYNDR OME. Not Available [facility] (Lab) [address] [place], [address], 06/18/2023 19:31:34 06/18/20 23 06/18/2023 TSH thyroid-stim ulating hormone 0.873 uIU/m L 0.465- 4.680 Not Available [facility] (Lab) [address] [place], [address], 06/18/2023 19:58:13 01/18/20 23 01/17/2023 XR, finge r(s), 2 or more view No observ ation record ed. [address] [place], [address], 01/18/2023 10:29:18 05/26/20 23 05/26/2023 XR, cervi erika spine No observ ation record ed. [email or web address] [facility] [address], [place], [address], 05/30/2023 09:32:47 11/14/20 23 11/13/2023 XR, foot, 3 or more view No observ ation record ed. [email or web address] Not Available 2023 09:16:26 04/21/20 24 04/19/2024 XR, shoul nya, 2 or more view No observ ation record ed. [email or web address] Not Available 02/2024 15:13:56 03/05/20 25 03/05/2025 imagi ng/di agnos tic resul t No observ ation record ed. [email or web address] Americo Johnson MD [address], [place], [address], 03/08/2025 13:59:51 Result Notes None recorded. Problems Name Problem SNOMED Code Status Onset Date Resolution Date Notes Provider Name and Address Organization Details Recorded Time Otalgia of left ear 5472433413 Completed 202105/27/2023 Rosalind modi RMNic meneses, [facility] 3 15:08:50 Pain of bilateral hands 63406474006 214713 Completed 202105/27/2023 Rosalind modi RMNic meneses, [facility] [employer] [facility] 3 15:08:48 Laborator y test result abnormal 379403580 Active 2021 Not Available [facility] 3 19:46:25 Lupus erythemat osus 065770294 Active 2021 Not Available [facility] 3 19:46:25 Headache 62260310 Completed 202105/15/2022 Not Available [facility] 3 19:46:25 Migraine 95518520 Active 2021 Not Available [facility] 3 19:46:25 Celiac disease 479898352 Active 2020 Not Available [facility] 3 19:46:25 Obesity 842389393 Active 2020 Not Available [facility] 3 19:46:25 Nausea 411082091 Completed 202105/15/2022 Not Available [facility] 3 19:46:25 Aphthous ulcer of mouth 892369454 Completed 202105/15/2022 Not Available [facility] 3 19:46:26 Acute urinary tract infection 880916362 Completed 202105/15/2022 Rosalind modi RMA null, [place] [facility] 3 15:08:38 Pain of right knee joint 64202052864 4100 Active 2022 Not Available [facility] 3 19:46:26 Pain of hip region 03336313 Completed 202105/15/2022 Not Available [facility] 3 19:46:26 Upper respirato ry infection 12829910 Active 2021 Not Available [facility] 3 19:46:26 Alopecia 40580572 Active 2021 Not Available [facility] 3 19:46:26 Smoker 80200690 Active 2020 Not Available [facility] 3 19:46:26 99556156 Completed 201812/17/2019 Not Available [facility] 3 19:46:26 Hyperglyc emia 22048873 Active 2020 Not Available [facility] 3 19:46:26 COVID-19 013037784 Completed 202105/27/2023 Rosalind modi RMA null, [place] [facility] 3 15:08:41 Injury of finger 76818577 Active 2022 Sarah Cabrera CMA null, [place] [facility] 3 10:30:18 Pain in right hand 19539886870 9109 Completed 202205/27/2023 Rosalind modi RMA null, [place] [facility] 3 15:08:45 Mass of hand 763445280 Active 2022 Arvind Guevara MD [address] [place] [address], [address] , [place] [facility] 3 09:51:43 Acute urinary tract infection 438249605 Completed 202205/27/2023 Rosalind modi RMA null, [place] [facility] 3 15:08:38 Neck pain 28678936 Active 2022 Rashaun Washington MD [address], [address], [place], [address] , [place] [facility] 3 15:13:57 Hyperlipi demia 12919276 Active 2022 Rashaun Washington MD [address], [address], [place], [address] , [place] [facility] 3 15:51:16 Multiple bruising 546352907 Active 2022 Rashaun Washington MD [address], [address], [place], [address] , [place] [facility] 3 15:51:39 Easy bruising 608555361 Active 2022 Rashaun Washington MD [address], [address], [place], [address] , [facility] 3 15:51:58 Weight loss 83233361 Active 2022 Rashaun Washington MD [address], [address], [place], [address] , [facility] 3 15:52:46 Hypocalce ashleigh 9143149 Active 2022 Rashaun Washington MD [address], [address], [place], [address] , [facility] 3 10:12:38 Cough 43843565 Active 2022 Rama Irene LPN null, [place] [facility] 3 13:05:48 Pain of right shoulder joint 18218046893 880751 Active 2023 KELI Meyers, [place] [facility] 4 12:07:44 Right rotator cuff strain Active 2023 RENALDO Washburn [address], [address], [place], [address] , [place] [facility] [employer] 12:52:20 Contusion of right shoulder 32146958431 156596 Active 2023 RENALDO Washburn [address] [facility] [facility] [address], [place], [address] , [facility] [employer] 12:52:27 Notes:Some problems listed i n Documents: #[id number], #[id number] could not be added to this patient's chart. Please review these documents and add these problems to the patient's chart manually as needed. Problem Notes None recorded. Procedures Surgical History Date Name Laterality Status Provider Name and Address Organization Details Recorded Time 03/21/20 [employer]PER[employer] Surgery completed Not Available [facility] 01/17/20 19:45:31 03/13/20 endometrial biopsy completed Not Available [facility] 01/16/2023 19:45:31 03/08/20 21 Date of Last Pap Smear completed Not Available [facility] 01/16/2023 19:45:30 04/12/20 20 laparoscopic salpingectomy completed Not Available [facility] 01/16/2023 19:45:31 03/18/20 20 [employer] Surgery completed Not Available [facility] 01/17/20 19:45:31 Eye Surgery completed Not Available [facility] 01/16/2023 19:45:31 Ankle arthroscopy/surge ry completed Not Available [facility] 01/16/2023 19:45:31 Imaging Results Imaging Date Name Status LastModified by Organiz ation Details LastModified Time 01/17/2023 XR, finger(s), 2 or more view completed [address] [place], [address], 01/18/2023 10:29:18 05/26/2023 [email or web address] [address], [place], [address], 05/30/2023 09:32:47 11/13/2023 XR, foot, 3 or more view completed [email or web address] Information not available 11/27/2023 09:16:26 04/19/2024 XR, shoulder, 2 or more view completed [email or web address] Information not available 04/21/2024 15:13:56 03/05/2025 imaging/diagn ostic result completed [email or web address] Americo Johnson MD [address] [facility] [address], [place], [address], 03/08/2025 13:59:51 Procedure Notes None recorded. Medical Equipment None Reported. Allergies Allergen ID Allergen Name Allergen Category Reaction Reaction Severity Criticality Documentation Date Start Date Code Code System Note Provider Name and Address Organization Details Recorded Time 70025 oxybutyni n medicatio n anaphylax is Not available Not available 01/16/2023 15100 RxNorm Not Available [facility] 3 19:47:43 21944 morphine medicatio n anaphylax is Not available Not available 01/16/2023 7052 RxNorm Not Available [facility] 3 19:47:43 44957 Iodinated contrast media (substanc e) medicatio n rash Not available Not available 01/16/2023 20162 2004 SNOMED Not Available [facility] 3 19:47:43 04810 fluconazo le medicatio n swelling Not available Not available 01/16/2023 4450 RxNorm Not Available [facility] 3 19:47:43 40103 hydrocodo ne Not available rash severe Not available 01/16/2023 5489 RxNorm Not Available [facility] 3 19:47:43 Medications Name Sig Start Date [...] Not Available prednisone 10 mg tablet take 3g3qfvr, 6g6iorr, 0k9hkex active Not Available Not Available No t [...] 20 mg by injection route. 2023 active [facility]: 0003- 0494- 20 Not Available Not Available [...] completed Not Available Not Available Not Available [facility] 19 (with docusate) 29 mg iron-1 mg-25 [...] completed Not Available Not Available Not Available [facility] 19 29 mg iron-1 mg tablet TK [...] Updated DateTime 01/22/2023 166.37 cm 36.1 kg/m2 72875.32 g Mary Jane Castro [place] [employer] [facility] 01/22/2023 09:26:14 Date Recorded Body height Body mass index (BMI) Body weight Body temperature Heart rate Oxygen saturation Oxygen saturation in Arterial blood by Pulse oximetry Systolic blood pressure Diastolic blood pressure Provider Name and Address Organization Details Last Updated DateTime 3 166.37 cm 35.2 kg/m2 31897.3 6 g 97.7 [degF] 110 /min 98 % 98 % 126 mm[Hg] 72 mm[Hg] Rosalind rendon Nic [place] [employer] [facility] 3 15:05:11 Date Recorded Body height Body mass index (BMI) Body weight Body temperature Heart rate Oxygen saturation Oxygen saturation in Arterial blood by Pulse oximetry Systolic blood pressure Diastolic blood pressure Provider Name and Address Organization Details Last Updated DateTime 3 166.37 cm 34.4 kg/m2 15021.4 g 98.1 [degF] 98 /min 98 % 98 % 112 mm[Hg] 74 mm[Hg] Sarah Cabrera CMA [place] [employer] [facility] 3 15:36:03 Date Recorded Body height Body mass index (BMI) Body weight Heart rate Oxygen saturation Oxygen saturation in Arterial blood by Pulse oximetry Systolic blood pressure Diastolic blood pressure Provider Name and Address Organization Details Last Updated DateTime 3 166.37 cm 32.4 kg/m2 36089.2 9 g 101 /min 98 % 98 % 124 mm[Hg] 80 mm[Hg] Rosalind rendon Nic [place] [employer] [facility] 3 09:55:33 Date Recorded Body height Body mass index (BMI) Body weight Provider Name and Address Organization Details Last Updated DateTime 04/27/2024 166.37 cm 31.5 kg/m2 30602.74 g Selene Ying Nic [place] [facility] 04/27/2024 12:04:35 Social History Question Answer Notes LastModified by Organizat Resource Interactive Details LastModified Time Tobacco Smoking Status Current Every Day Smoker Not Available [facility] 01/16/2023 19:45:22 What Is Your Level Of Alcohol Consumption? Occasional [id number] Information not available 01/16/2023 What Is Your Level Of Caffeine Consumption? Moderate [id number] Information not available 01/16/2023 In The 14 Days Before Symptom Onset, Have You Had Close Contact With A Laboratory-confir med COVID-19 While That Case Was Ill? No [id number] Information not available 01/16/2023 In The 14 Days Before Symptom Onset, Have You Had Close Contact With A Person Who Is Under Investigation For COVID-19 While That Person Was Ill? No [id number] Information not available 01/16/2023 Do You Or Have You Ever Used E-cigarettes Or Vape? 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 16 [id number] Information not available 01/16/2023 How Much Tobacco Do You Smoke? 0.5 PPD [id number] Information not available 01/16/2023 Sex: Unknown Functional Status Question Answer Note LastModified by Organizat Resource Interactive Details LastModified Time What is your exercise level? Occasional [id number] Information not available 01/16/2023 Mental Status None recorded. Family History Relationship Description Onset Age of this Age Resolved Age Notes LastModified by Organization Details LastModified Time Mother Hypothyroidi sm [email or web address] Not available 2023 11:46:43 Mother Essential hypertension [email or web address] Not available 08/2024 11:46:43 Mother Depressive disorder [id number] Not available 01/16/2023 19:45:32 Maternal Grandmother Diabetes mellitus [id number] Not available 01/16/2023 19:45:32 Medical History Condition Response HERPES Y ANXIETY DISORDER Gynecological History Statement/Question Response Abnormal Pap Y Flow Heavy Date of LMP 08/01/2021 Duration of Flow (days) 6 Date of Last Pap Smear 03/08/2021 Current Control Method Tubal Ligat ion Age at Menarche 11 Breast 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 Obstetrics History GPAL:G 2 P 2 0 0 2 Type Value Full Term 2 Living 2 Total 2 Past Encounters Encounter ID Performer Location Encounter Start Date Encounter Closed Date Diagnosis/Indication Diagnosis SNOMED-CT Code Diagnosis ICD10 Code Diagnosis Note [id number] _ATHENA_M IGRATION_ DEFAULT_1 _1 , 03/08/2021 00:00:00 03/08/2021 12:43:05 [id number] _ATHENA_M IGRATION_ DEFAULT_1 _1 , 03/13/2021 00:00:00 03/13/2021 12:12:10 [id number] _ATHENA_M IGRATION_ DEFAULT_1 _1 , 04/03/2021 00:00:00 04/03/2021 12:28:34 [id number] _ATHENA_M IGRATION_ DEFAULT_1 _1 , 05/18/2021 00:00:00 05/18/2021 17:49:13 [id number] _ATHENA_M IGRATION_ DEFAULT_1 _1 , 06/01/2021 00:00:00 06/01/2021 12:40:10 [id number] [facility] [address] [facility] [address] [place] [address] 06/27/2021 00:00:00 06/27/2021 17:35:55 [id number] _ATHENA_M IGRATION_ DEFAULT_1 _1 , 08/24/2021 00:00:00 08/24/2021 17:08:35 [id number] [facility] [address] [address] 10/23/2021 00:00:00 10/23/2021 16:57:17 [id number] [facility] [address] [address] 12/13/2021 00:00:00 12/13/2021 14:53:31 [id number] [facility] [address] [address] 01/09/2022 00:00:00 01/09/2022 14:30:58 [id number] [facility] [address] [place] [address] 02/16/2022 00:00:00 02/16/2022 11:35:46 [id number] [facility] [address] [place] [address] 05/15/2022 00:00:00 05/15/2022 15:38:05 [id number] [facility] [address] [place] [address] 09/27/2022 00:00:00 09/27/2022 14:52:07 [id number] [facility] [address] [place] [address] 10/15/2022 00:00:00 10/15/2022 12:49:17 [id number] [facility] [address] [place] [address] 12/27/2022 00:00:00 12/27/2022 10:41:25 [id number] Arvind Guevara MD [facility] Ortho [address] [address] 01/22/2023 09:04:45 01/22/2023 10:42:09 Pain in right hand 4510408560 17154 M79.641 Mass of hand 796262035 R 22.31 4th finger [id number] Rashaun Washington MD [facility] [address] [place] [address] 05/27/2023 15:00:14 05/27/2023 15:23:07 Neck pain 64738821 M54.2 ice pack, stretching , ibuprofen [id number] Rashaun Washington MD [facility] [address] [place] [address] 06/18/2023 15:30:53 06/18/2023 15:58:14 Hyperlipidemia 15252348 E78.5 Easy bruising 429833341 R58 Weight loss 28949756 R63 .4 watch [id number] Rashaun Washington MD [facility] [address] [place] [address] 09/06/2023 09:48:33 09/06/2023 10:27:38 Hypocalcemia 5121275 E83.51 labs, not on calcium [id number] RENALDO Washburn [facility] Ortho [address] [place] [address] 04/27/2024 11:44:30 04/27/2024 12:44:23 Pain of right shoulder joint 6103425998 0319085 M25.511 Right rota tor cuff strain 5065551836 4003471 S46.011A Contusion of right shoulder 8673494090 8958589 S40.011A Health Concerns Section Related Observation LastModified by Organization Detai ls LastModified Time None Recorded Concern Status LastModified by Organization Details LastModified Time None Recorded Advance Directives Directive None Recorded Payers Encounter Date Sequence Insurance Name Policy Number Policy Agrawal Covered Member ID Agrawal Member ID Guarantor Name 01/22/2023 1 [facility] ON OR AFTER 05/18/21 (MEDICAID REPLACEMENT - HMO) Sabina Chandler [id number] Sabina Chandler 05/27/2023 1 [facility] ON OR AFTER 05/18/21 (MEDICAID REPLACEMENT - HMO) Sabina Chandler [id number] Sabina Chandler 06/18/2023 1 [facility] ON OR AFTER 05/18/21 (MEDICAID REPLACEMENT - HMO) Sabina Chandler [id number] Sabina Chandler 09/06/2023 1 [facility] ON OR AFTER 05/18/21 (MEDICAID REPLACEMENT - HMO) Sabina Chandler [id number] Sabina Chandler 04/27/2024 [facility] Sabina Chandler Notes Date Note Type Note Provider Name and Address Organization Details Recorded Time 01/22/2023 text/html Patient presents mass right 4th finger. Tender to palpation has pain to manipulation masses in the distal phalanx. She had x-rays done which demonstrate the lytic area. Arvind Guevara MD [address], [place], [address], [employer] 01/22/2023 09:52:05 05/27/2023 text/html She is here [...] is 9/10Pain more on movementsno radiation Rashaun Washington MD [address], [place], [address], [employer] 05/27/2023 15:21:00 06/18/2023 text/html Pt is here today with c/o excessive bruising on her legs and arms. has noticed for a while now, says they are getting bigger and more randomshe is not on any meds like asa or NSAIDSshe has positive NICO but all the other labs were nl, seen rheumatology.she is losing weight, has good appetite Rashaun Washington MD [address], [place], [address], [employer] 06/18/2023 15:53:50 09/06/2023 text/html Went to [facility] a month ago and was told she had low calcium.She has been having Adi horses all over and would like her labs checked againshe went to ER for abd painHer labs were nl 2 months ago MD Jason Izquier[address], [place], [address], [employer] 09/06/2023 10:13:35 04/27/2024 text/html patient is a [...] today with the patient. RENALDO Washburn [address] [facility] [address], [place], [address], [place] - [facility] [employer] 04/27/2024 12:52:56 OBGyn Episode No OBEpisode recorded.
--- OUTSIDE RECORDS SUMMARY | 2025-03-16 17:35 | XMS_ITS | Encounter Summary ---
Author Organization [facility] Address [address] 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 Gender Identity Not on file Sexual Orientation [...] Dept 12/31/23 Office Visit Linda Sanford APRN, [facility] Neu[facility] [place] [address] Showing recent visits within past 365 days and meeting all other requirements Future Appointments Date Type Provider Dept 06/11/24 Appointment Linda Sanford APRN, [facility] [place] Showing future appointments within next 90 days and meeting all other requirements documented in this encounter Plan of Treatment Not on file documented as of this encounter Visit Diagnoses Diagnosis Chronic migraine with aura without status migrainosus, not intractable documented in this encounter Care Teams Gasoline Plant Operator Relationship Specialty Start Date End Date Kostas Washington MD PCP - General Internal Medicine 06/07/21 Eric Hooper MD Consulting Physician Gastroenterology 10/29/23 02/04/25 documented as of this encounter
--- OUTSIDE RECORDS SUMMARY | 2025-03-16 17:35 | XMS_ITS | Clinical Summary ---
Author Organization [facility] Address [address] [place] [address] Care Team Providers Care Website Project Manager Name Role Phone [facility] ([facility]) Primary Care Provi nya Source Comments [facility],non-[facility] region medical center Affiliates and Associated Physician Practices is amultiple site organization consisting of ambulatory clinics and hospital sitesin [place], [place], [place] and [place]. This disclosure is being madepursuant to the Care Everywhere program and may not contain all information available regarding this patient. 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 Gender Identity Not on file Sexual Orientation [...] Health Maintenance Due Date Last Done Comments PAP SMEAR 1995 HIV SCREENING 2010 HEPATITIS C SCREENING 06/27/2013 HEPATITIS B VACCINE (1 of 3 - 19+ 3-dose series) 2014 COVID-19 VACCINE ( - 2023-2 5 season) 2024 DEPRESSION SCREENING 11/18/2024 INFLUENZA [...] patient's age to complete this topic Insurance [facility] [place]ID [place] [facility] SELF PAY NO INSURANCE Member Subscriber Plan / Payer (Ef fective for All Dates) Name:Delmy Chandler Member ID:Not on file Relation to Subscriber:Not on file Name:DELMY CHANDLER Subscriber ID:Not on file (Home) Address: [address] [place] [id number] Payer ID:Not on file Group ID:Not on file Type:Self Pay Address: [place], [place] [facility] Advance Directives * Full Code (Latest Code Status on File) Date Activated Date Inactivated Comments 08/22/2016 6:42 PM 08/26/2016 1:13 PM Care Teams Website Project Manager Relationship Specialty Start Date End Date [facility] [address] [place] [address] PCP - General 01/26/19
== END 2025-03-16 16:38 | disposition home or self-care (01) ==
PROVIDERS: PCP Internal Medicine; Visit Provider Physician Assistant Surgical
DX: S62.664A Nondisplaced fracture of distal phalanx of right ring finger, initial encounter for closed fracture (principal); X58.XXXA Exposure to other specified factors, initial encounter; Z96.698 Presence of other orthopedic joint implants
CPT/HCPCS: 73140

== ENCOUNTER 2025-03-30 09:41 | Outpatient (CLI) | payer OTHER, SELFPAY ==
--- NOTE | ~2025-03-30 | XR_ITS ---
EXAM: XR finger 4th RT min 2V DATE: 03/30/2025 11:49 HISTORY: s/p pin removal . COMPARISON: 03/16/2025. FINDINGS: Interval fixation pin removal. Osseous detail obscured by overlying splint material. Heali ng/healed distal phalanx fracture. No new osseous erosion. Stable soft tissue/ossific debris and dist al soft tissue swelling IMPRESSION: Interval pin removal. Soft tissue swelling and debris, correlate for clinical signs of in fection. Reviewed, dictated and finalized at location K. IMPRESSION: Interval pin removal. Soft tissue swelling and debris, correlate fo r clinical signs of infection.
--- NOTE | ~2025-03-30 | XR_ITS ---
EXAM: XR finger 4th RT min 2V DATE: 03/30/2025 10:08 HISTORY: S62.664A - Nondisplaced fracture of distal phalanx of rig... . COMPARISON: 03/16/2025. FINDINGS: Pin fixation of the right fourth DIP joint. Healing/healed fracture of the right fourth di stal phalanx. Ossific fragments versus radiopaque debris along the medial aspect of the distal right fourth finger, with associated soft tissue swelling. IMPRESSION: Pin fixation of the right fourth PIP joint. Soft tissue swelling and debris, correlate fo r clinical findings of cellulitis. Reviewed, dictated and finalized at location K. IMPRESSION: Pin fixation of the right fourth PIP joint. Soft tissue swelling an d debris, correlate for clinical findings of cellulitis.
--- OUTSIDE RECORDS SUMMARY | 2025-03-30 09:50 | XMS_ITS ---
Author Organization [facility] Address [address] [place] [address] Phone Care Team Providers Care Building Stonecutter Name Role Phone Kostas Washington MD Primary Care Provider [phone] [facility] Status:Enrolled (Active) Start date:10/22/2024 Enrollment date:10/22/2024 Related social drivers of health:Intimate Partner Violence, Social Connections, Alcohol Use, Tobacco Use, Financial Resource Strain,Depression, Stress, Physical Activity, Food Insecurity, Transportation Needs, Housing Stability, Utilities Continued Care and Services Coordination
--- OUTSIDE RECORDS SUMMARY | 2025-03-30 09:51 | XMS_ITS | Continuity of Care Document ---
Author Organization [facility] Address [address] [place] [address] Phone Care Team Providers Care Pest Control Service Representative Name Role Phone Alvaro Soriano DO Unavailable Unavailable Advance Directives Directive Yes / No Effective Date File Name No Information Encounters Encounter Description Practice Location Reason(s) For Visit Diagnoses Date Provider Providers Copied on Encounter [facility], [address], [place], [place], [id number], tel:[phone] [facility] [place] No Information Bo [address]. [address] [place], [address], . tel: [phone] Family History Family Member Type Diagnosis Age At Onset No Information Payers Payer name Insurance type Covered republican ID Authoriza tion(s) Medicaid [facility] [id number] Social History Type Description Quantity Date Captured [...]
--- OUTSIDE RECORDS SUMMARY | 2025-03-30 09:51 | XMS_ITS | Clinical Summary ---
Author Organization 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 Gender Identity Not on file Sexual Orientation Not on file Last Filed Vital Signs Vital Sign Reading Time Taken Comments Blood Pressure 103/56 11/19/2024 4:15 AM ANESTHESIOLOGY TECH Pulse 59 11/19/2024 4:15 AM ANESTHESIOLOGY TECH Temperature 36.9 C (98.5 F) 11/19/2024 1:28 AM ANESTHESIOLOGY TECH Respiratory Rate 19 11/19/2024 1:28 AM ANESTHESIOLOGY TECH Oxygen Saturation 100% 11/19/2024 4:15 AM ANESTHESIOLOGY TECH Inhaled Oxygen Concentration - - Weight 91.2 kg (201 lb 1 oz) 11/19/2024 1:28 AM ANESTHESIOLOGY TECH Height 165.1 cm (5' 5 ) 11/19/2024 1:28 AM ANESTHESIOLOGY TECH Body Mass Index 33.46 11/19/2024 1:28 AM ANESTHESIOLOGY TECH Plan of Treatment Health Maintenance Due Date Last Done Comments Hepatitis C Virus (HCV) Screening 1995 Human Papillomavirus (HPV) Immunization (2 - 2-dose series) 04/30/2008 10/30/2007 Hepatitis B Immunization (1 of 3 - 19+ 3-dose series) 2014 Pneumococcal Immunization Combined (1 of 2 - PCV) 2014 Pap Smear 2016 SARS-COV-2 Immunization ( - season) 2024 Influenza Immunization (Seas on Ended) 2025 08/24/2016, 10/30/2007 Td Immunization Every 10 Yea rs (Adults With 1 Tdap) 12/18/2029 12/18/2019, 05/23/2016, 10/30/2007 Respiratory Syncytial Virus (RSV) Immunization (Adult) (1 - 1-dose 75+ series) 2070 Meningococcal Immunization (ACWY) Aged Out 10/30/2007 No longer eligible based on patient's age to complete this topic DTaP/Tdap/Td Immunization Discontinued 2019, 05/23/2016, 10/30/2007 Rotavirus Immunization Aged Out No lo nger eligible based on patient's age to complete this topic Medical Devices Implanted Type Area Glue Bone Crusher Device Identifier Shelf Expiration Date Model / Serial / Lot Stent Ureteral 6fr 2.1fr 26cm 2 Pigtail Curve 2 Durometer Taper Tip Loprfl Graduated Polaris Ultra - [id number] Implanted:Qty: 1 on 06/09/2021 by Juan Mancilla MD at [facility] IMPLANT [employer] 03/30/2024 [id number] / [id number] / [id number] Description:STRING OFF Insurance MEDICAID [facility] Care Teams Roll Hauler Relationship Specialty Start Date End Date Kostas Washington MD PCP - General Internal Medicine 06/07/21
--- OUTSIDE RECORDS SUMMARY | 2025-03-30 09:51 | XMS_ITS | Referral Summary ---
Author Organization [facility] Address [address] [place] [address] Care Team Providers Care Wireless Network Engineer Name Role Phone Kostas Washington MD Primary Care Provider [phone] Allergies Active Allergy Reactions Criticality Noted Date [...] on file Legal Sex Female 6:12 AM HISTORIC INTERPRETER Gender Identity Female 02/23/2022 10:20 PM CDT Sexual Orientation Straight 02/23/2022 10 :20 PM CDT Last Filed Vital Signs Vital Sign Reading Time Taken Comments Blood Pressure 122/85 11/30/2024 3:18 PM HISTORIC INTERPRETER Pulse 92 11/30/2024 3:18 PM HISTORIC INTERPRETER Temperature 37 C (98.6 F) 11/30/2024 3:18 PM HISTORIC INTERPRETER Respiratory Rate 18 11/30/2024 3:18 PM HISTORIC INTERPRETER Oxygen Saturation 98% 11/30/2024 3:18 PM HISTORIC INTERPRETER Inhaled Oxygen Concentration - - Weight 93.2 kg (205 lb 6.4 oz) 11/30/2024 3:18 P M HISTORIC INTERPRETER Height 165.1 cm (5' 5 ) 08/09/2023 [...] AM CDT) Hep A IgM Nonreactive Nonreactive [facility] Comment: Interpretive Data: If Hep A IgM Ab is reported as Equivocal, a new sample should be drawn in two weeks for testing. Current interpretive data was last revised on 20. Hep B core IgM Nonreactive Nonreactive [facility] Comment: Interpretive Data If HepB Core IgM Ab is reported as Equivocal, a new sample should be drawn in two weeks for testing. Current interpretive data was last revised on 20. Hep C Ab Nonreactive Nonreactive [facility] Comment:Antibodies to HCV no t detected. Does NOT exclude the possibility of recent exposure to HCV. HepBsAg Nonreactive Nonreactive [facility] Blood 02/14/2022 9:10 AM CDT 02/14/2022 11:12 AM CDT Jeannine Cheema NP LAB MICROBIOLOGY - GENERAL ORDERABLES Edited Result - Final [facility] Department [place] [address] from Last 3 Months or Most Recently Relevant to Health Maintenance Insurance [facility] [place] [address] Care Teams Wireless Network Engineer Relationship Specialty Start Date End Date Kostas Washington MD PCP - General Internal Medicine 02/14/22
--- OUTSIDE RECORDS SUMMARY | 2025-03-30 09:51 | XMS_ITS | Clinical Summary ---
Author Organization [facility] Address [address] [place] [address] Care Team Providers Care Manager Inpatient Name Role Phone Kostas Washington MD Primary Care Provider [phone] Allergies Active Allergy Reactions Criticality Noted Date [...] on file Legal Sex Female 6:12 AM SUPERVISOR NUCLEAR MEDICINE Gender Identity Female 02/23/2022 10:20 PM CDT Sexual Orientation Straight 02/23/2022 10 :20 PM CDT Obstetrics History Last Filed Vital Signs Vital Sign Reading Time Taken Comments Blood Pressure 122/85 11/30/2024 3:18 PM SUPERVISOR NUCLEAR MEDICINE Pulse 92 11/30/2024 3:18 PM SUPERVISOR NUCLEAR MEDICINE Temperature 37 C (98.6 F) 11/30/2024 3:18 PM SUPERVISOR NUCLEAR MEDICINE Respiratory Rate 18 11/30/2024 3:18 PM SUPERVISOR NUCLEAR MEDICINE Oxygen Saturation 98% 11/30/2024 3:18 PM SUPERVISOR NUCLEAR MEDICINE Inhaled Oxygen Concentration - - Weight 93.2 kg (205 lb 6.4 oz) 11/30/2024 3:18 P M SUPERVISOR NUCLEAR MEDICINE Height 165.1 cm (5' 5 ) 08/09/2023 [...] Hep C Ab Nonreactive Nonreactive [facility] Comment:Antibodies to HCV no t detected. Does NOT exclude the possibility of recent exposure to HCV. HepBsAg Nonreactive Nonreactive [facility] Blood 02/14/2022 9:10 AM CDT 02/14/2022 11:12 AM CDT Jeannine Cheema NP LAB MICROBIOLOGY - GENERAL ORDERABLES Edited Result - Final [facility] Department [place] [address] from Last 3 Months or Most Recently Relevant to Health Maintenance Insurance [facility] Care Teams Manager Inpatient Relationship Specialty Start Date End Date Kostas Washington MD PCP - General Internal Medicine 02/14/22
--- OUTSIDE RECORDS SUMMARY | 2025-03-30 09:51 | XMS_ITS | Clinical Summary ---
Author Organization [facility] Address [address] [place] [address] Care Team Providers Care Concrete Pouring Supervisor Name Role Phone [facility] ([facility]) Primary Care Provi nya Source Comments [facility] Affiliates and Associated Physician Practices is amultiple site organization consisting of ambulatory clinics and hospital sitesin [place], [place], [place] and [place]. This disclosure is being madepursuant to the Care Everywhere program and may not contain all information available regarding this patient. Last updated 18.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 Gender Identity Not on file Sexual Orientation [...] patient's age to complete this topic Insurance [facility] [place]ICAID [place] [facility] SELF PAY NO INSURANCE Member Subscriber Plan / Payer (Ef fective for All Dates) Name:Natanael Chandler Member ID:Not on file Relation to Subscriber:Not on file Name:NATANAEL CHANDLER Subscriber ID:Not on file (Home) Address: [address] [place] [phone] Payer ID:Not on file Group ID:Not on file Type:Self Pay Address: [place], [place] [facility] Advance Directives * Full Code (Latest Code Status on File) Date Activated Date Inactivated Comments 08/22/2016 6:42 PM 08/26/2016 1:13 PM Care Teams Concrete Pouring Supervisor Relationship Specialty Start Date End Date [facility] ([facility]) [address] [place] [address] PCP - General 01/26/19
--- OUTSIDE RECORDS SUMMARY | 2025-03-30 09:51 | XMS_ITS | Encounter Summary ---
Author Organization [facility] Address [address] 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 Gender Identity Not on file Sexual Orientation [...] Dept 12/31/23 Office Visit Linda Sanford APRN, [facility] Neurology [place] [address] Showing recent visits within past 365 days and meeting all other requirements Future Appointments Date Type Provider Dept 06/11/24 Appointment Linda Sanford APRN, [facility] [place] Showing future appointments within next 90 days and meeting all other requirements documented in this encounter Plan of Treatment Not on file documented as of this encounter Visit Diagnoses Diagnosis Chronic migraine with aura without status migrainosus, not intractable documented in this encounter Care Teams Ui Software Engineer Relationship Specialty Start Date End Date Kostas Washington MD PCP - General Internal Medicine 06/07/21 Eric Hooper MD Consulting Physician Gastroenterology 10/29/23 02/04/25 documented as of this encounter
--- OUTSIDE RECORDS SUMMARY | 2025-03-30 09:51 | XMS_ITS | Data Portability ---
Author Organization [place] [facility] [employer], Main Office Address [address] [place] [address] Care Team Providers Care Director Of Instruction Name Role Phone RASHAUN WASHINGTON Primary Care Provider RASHAUN WASHINGTON Referring Provider AMANDA HENDERSON Practical Nursing Faculty Unavailable Assessment Encounter Date Assessment Date Assessment [...] Lab CMP, serum or plasma [address] (Lab), [address] [place] [address], [address], 3 12:35:55 CBC w/ auto diff 2022 023 [facility] (Lab), [address] [place] [address], [address], 3 19:16:03 PT/PTT, plasma 2022 023 [facility] (Lab), [address] [place] [address], [address], 3 00:19:18 CMP, serum or plasma 2022 023 [facility] (Lab), [address] [place] [address], [address], 3 19:30:13 TSH, serum or plasma 2022 023 TRINA Not available 19:58:13 lipid panel, serum 2022 023 [facility] (Lab), [address] [place] [address], [address], 3 19:30:18 Referral physical therapist referral - Please contact patient to schedule 2023 024 [email or web address] [facility], [address], [address], [place], [address], 13:25:35 Procedures injection/a spiration joint/bursa (PROC) 2023 024 [email or web address] In-Office Order, Internal Use Only DO Not Attach Compendium DO Not Attach Compendium, Do Not Delete/merge, [id number] 12:51:32 Surgeries None recorded. Imaging None recorded. Medication Orders Marcaine (PF) 0.5 % (5 mg/mL) injection solution [address] [facility], [address], [place], [place], [id number], 12:51:33 Kenalog 10 mg/mL suspension for injection [address] [facility]15956, [address], [place], [place], [id number], 4 12:51:32 prednisone 10 mg tablets in a dose pack 2023 024 TRINA [facility]84001, [address], [place], [place], [id number], 12:51:42 ibuprofen 800 mg tablet 2022 023 [email or web address] [facility] #94223, [address], [place], [place], [id number], 4 12:05:45 cyclobenzap rine 5 mg tablet 2022 023 [email or web address] [facility] #05482, [address], [place], [place], [id number], 4 12:05:14 Patient TargetsNo targets recorded. Patient [...] 4.6 x10'3 /uL 4.2-10 .8 Not Available [facility] (Lab) [address] [place], [address], 06/18/2023 19:16:02 06/18/2006/18/2023 CBC/C OMPLE TE BLD COUNT W/DIF F red blood cells 4.28 x10'6 /uL 3.80-5 .20 Not Available [facility] (Lab) [address] [place], [address], 06/18/2023 19:16:02 06/18/2006/18/2023 CBC/C OMPLE TE BLD COUNT W/DIF F hemoglobin 13.0 g/dL 12.0-1 5.6 Not Available [facility] (Lab) [address] [place], [address], 06/18/2023 19:16:02 06/18/2006/18/2023 CBC/C OMPLE TE BLD COUNT W/DIF F hematocrit 39.6 % 35.7-4 5.7 Not Available [facility] (Lab) [address] [place], [address], 06/18/2023 19:16:02 06/18/2006/18/2023 CBC/C OMPLE TE BLD COUNT W/DIF F mean red cell volume 92.5 fL 82.0-9 9.0 Not Available [facility] (Lab) [address] [place], [address], 06/18/2023 19:16:02 06/18/2006/18/2023 CBC/C OMPLE TE BLD COUNT W/DIF F mean red cell hemoglobin 30.4 pg 27.0-3 3.0 Not Available [facility] (Lab) [address] [place], [address], 06/18/2023 19:16:02 06/18/2006/18/2023 CBC/C OMPLE TE BLD COUNT W/DIF F mean RBC HGB concentratio n 32.8 g/dL 31.0-3 6.0 Not Available [facility] (Lab) [address] [place], [address], 06/18/2023 19:16:02 06/18/2006/18/2023 CBC/C OMPLE TE BLD COUNT W/DIF F red cell distribution width 12.6 % 11.8-1 5.5 Not Available [facility] (Lab) [address] [place], [address], 06/18/2023 19:16:02 06/18/2006/18/2023 CBC/C OMPLE TE BLD COUNT W/DIF F platelets 190 x10'3 /uL 150-40 0 Not Available [facility] (Lab) [address] [place], [address], 06/18/2023 19:16:02 06/18/2006/18/2023 CBC/C OMPLE TE BLD COUNT W/DIF F mean platelet volume 12.6 fL 9.0-12 .4 high Not Available [facility] (Lab) [address] [place], [address], 06/18/2023 19:16:02 06/18/2006/18/2023 CBC/C OMPLE TE BLD COUNT W/DIF F neutrophils 64.1 % 39.0-7 2.0 Not Available [facility] (Lab) [address] [place], [address], 06/18/2023 19:16:02 06/18/2006/18/2023 CBC/C OMPLE TE BLD COUNT W/DIF F lymphocytes 27.1 % 16.0-4 7.0 Not Available [facility] (Lab) [address] [place], [address], 06/18/2023 19:16:02 06/18/2006/18/2023 CBC/C OMPLE TE BLD COUNT W/DIF F monocytes 7.6 % 5.0-12 .0 Not Available [facility] (Lab) [address] [place], [address], 06/18/2023 19:16:02 06/18/2006/18/2023 CBC/C OMPLE TE BLD COUNT W/DIF F eosinophils 0.6 % 1.0-7. 0 low Not Available [facility] (Lab) [address] [place], [address], 06/18/2023 19:16:02 06/18/2006/18/2023 CBC/C OMPLE TE BLD COUNT W/DIF F basophils 0.4 % 0.0-2. 0 Not Available [facility] (Lab) [address] [place], [address], 06/18/2023 19:16:02 06/18/2006/18/2023 CBC/C OMPLE TE BLD COUNT W/DIF F immature granulocytes 0.2 % 0.00-0 .50 Not Available [facility] (Lab) [address] [place], [address], 06/18/2023 19:16:02 06/18/2006/18/2023 CBC/C OMPLE TE BLD COUNT W/DIF F neutrophils, absolute count 2.96 x10'3 /uL 1.5-8. 0 Not Available [facility] (Lab) [address] [place], [address], 06/18/2023 19:16:02 06/18/2006/18/2023 CBC/C OMPLE TE BLD COUNT W/DIF F lymphocytes, absolute count 1.25 x10'3 /uL 1.07-3 .43 Not Available [facility] (Lab) [address] [place], [address], 06/18/2023 19:16:02 06/18/2006/18/2023 CBC/C OMPLE TE BLD COUNT W/DIF F monocytes, absolute count 0.35 x10'3 /uL 0.29-0 .99 Not Available [facility] (Lab) [address] [place], [address], 06/18/2023 19:16:02 06/18/2006/18/2023 CBC/C OMPLE TE BLD COUNT W/DIF F eosinophils, absolute count 0.03 x10'3 /uL 0.02-0 .53 Not Available [facility] (Lab) [address] [place], [address], 06/18/2023 19:16:02 06/18/2006/18/2023 CBC/C OMPLE TE BLD COUNT W/DIF F basophils, absolute count 0.02 x10'3 /uL 0.01-0 .08 Not Available [facility] (Lab) [address] [place], [address], 06/18/2023 19:16:02 06/18/2006/18/2023 CBC/C OMPLE TE BLD COUNT W/DIF F immature granulocytes ,absolute 0.01 x10'3 /uL 0.00-0 .05 Not Available [facility] (Lab) [address] [place], [address], 06/18/2023 19:16:02 06/18/2006/18/2023 CBC/C OMPLE TE BLD COUNT W/DIF F nucleated red blood cells 0.0 % -0 Not Available [facility] (Lab) [address] [place], [address], 06/18/2023 19:16:02 06/18/20 23 06/18/2023 CBC/C OMPLE TE BLD COUNT W/DIF F NRBC# 0.00 x10'3 /uL Not Available [facility] (Lab) [address] [place], [address], 06/18/2023 19:16:02 06/18/20 23 06/18/2023 COMPR EHENS ALLEGRA METAB OLIC PANEL sodium 141 mmol/ L 137-14 5 Not Available [facility] (Lab) [address] [place], [address], 06/18/2023 19:30:13 06/18/20 23 06/18/2023 COMPR EHENS ALLEGRA METAB OLIC PANEL potassium 4.0 mmol/ L 3.5-5. 1 Not Available [facility] (Lab) [address] [place], [address], 06/18/2023 19:30:13 06/18/20 23 06/18/2023 COMPR EHENS ALLEGRA METAB OLIC PANEL chloride 108 mmol/ L 98-107 high Not Available [facility] (Lab) [address] [place], [address], 06/18/2023 19:30:13 06/18/20 23 06/18/2023 COMPR EHENS ALLEGRA METAB OLIC PANEL carbon dioxide 24 mmol/ L 22-30 Not Available [facility] (Lab) [address] [place], [address], 06/18/2023 19:30:13 06/18/20 23 06/18/2023 COMPR EHENS ALLEGRA METAB OLIC PANEL anion gap 13.0 mmol/ L 14-22 low Not Available [facility] (Lab) [address] [place], [address], 06/18/2023 19:30:13 06/18/20 23 06/18/2023 COMPR EHENS ALLEGRA METAB OLIC PANEL glucose 95 mg/dL 70-99 Not Available [facility] (Lab) [address] [place], [address], 06/18/2023 19:30:13 06/18/20 23 06/18/2023 COMPR EHENS ALLEGRA METAB OLIC PANEL BUN 8 mg/dL 8-19 Not Available [facility] (Lab) [address] [place], [address], 06/18/2023 19:30:13 06/18/2006/18/2023 COMPR EHENS ALLEGRA METAB OLIC PANEL creatinine 0.68 mg/dL 0.66-1 .25 Not Available [facility] (Lab) [address] [place], [address], 06/18/2023 19:30:13 06/18/2006/18/2023 COMPR EHENS ALLEGRA METAB OLIC PANEL GFR >60 Refer ence Range : [place] ge GFR Healt hy Adult : >60 [...] calcu lator is avail able on the [facility] websi te: https :[email or web address] miguel.[email or web address] [email or web address]/guillermina ofess ional s/kdo qi/gf r_cal culat or Not Available [facility] (Lab) [address] [place], [address], 06/18/2023 19:30:13 06/18/20 23 06/18/2023 COMPR EHENS ALLEGRA METAB OLIC PANEL alkaline phosphatase 58 U/L 38-126 Not Available [facility] (Lab) [address] [place], [address], 06/18/2023 19:30:13 06/18/20 23 06/18/2023 COMPR EHENS ALLEGRA METAB OLIC PANEL alanine aminotransfe rase 15 U/L 0-35 Not Available [facility] (Lab) [address] [place], [address], 06/18/2023 19:30:13 06/18/20 23 06/18/2023 COMPR EHENS ALLEGRA METAB OLIC PANEL aspartate aminotransfe rase 18 U/L 15-37 Not Available [facility] (Lab) [address] [place], [address], 06/18/2023 19:30:13 06/18/20 23 06/18/2023 COMPR EHENS ALLEGRA METAB OLIC PANEL bilirubin, total 0.30 mg/dL 0.20-1 .30 Not Available [facility] (Lab) [address] [place], [address], 06/18/2023 19:30:13 06/18/20 23 06/18/2023 COMPR EHENS ALLEGRA METAB OLIC PANEL calcium 9.4 mg/dL 8.4-10 .2 Not Available [facility] (Lab) [address] [place], [address], 06/18/2023 19:30:13 06/18/20 23 06/18/2023 COMPR EHENS ALLEGRA METAB OLIC PANEL total protein 7.5 g/dL 6.3-8. 2 Not Available [facility] (Lab) [address] [place], [address], 06/18/2023 19:30:13 06/18/20 23 06/18/2023 COMPR EHENS ALLEGRA METAB OLIC PANEL albumin 4.3 g/dL 3.4-5. 0 Not Available [facility] (Lab) [address] [place], [address], 06/18/2023 19:30:13 06/18/20 23 06/18/2023 COMPR EHENS ALLEGRA METAB OLIC PANEL globulin 3.2 g/dL 2.6-4. 2 Not Available [facility] (Lab) [address] [place], [address], 06/18/2023 19:30:13 06/18/20 23 06/18/2023 COMPR EHENS ALLEGRA METAB OLIC PANEL A/G ratio 1.3 ratio 1.0-2. 0 Not Available [facility] (Lab) [address] [place], [address], 06/18/2023 19:30:13 06/18/20 23 06/18/2023 LIPID PANEL cholesterol 109 mg/dL 140-19 9 low NIH JORDAN NSUS RECOM MENDA TION FOR NEAL STERO L: ADULT CHILD LOW RISK: <200 <170 BORDE RLINE : <200- 239 ----- HIGH RISK: >240 >200 Not Available [facility] (Lab) [address] [place], [address], 06/18/2023 19:30:18 06/18/20 23 06/18/2023 LIPID PANEL triglyceride s 46 mg/dL 0-150 NIH JORDAN NSUS REPOR T RECOM MENDA TION FOR TRIGL YCERI EDE: ADULT CHILD LOW RISK: <150 ----- BODER LINE: 150-1 99 ----- HIGH RISK: >200 ----- Not Available [facility] (Lab) [address] [facility] [place], [address], 06/18/2023 19:30:18 06/18/20 23 06/18/2023 LIPID PANEL HDL cholesterol 39 mg/dL 40- low Not Available [facility] (Lab) [address] [facility] [place], [address], 06/18/2023 19:30:18 06/18/20 23 06/18/2023 LIPID PANEL [...] WILL NOT BE REPOR TORY. Not Available [facility] (Lab) [address] [place], [address], 06/18/2023 19:30:18 06/18/2006/18/2023 APTT APTT 30.0 secon ds 23.4-3 1.4 PLEAS E NOTE NEW APTT REFER ENCE RANGE EFFEC TIVE 11/05 . Not Available [facility] (Lab) [address] [place], [address], 06/18/2023 19:31:28 06/18/2006/18/2023 PROTI ME W/INR protime 10.9 secon ds 9.5-11 .5 Not Available [facility] (Lab) [address] [place], [address], 06/18/2023 19:31:34 06/18/20 23 06/18/2023 PROTI ME [...] HOSPH OLIPI D SYNDR OME. Not Available [facility] (Lab) [address] [place], [address], 06/18/2023 19:31:34 06/18/20 23 06/18/2023 TSH thyroid-stim ulating hormone 0.873 uIU/m L 0.465- 4.680 Not Available [facility] (Lab) [address] [place], [address], 06/18/2023 19:58:13 01/18/20 23 01/17/2023 XR, finge r(s), 2 or more view No observ ation record ed. [address] [place], [address], 01/18/2023 10:29:18 05/26/20 23 05/26/2023 XR, cervi erika spine No observ ation record ed. [email or web address] [place] [address], [place], [address], 05/30/2023 09:32:47 11/14/20 23 11/13/2023 XR, foot, 3 or more view No observ ation record ed. [email or web address] Not Available 2023 09:16:26 04/21/20 24 04/19/2024 XR, shoul nya, 2 or more view No observ ation record ed. [email or web address] Not Available 02/2024 15:13:56 03/05/20 25 03/05/2025 imagi ng/di agnos tic resul t No observ ation record ed. [email or web address] Americo Johnson MD [address] [address], [place], [address], 03/08/2025 13:59:51 Result Notes None recorded. Problems Name Problem SNOMED Code Status Onset Date Resolution Date Notes Provider Name and Address Organization Details Recorded Time Otalgia of left ear 5501170687 Completed 202105/27/2023 Rosalind modi RMNic meneses, [facility] 3 15:08:50 Pain of bilateral hands 91046707947 457237 Completed 202105/27/2023 Roslaind modi RMNic meneses, [facility] [employer] [facility] 3 15:08:48 Laborator y test result abnormal 298540369 Active 2021 Not Available [facility] 3 19:46:25 Lupus erythemat osus 237138458 Active 2021 Not Available [facility] 3 19:46:25 Headache 45991816 Completed 202105/15/2022 Not [address] [facility] 3 19:46:25 Migraine 69496975 Active 2021 Not Available [facility] 3 19:46:25 Celiac disease 062648215 Active 2020 Not Available [facility] 3 19:46:25 Obesity 328799803 Active 2020 Not Available [facility] 3 19:46:25 Nausea 663252819 Completed 202105/15/[address]22 Not [address] [facility] 3 19:46:25 Aphthous ulcer of mouth 924895433 Completed 202105/15/[address] [facility] 3 19:46:26 Acute urinary tract infection 436637015 Completed 202105/15/2022 Rosalind modi RMA null, [place] [facility] 3 15:08:38 Pain of right knee joint 87676231596 4100 Active 2022 Not Available [facility] 3 19:46:26 Pain of hip region 13835062 Completed 202105/15/[address] Not [address] [facility] 3 19:46:26 Upper respirato ry infection 73673769 Active 2021 Not Available [facility] 3 19:46:26 Alopecia 68367660 Active 2021 Not Available [facility] 3 19:46:26 Smoker 49559275 Active 2020 Not [address] [facility] 3 19:46:26 72256944 Completed 201812/17/[address] [facility] 3 19:46:26 Hyperglyc emia 82514921 Active 2020 Not [address] [facility] 3 19:46:26 COVID-19 915610467 Completed 202105/27/2023 Rosalind modi RMA null, [place] [facility] 3 15:08:41 Injury of finger 42309372 Active 2022 Sarah Cabrera CMA null, [place] [facility] 3 10:30:18 Pain in right hand 30896425592 9109 Completed 202205/27/2023 Rosalind modi RMA null, [place] [facility] 3 15:08:45 Mass of hand 922527683 Active 2022 Arvind Guevara MD [address] [place] [address], [address] , [place] [facility] 3 09:51:43 Acute urinary tract infection 229572082 Completed 202205/27/2023 Rosalind modi RMA null, [place] [facility] 3 15:08:38 Neck pain 91778750 Active 2022 Rashaun Washington MD [address], [address], [place], [address] , [place] [facility] 3 15:13:57 Hyperlipi demia 34115964 Active 2022 Rashaun Washington MD [address], [address], [place], [address] , [facility] 3 15:51:16 Multiple bruising 599176223 Active 2022 Rashaun Washington MD [address], [address], [place], [address] , [facility] 3 15:51:39 Easy bruising 814945783 Active 2022 Rashaun Washington MD [address], [address], [place], [address] , [facility] 3 15:51:58 Weight loss 26567085 Active 2022 Rashaun Washington MD [address], [address], [place], [address] , [facility] 3 15:52:46 Hypocalce ashleigh 9725240 Active 2022 Rashaun Washington MD [address], [address], [place], [address] , [facility] 3 10:12:38 Cough 55912127 Active 2022 Rama Irene LPN null, [place] [facility] 3 13:05:48 Pain of right shoulder joint 28042139755 082718 Active 2023 KELI Meyers, [place] [facility] 4 12:07:44 Right rotator cuff strain Active 2023 RENALDO Washburn [address], [address], [place], [address] , [place] [facility] 12:52:20 Contusion of right shoulder 91459053765 949282 Active 2023 RENALDO Washburn [address] [place] [address], [facility] [address], [place], [address] , [facility] - [facility] [employer] [facility] [employer] 12:52:27 Notes:Some problems listed i n Documents: #[id number], #[id number] could not be added to this patient's chart. Please review these documents and add these problems to the patient's chart manually as needed. Problem Notes None recorded. Procedures Surgical History Date Name Laterality Status Provider Name and Address Organization Details Recorded Time 03/21/20 CLASSER Surgery completed Not Available [facility] 01/17/20 19:45:31 03/13/20 endometrial biopsy completed Not Available [facility] 01/16/2023 19:45:31 03/08/20 21 Date of Last Pap Smear completed Not Available [facility] 01/16/2023 19:45:30 04/12/20 20 laparoscopic salpingectomy completed Not Available [facility] 01/16/2023 19:45:31 03/18/20 20 CLASSER Surgery completed Not Available [facility] 01/17/20 19:45:31 Eye Surgery completed Not Available [facility] 01/16/2023 19:45:31 Ankle arthroscopy/surge ry completed Not Available [facility] 01/16/2023 19:45:31 Imaging Results Imaging Date Name Status LastModified by Organiz ation Details LastModified Time 01/17/2023 XR, finger(s), 2 or more view completed [address] [place], [address], 01/18/2023 10:29:18 05/26/2023 XR, cervical spine completed [facility] [email or web address] [facility] [address] [address], [place], [address], 05/30/2023 09:32:47 11/13/2023 XR, foot, 3 or more view completed [email or web address] Information not available 11/27/2023 09:16:26 04/19/2024 XR, shoulder, 2 or more view completed [email or web address] Information not available 04/21/2024 15:13:56 03/05/2025 imaging/diagn ostic result completed [email or web address] Americo Johnson MD [address] [facility] [address] [facility] [address], [place], [address], 03/08/2025 13:59:51 Procedure Notes None recorded. Medical Equipment None Reported. Allergies Allergen ID Allergen Name Allergen Category Reaction Reaction Severity Criticality Documentation Date Start Date Code Code System Note Provider Name and Address Organization Details Recorded Time 72992 oxybutyni n medicatio n anaphylax is Not available Not available 01/16/2023 59253 RxNorm Not Available [facility] 3 19:47:43 57745 morphine medicatio n anaphylax is Not available Not available 01/16/2023 7052 RxNorm Not Available [facility] 3 19:47:43 61215 Iodinated contrast media (substanc e) medicatio n rash Not available Not available 01/16/2023 89436 2004 SNOMED Not Available [facility] 3 19:47:43 14245 fluconazo le medicatio n swelling Not available Not available 01/16/2023 4450 RxNorm Not Available [facility] 3 19:47:43 35475 hydrocodo ne Not available rash severe Not available 01/16/2023 5489 RxNorm Not Available [facility] 3 19:47:43 Medications Name Sig [...] Not Available prednisone 10 mg tablet take 4u5twug, 2h4otst, 9d5mzuu active Not Available Not Available No t [...] Available Not Available benzonatate 200 mg capsule [id number]|[id number]|2025-03-30 09:51:00|2025-03-30 09:51:00|XMS_ITS|BKG DAEMON|External Medical Summaries|[id number]|" Encounter Summary Created on: March 30, 2025 Sabina Chandler : 1995 Sex: Female [facility] Address [address] [place] [address] Phone Care Team Providers Care Director Of Instruction Name Role Phone Rashaun Washington MD Primary Care Provider [phone] Rashaun Washington MD Primary Care Provider [phone] Eric Hooper MD Unavailable [phone] Reason for Referral * Radiology Services (Routine) - Closed Specialty Diagnoses / Procedures Referred By Contac t Referred To Contact Radiology Diagnoses Pre-op testing Procedures EKG 12 LEAD Juan Mancilla MD Referral ID Status Reason Start Date Expiration Date Visits Re quested Visits Authorized [id number] Closed 06/06/2021 1 1 Encounter Details Date Type Department Care Team (Latest Contact Info) Description 06/06/2021 Transcribe Orders [facility] Preop/Pacu II [address] [place] [address] uJan Mancilla MD Pre-op testing (Primary Dx) Social [...] on file 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 Gender Identity Not on file Sexual Orientation [...] QTC CALCULATION 445 ms EXTERNAL EKG P [place] 55 degrees EXTERNAL EKG R [place] 90 degrees EXTERNAL EKG T [place] 22 degrees EXTERNAL EKG 06/07/2021 9:18 AM CDT Impressions EXTERNAL EKG - 06/08/2021 9:13 AM CDT Sinus tachycardia Rightward axis Comparison Summary: No serial comparison made Summary: Borderline ECG Confirmed by Osei Norris [id number] on 06/08/2021 9:13:35 AM Narrative Procedure Note Leslie Franz MD - 06/08/2021 IMPRESSION: Sinus tachycardia Rightward axis Comparison Summary: No serial comparison made Summary: Borderline ECG Confirmed by Osei Norris [id number] on 06/08/2021 9:13:35 AM Juan Mancilla MD IMG ECG ORDERABLES Final Result EXTERNAL EKG * SARS-COV-2 BY MOLECULAR (06/07/2021 9:06 AM CDT) SARSCOV2 NOT DETECTED (Referenc e Range for this test is Not Detected) [facility] LUCAS ID NOW 06/07/2021 9:29 AM CDT [facility] Comment:This test was perfor med by a MOLECULAR, NON-PCR method Other NASOPHARYNGEAL STRUCTURE / Unknown Non-Phlebotomy Collection / Unknown 06/07/2021 9:06 AM CDT 06/07/2021 9:11 AM CDT Narrative [facility] - 06/07/2021 9:29 AM [...] information for Clinicians can be found at: https://www.fda.gov/media/158455/download Additional information for Patients can be found at: https://www.fda.gov/media/011474/download Juan Mancilla MD MICROBIOLOGY - GENERAL ORDERABLE S Final Result [facility] [place] [address] documented in this encounter Visit Diagnoses Diagnosis Pre-op testing- Primary Preoperative examination, unspecified Pre-op testing Preoperative examination, unspecified documented in this encounter Care Teams Director Of Instruction Relationship Specialty Start Date End Date Rashaun Washington MD PCP - General Internal Medicine 11/10/18 06/06/21 Rashaun Washington MD PCP - General Internal Medicine 06/07/21 Eric Hooper MD Consulting Physician Gastroenterology 10/29/23 02/04/25 documented as of this encounter "
== END 2025-03-30 09:42 | disposition home or self-care (01) ==
PROVIDERS: PCP Internal Medicine; Visit Provider Physician Assistant Surgical
DX: S62.664D Nondisplaced fracture of distal phalanx of right ring finger, subsequent encounter for fracture with routine healing (principal); X58.XXXD Exposure to other specified factors, subsequent encounter; Z47.2 Encounter for removal of internal fixation device
CPT/HCPCS: 73140

== ENCOUNTER 2025-04-13 09:29 | Outpatient (CLI) | payer OTHER, SELFPAY ==
--- NOTE | ~2025-04-13 | XR_ITS ---
XR finger 4th RT min 2V Ordering provider: Liyah Souza PA-C History: . S62.664A - Nondisplaced fracture of distal phalanx of rig... . Comparison: March 30, 2025 FINDINGS: BONES: Fracture at the base of the distal phalanx of the fourth finger. Lucency at the base of the di stal phalanx of the fourth finger unchanged from previous examination.. JOINT SPACES: Normal. SOFT TISSUES: Normal. IMPRESSION: Healing fracture in the base of the distal phalanx with lucency unchanged from previous examination. Reviewed, dictated and finalized at location A.
--- OUTSIDE RECORDS SUMMARY | 2025-04-13 09:34 | XMS_ITS | Encounter Summary ---
Author Organization [facility] Address [address] [place] [address] Phone Care Team Providers Care Special Shopper Name Role Phone Kostas Washington MD Primary Care Provider Kostas Washington MD Primary Care Provider [phone] Eric Hooper MD Unavailable [phone] Reason for Referral * Radiology Services (Routine) - Closed Specialty Diagnoses / Procedures Referred By Contac t Referred To Contact Radiology Diagnoses Pre-op testing Procedures EKG 12 LEAD Juan Mancilla MD Referral ID Status Reason Start Date Expiration Date Visits Re quested Visits Authorized [id number] Closed 06/06/2021 1 1 Encounter Details Date Type Department Care Team (Latest Contact Info) Description 06/06/2021 Transcribe Orders [facility] Preop/Pacu II [address] [place] [id number] Juan Mancilla MD Pre-op testing (Primary Dx) [...] on file 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 Gender Identity Not on file Sexual Orientation [...] QTC CALCULATION 445 ms EXTERNAL EKG P [place] 55 degrees EXTERNAL EKG R [place] 90 degrees EXTERNAL EKG T [place] 22 degrees EXTERNAL EKG 06/07/2021 9:18 AM CDT Impressions EXTERNAL EKG - 06/08/2021 9:13 AM CDT Sinus tachycardia Rightward axis Comparison Summary: No serial comparison made Summary: Borderline ECG Confirmed by Osei Norris [id number] on 06/08/2021 9:13:35 AM Narrative Procedure Note Leslie Franz MD - 06/08/2021 IMPRESSION: Sinus tachycardia Rightward axis Comparison Summary: No serial comparison made Summary: Borderline ECG Confirmed by Osei Norris [id number] on 06/08/2021 9:13:35 AM [facility] Charo ROJAS IMG ECG ORDERABLES Final Result EXTERNAL EKG * SARS-COV-2 BY MOLECULAR (06/07/2021 9:06 AM CDT) SARSCOV2 NOT DETECTED (Referenc e Range for this test is Not Detected) [facility] ID NOW 06/07/2021 9:29 AM CDT [facility] Comment:This test was perfor med by a MOLECULAR, NON-PCR method Other NASOPHARYNGEAL STRUCTURE / Unknown Non-Phlebotomy Collection / Unknown 06/07/2021 9:06 AM CDT 06/07/2021 9:11 AM CDT Narrative [facility] - 06/07/2021 9:29 AM CDT [...] information for Clinicians can be found at: https://www.fda.gov/media/344031/download Additional information for Patients can be found at: https://www.fda.gov/media/841686/download Juan Mancilla MD MICROBIOLOGY - GENERAL ORDERABLE S Final Result [facility] [address] [place] [address] documented in this encounter Visit Diagnoses Diagnosis Pre-op testing- Primary Preoperative examination, unspecified Pre-op testing Preoperative examination, unspecified documented in this encounter Care Teams Special Shopper Relationship Specialty Start Date End Date Kostas Washington MD PCP - General Internal Medicine 11/10/18 06/06/21 Kostas Washington MD PCP - General Internal Medicine 06/07/21 Eric Hooper MD Consulting Physician Gastroenterology 10/29/23 02/04/25 documented as of this encounter
--- OUTSIDE RECORDS SUMMARY | 2025-04-13 09:34 | XMS_ITS | Continuity of Care Document ---
Author Organization [facility] Address [address] [place] [address] Phone Care Team Providers Care Harness Cleaner Name Role Phone Alvaro Soriano DO Unavailable Unavailable Advance Directives Directive Yes / No Effective Date File Name No Information Encounters Encounter Description Practice Location Reason(s) For Visit Diagnoses Date Provider Providers Copied on Encounter [facility], [address], [place], [place], [id number], tel:[phone] [facility] No Information Bo Abbott. [address] [place], [address], . tel: [phone] Family History Family Member Type Diagnosis Age At Onset No Information Payers Payer name Insurance type Covered libertarian ID Authoriza tion(s) Medicaid [facility] [id number] Social History Type Description Quantity Date Captured [...]
--- OUTSIDE RECORDS SUMMARY | 2025-04-13 09:34 | XMS_ITS | Clinical Summary ---
Author Organization [facility] Address [address] [place] [address] Care Team Providers Care Automotive Painter Helper Name Role Phone [facility] ([facility]) Primary Care Provi nya Source Comments [facility],non-research psychiatric center Affiliates and Associated Physician Practices is amultiple site organization consisting of ambulatory clinics and hospital sitesin [place], [place], [place] and [place]. This disclosure is being madepursuant to the Care Everywhere program and may not contain all information available regarding this patient. 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 Gender Identity Not on file Sexual Orientation [...] 5:09 PM CDT Height 165.1 cm (5' 5) 08/22/2016 5:09 PM CDT Body Mass Index [...] patient's age to complete this topic Insurance [facility] Address: [address] [address] [place] [address] MEDICAID - [place] [facility] SELF PAY NO INSURANCE Member Subscriber Plan / Payer (Ef fective for All Dates) Name:Natanael Chandler Member ID:Not on file Relation to Subscriber:Not on file Name:NATANAEL CHANDLER Subscriber ID:Not on file (Home) Address: [address] [place] [phone] Payer ID:Not on file Group ID:Not on file Type:Self Pay Address: [place], [place] [facility] Advance Directives * Full Code (Latest Code Status on File) Date Activated Date Inactivated Comments 08/22/2016 6:42 PM 08/26/2016 1:13 PM Care Teams Automotive Painter Helper Relationship Specialty Start Date End Date [facility] ([facility]) [address] [place] [address] PCP - General 01/26/19
--- OUTSIDE RECORDS SUMMARY | 2025-04-13 09:34 | XMS_ITS | Data Portability ---
Author Organization [place] [facility], Main Office Address [address] [place] [address] Care Team Providers Care Hand Bulldozer Name Role Phone RASHAUN WASHINGTON Primary Care Provider [phone] RASHAUN WASHINGTON Referring Provider [phone] AMANDA HENDERSON City Planning Engineer Unavailable Assessment Encounter Date Assessment Date Assessment [...] Lab CMP, serum or plasma [address] (Lab), [address] [place] [address], [address], 3 12:35:55 CBC w/ auto diff 2022 023 [facility] (Lab), [address] [place] [address], [address], 3 19:16:03 PT/PTT, plasma 2022 023 [facility] (Lab), [address] [place] [address], [address], 3 00:19:18 CMP, serum or plasma 2022 023 [facility] (Lab), [address] [place] [address], [address], 3 19:30:13 TSH, serum or plasma 2022 023 [facility] Not available 19:58:13 lipid panel, serum 2022 023 [facility] (Lab), [address] [place] [address], [address], 3 19:30:18 Referral physical therapist referral - Please contact patient to schedule 2023 024 [email or web address] [facility], [address], [address], [place], [address], 13:25:35 Procedures injection/a spiration joint/bursa (PROC) 2023 024 [email or web address] In-Office Order, Internal Use Only DO Not Attach Compendium DO Not Attach Compendium, Do Not Delete/merge, [id number] 12:51:32 Surgeries None recorded. Imaging None recorded. Medication Orders Marcaine (PF) 0.5 % (5 mg/mL) injection solution [address] [email or web address] #[id number], [address], [place], [place], [id number], 4 12:51:33 Kenalog 10 mg/mL suspension for injection [address] [facility]00068, [address], [place], [place], [id number], 4 12:51:32 prednisone 10 mg tablets in a dose pack 2023 024 TRINA [facility] #41118, [address], [place], [place], [id number], 4 12:51:42 ibuprofen 800 mg tablet 2022 023 [email or web address] [facility] #81611, [address], [place], [place], [id number], 4 12:05:45 cyclobenzap rine 5 mg tablet 2022 023 [facility] #99216, [address], [place], [place], [id number], 4 12:05:14 Patient TargetsNo targets recorded. Patient [...] 4.6 x10'3 /uL 4.2-10 .8 Not Available [facility] (Lab) [address] [place], [address], 06/18/2023 19:16:02 06/18/2006/18/2023 CBC/C OMPLE TE BLD COUNT W/DIF F red blood cells 4.28 x10'6 /uL 3.80-5 .20 Not Available [facility] (Lab) [address] [place], [address], 06/18/2023 19:16:02 06/18/2006/18/2023 CBC/C OMPLE TE BLD COUNT W/DIF F hemoglobin 13.0 g/dL 12.0-1 5.6 Not Available [facility] (Lab) [address] [place], [address], 06/18/2023 19:16:02 06/18/2006/18/2023 CBC/C OMPLE TE BLD COUNT W/DIF F hematocrit 39.6 % 35.7-4 5.7 Not Available [facility] (Lab) [address] [place], [address], 06/18/2023 19:16:02 06/18/2006/18/2023 CBC/C OMPLE TE BLD COUNT W/DIF F mean red cell volume 92.5 fL 82.0-9 9.0 Not Available [facility] (Lab) [address] [place], [address], 06/18/2023 19:16:02 06/18/20 23 06/18/2023 CBC/C OMPLE TE BLD COUNT W/DIF F mean red cell hemoglobin 30.4 pg 27.0-3 3.0 Not Available [facility] (Lab) [address] [place], [address], 06/18/2023 19:16:02 06/18/20 23 06/18/2023 CBC/C OMPLE TE BLD COUNT W/DIF F mean RBC HGB concentratio n 32.8 g/dL 31.0-3 6.0 Not Available [facility] (Lab) [address] [place], [address], 06/18/2023 19:16:02 06/18/2006/18/2023 CBC/C OMPLE TE BLD COUNT W/DIF F red cell distribution width 12.6 % 11.8-1 5.5 Not Available [facility] (Lab) [address] [place], [address], 06/18/2023 19:16:02 06/18/2006/18/2023 CBC/C OMPLE TE BLD COUNT W/DIF F platelets 190 x10'3 /uL 150-40 0 Not Available [facility] (Lab) [address] [place], [address], 06/18/2023 19:16:02 06/18/2006/18/2023 CBC/C OMPLE TE BLD COUNT W/DIF F mean platelet volume 12.6 fL 9.0-12 .4 high Not Available [facility] (Lab) [address] [place], [address], 06/18/2023 19:16:02 06/18/20 23 06/18/2023 CBC/C OMPLE TE BLD COUNT W/DIF F neutrophils 64.1 % 39.0-7 2.0 Not Available [facility] (Lab) [address] [place], [address], 06/18/2023 19:16:02 06/18/2006/18/2023 CBC/C OMPLE TE BLD COUNT W/DIF F lymphocytes 27.1 % 16.0-4 7.0 Not Available [facility] (Lab) [address] [place], [address], 06/18/2023 19:16:02 06/18/2006/18/2023 CBC/C OMPLE TE BLD COUNT W/DIF F monocytes 7.6 % 5.0-12 .0 Not Available [facility] (Lab) [address] [place], [address], 06/18/2023 19:16:02 06/18/2006/18/2023 CBC/C OMPLE TE BLD COUNT W/DIF F eosinophils 0.6 % 1.0-7. 0 low Not Available [facility] (Lab) [address] [place], [address], 06/18/2023 19:16:02 06/18/2006/18/2023 CBC/C OMPLE TE BLD COUNT W/DIF F basophils 0.4 % 0.0-2. 0 Not Available [facility] (Lab) [address] [place], [address], 06/18/2023 19:16:02 06/18/2006/18/2023 CBC/C OMPLE TE BLD COUNT W/DIF F immature granulocytes 0.2 % 0.00-0 .50 Not Available [facility] (Lab) [address] [place], [address], 06/18/2023 19:16:02 06/18/2006/18/2023 CBC/C OMPLE TE BLD COUNT W/DIF F neutrophils, absolute count 2.96 x10'3 /uL 1.5-8. 0 Not Available [facility] (Lab) [address] [place], [address], 06/18/2023 19:16:02 06/18/2006/18/2023 CBC/C OMPLE TE BLD COUNT W/DIF F lymphocytes, absolute count 1.25 x10'3 /uL 1.07-3 .43 Not Available [facility] (Lab) [address] [place], [address], 06/18/2023 19:16:02 06/18/2006/18/2023 CBC/C OMPLE TE BLD COUNT W/DIF F monocytes, absolute count 0.35 x10'3 /uL 0.29-0 .99 Not Available [facility] (Lab) [address] [place], [address], 06/18/2023 19:16:02 06/18/2006/18/2023 CBC/C OMPLE TE BLD COUNT W/DIF F eosinophils, absolute count 0.03 x10'3 /uL 0.02-0 .53 Not Available [facility] (Lab) [address] [place], [address], 06/18/2023 19:16:02 06/18/2006/18/2023 CBC/C OMPLE TE BLD COUNT W/DIF F basophils, absolute count 0.02 x10'3 /uL 0.01-0 .08 Not Available [facility] (Lab) [address] [place], [address], 06/18/2023 19:16:02 06/18/2006/18/2023 CBC/C OMPLE TE BLD COUNT W/DIF F immature granulocytes ,absolute 0.01 x10'3 /uL 0.00-0 .05 Not Available [facility] (Lab) [address] [place], [address], 06/18/2023 19:16:02 06/18/2006/18/2023 CBC/C OMPLE TE BLD COUNT W/DIF F nucleated red blood cells 0.0 % -0 Not Available [facility] (Lab) [address] [place], [address], 06/18/2023 19:16:02 06/18/20 23 06/18/2023 CBC/C OMPLE TE BLD COUNT W/DIF F NRBC# 0.00 x10'3 /uL Not Available [facility] (Lab) [address] [place], [address], 06/18/2023 19:16:02 06/18/20 23 06/18/2023 COMPR EHENS ALLEGRA METAB OLIC PANEL sodium 141 mmol/ L 137-14 5 Not Available [facility] (Lab) [address] [place], [address], 06/18/2023 19:30:13 06/18/20 23 06/18/2023 COMPR EHENS ALLEGRA METAB OLIC PANEL potassium 4.0 mmol/ L 3.5-5. 1 Not Available [facility] (Lab) [address] [place], [address], 06/18/2023 19:30:13 06/18/20 23 06/18/2023 COMPR EHENS ALLEGRA METAB OLIC PANEL chloride 108 mmol/ L 98-107 high Not Available [facility] (Lab) [address] [place], [address], 06/18/2023 19:30:13 06/18/20 23 06/18/2023 COMPR EHENS ALLEGRA METAB OLIC PANEL carbon dioxide 24 mmol/ L 22-30 Not Available [facility] (Lab) [address] [place], [address], 06/18/2023 19:30:13 06/18/20 23 06/18/2023 COMPR EHENS ALLEGRA METAB OLIC PANEL anion gap 13.0 mmol/ L 14-22 low Not Available [facility] (Lab) [address] [place], [address], 06/18/2023 19:30:13 06/18/20 23 06/18/2023 COMPR EHENS ALLEGRA METAB OLIC PANEL glucose 95 mg/dL 70-99 Not Available [facility] (Lab) [address] [place], [address], 06/18/2023 19:30:13 06/18/2006/18/2023 COMPR EHENS ALLEGRA METAB OLIC PANEL BUN 8 mg/dL 8-19 Not Available [facility] (Lab) [address] [place], [address], 06/18/2023 19:30:13 06/18/2006/18/2023 COMPR EHENS ALLEGRA METAB OLIC PANEL creatinine 0.68 mg/dL 0.66-1 .25 Not Available [facility] (Lab) [address] [place], [address], 06/18/2023 19:30:13 06/18/2006/18/2023 COMPR EHENS ALLEGRA METAB OLIC PANEL GFR >60 Refer ence Range : [place] ge GFR Healt hy Adult : >60 [...] calcu lator is avail able on the [facility] websi te: [email or web address] :[email or web address] culat or Not Available [facility] (Lab) [address] [place], [address], 06/18/2023 19:30:13 06/18/20 23 06/18/2023 COMPR EHENS ALLEGRA METAB OLIC PANEL alkaline phosphatase 58 U/L 38-126 Not Available [facility] (Lab) [address] [place], [address], 06/18/2023 19:30:13 06/18/20 23 06/18/2023 COMPR EHENS ALLEGRA METAB OLIC PANEL alanine aminotransfe rase 15 U/L 0-[address] [facility] (Lab) [address] [place], [address], 06/18/2023 19:30:13 06/18/20 23 06/18/2023 COMPR EHENS ALLEGRA METAB OLIC PANEL aspartate aminotransfe rase 18 U/L 15-[address] [facility] (Lab) [address] [place], [address], 06/18/2023 19:30:13 06/18/20 23 06/18/2023 COMPR EHENS ALLEGRA METAB OLIC PANEL bilirubin, total 0.30 mg/dL 0.20-1 .30 Not Available [facility] (Lab) [address] [place], [address], 06/18/2023 19:30:13 06/18/20 23 06/18/2023 COMPR EHENS ALLEGRA METAB OLIC PANEL calcium 9.4 mg/dL 8.4-10 .2 Not Available [facility] (Lab) [address] [place], [address], 06/18/2023 19:30:13 06/18/20 23 06/18/2023 COMPR EHENS ALLEGRA METAB OLIC PANEL total protein 7.5 g/dL 6.3-8. 2 Not Available [facility] (Lab) [address] [place], [address], 06/18/2023 19:30:13 06/18/20 23 06/18/2023 COMPR EHENS ALLEGRA METAB OLIC PANEL albumin 4.3 g/dL 3.4-5. 0 Not Available [facility] (Lab) [address] [place], [address], 06/18/2023 19:30:13 06/18/20 23 06/18/2023 COMPR EHENS ALLEGRA METAB OLIC PANEL globulin 3.2 g/dL 2.6-4. 2 Not Available [facility] (Lab) [address] [place], [address], 06/18/2023 19:30:13 06/18/20 23 06/18/2023 COMPR EHENS ALLEGRA METAB OLIC PANEL A/G ratio 1.3 ratio 1.0-2. 0 Not Available [facility] (Lab) [address] [place], [address], 06/18/2023 19:30:13 06/18/20 23 06/18/2023 LIPID PANEL cholesterol 109 mg/dL 140-19 9 low NIH JORDAN NSUS RECOM MENDA TION FOR NEAL STERO L: ADULT CHILD LOW RISK: <200 <170 BORDE RLINE : <200- 239 ----- HIGH RISK: >240 >200 Not Available [facility] (Lab) [address] [place], [address], 06/18/2023 19:30:18 06/18/2006/18/2023 LIPID PANEL triglyceride s 46 mg/dL 0-150 NIH JORDAN NSUS REPOR T RECOM MENDA TION FOR TRIGL YCERI EDE: ADULT CHILD LOW RISK: <150 ----- BODER LINE: 150-1 99 ----- HIGH RISK: >200 ----- Not Available [facility] (Lab) [address] [place], [address], 06/18/2023 19:30:18 06/18/20 23 06/18/2023 LIPID PANEL HDL cholesterol 39 mg/dL 40- low Not Available [facility] (Lab) [address] [place], [address], 06/18/2023 19:30:18 06/18/20 23 06/18/2023 LIPID PANEL [...] WILL NOT BE REPOR TORY. Not Available [facility] (Lab) [address] [place], [address], 06/18/2023 19:30:18 06/18/2006/18/2023 APTT APTT 30.0 secon ds 23.4-3 1.4 PLEAS E NOTE NEW APTT REFER ENCE RANGE EFFEC TIVE 11/05 . Not Available [facility] (Lab) [address] [facility] [place], [address], 06/18/2023 19:31:28 06/18/2006/18/2023 PROTI ME W/INR protime 10.9 secon ds 9.5-11 .5 Not Available [facility] (Lab) [address] [place], [address], 06/18/2023 19:31:34 06/18/20 23 06/18/2023 PROTI ME [...] HOSPH OLIPI D SYNDR OME. Not Available [facility] (Lab) [address] [place], [address], 06/18/2023 19:31:34 06/18/20 23 06/18/2023 TSH thyroid-stim ulating hormone 0.873 uIU/m L 0.465- 4.680 Not Available [facility] (Lab) [address] [place], [address], 06/18/2023 19:58:13 01/18/20 23 01/17/2023 XR, finge r(s), 2 or more view No observ ation record ed. [address] [place], [address], 01/18/2023 10:29:18 05/26/20 23 05/26/2023 XR, cervi erika spine No observ ation record ed. [email or web address] [facility] [address], [place], [address], 05/30/2023 09:32:47 11/14/20 23 11/13/2023 XR, foot, 3 or more view No observ ation record ed. [email or web address] Not Available 2023 09:16:26 04/21/20 24 04/19/2024 XR, shoul nya, 2 or more view No observ ation record ed. [email or web address] Not Available 02/2024 15:13:56 03/05/20 25 03/05/2025 imagi ng/di agnos tic resul t No observ ation record ed. Americo Johnson MD [address], [place], [address], 03/08/2025 13:59:51 Result Notes None recorded. Problems Name Problem SNOMED Code Status Onset Date Resolution Date Notes Provider Name and Address Organization Details Recorded Time Otalgia of left ear 4250200120 Completed 202105/27/2023 Rosalind modi RMNic meneses, [facility] 3 15:08:50 Pain of bilateral hands 51061028784 011653 Completed 202105/27/2023 Rosalind modi RMNic meneses, [facility] [employer] [facility] 3 15:08:48 Laborator y test result abnormal 503764824 Active 2021 Not Available [facility] 3 19:46:25 Lupus erythemat osus 809743717 Active 2021 Not Available [facility] 3 19:46:25 Headache 50101188 Completed 202105/15/2022 Not Available [facility] 3 19:46:25 Migraine 03429044 Active 2021 Not Available [facility] 3 19:46:25 Celiac disease 170046884 Active 2020 Not Available [facility] 3 19:46:25 Obesity 113729635 Active 2020 Not Available [facility] 3 19:46:25 Nausea 963398359 Completed 202105/15/2022 Not Available [facility] 3 19:46:25 Aphthous ulcer of mouth 838175391 Completed 202105/15/2022 Not Available [facility] 3 19:46:26 Acute urinary tract infection 336824555 Completed 202105/15/2022 Rosalind modi RMA null, [place] [facility] 3 15:08:38 Pain of right knee joint 69063794279 4100 Active 2022 Not Available [facility] 3 19:46:26 Pain of hip region 71518542 Completed 202105/15/2022 Not Available [facility] 3 19:46:26 Upper respirato ry infection 67910267 Active 2021 Not Available [facility] 3 19:46:26 Alopecia 92853011 Active 2021 Not Available [facility] 3 19:46:26 Smoker 78713232 Active 2020 Not Available [facility] 3 19:46:26 72735455 Completed 201812/17/2019 Not Available [facility] 3 19:46:26 Hyperglyc emia 00842068 Active 2020 Not Available [facility] 3 19:46:26 COVID-19 620616208 Completed 202105/27/2023 Rosalind modi RMA null, [place] [facility] [employer] [facility] 3 15:08:41 Injury of finger 98940109 Active 2022 Sarah Cabrera CMA null, [place] [facility] [place] [facility] 3 10:30:18 Pain in right hand 64268775187 9109 Completed 202205/27/2023 Rosalind modi RMA null, [place] [facility] [place] [facility] 3 15:08:45 Mass of hand 581266870 Active 2022 Arvind Guevara MD [address] [place] [address], [address] , [place] [facility] 3 09:51:43 Acute urinary tract infection 057759856 Completed 202205/27/2023 Rosalind modi RMA null, [place] [facility] 3 15:08:38 Neck pain 21611791 Active 2022 Rashaun Washington MD [address], [address], [place], [address] , [place] [facility] [place] [facility] 3 15:13:57 Hyperlipi demia 31256596 Active 2022 Rashaun Washington MD [address], [address], [place], [address] , [place] [facility] [place] [facility] 3 15:51:16 Multiple bruising 881491845 Active 2022 Rashaun Washington MD [address], [address], [place], [address] , [place] [facility] 3 15:51:39 Easy bruising 761139851 Active 2022 Rashaun Washington MD [address], [address], [place], [address] , [facility] 3 15:51:58 Weight loss 82136683 Active 2022 Rashaun Washington MD [address], [address], [place], [address] , [facility] 3 15:52:46 Hypocalce ashleigh 8651601 Active 2022 Rashaun Washington MD [address], [address], [place], [address] , [facility] 3 10:12:38 Cough 88462481 Active 2022 Rama Irene LPN null, [place] [facility] [place] [facility] 3 13:05:48 Pain of right shoulder joint 65443425471 881780 Active 2023 KELI Meyers, [place] [facility] [place] [facility] 4 12:07:44 Right rotator cuff strain Active 2023 RENALDO Washburn [address], [address], [place], [address] , [place] [facility] [place] [facility] [employer] 4 12:52:20 Contusion of right shoulder 30615705877 570502 Active 2023 RENALDO Washburn [address] [facility] [facility] [address], [place], [address] , [facility] [employer] [facility] [employer] 4 12:52:27 Notes:Some problems listed i n Documents: #[id number], #[id number] could not be added to this patient's chart. Please review these documents and add these problems to the patient's chart manually as needed. Problem Notes None recorded. 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 Procedure Notes None recorded. Medical Equipment None Reported. Allergies Allergen ID Allergen Name Allergen Category Reaction Reaction Severity Criticality Documentation Date Start Date Code Code System Note Provider Name and Address Organization Details Recorded Time 94180 oxybutyni n medicatio n anaphylax is Not available Not available 01/16/2023 44064 RxNorm Not Available [facility] 19:47:43 33904 morphine medicatio n anaphylax is Not available Not available 01/16/2023 7052 RxNorm Not Available [facility] 19:47:43 38161 Iodinated contrast media (substanc e) medicatio n rash Not available Not available 01/16/2023 06082 2004 SNOMED Not Available [facility] 3 19:47:43 34592 fluconazo le medicatio n swelling Not available Not available 01/16/2023 4450 RxNorm Not Available [facility] 3 19:47:43 02877 hydrocodo ne Not available rash severe Not available 01/16/2023 5489 RxNorm Not Available [facility] 3 19:47:43 Medications Name Sig Start [...] Not Available prednisone 10 mg tablet take 7y0iafe, 8l9zfrs, 2o2uusx active Not Available Not Available No t [...] 20 mg by injection route. 2023 active [facility]: [phone] Not Available Not Available [...] Updated DateTime 01/22/2023 166.37 cm 36.1 kg/m2 67500.32 g Mary Jane Castro [facility] 01/22/2023 09:26:14 Date Recorded Body height Body mass index (BMI) Body weight Provider Name and Address Organization Details Last Updated DateTime 04/27/2024 166.37 cm 31.5 kg/m2 66450.74 g KELI Meyers [facility] 04/27/2024 12:04:35 Date Recorded Body height Body mass index (BMI) Body weight Body temperature Heart rate Oxygen saturation Oxygen saturation in Arterial blood by Pulse oximetry Systolic And Diastolic Provider Name and Address Organization Details Last Updated DateTime 166.37 cm 35.2 kg/m2 63174.3 6 g 97.7 [degF] 110 /min 98 % 98 % 126/72 mm[Hg] Rosalind rendon Nic [facility] [employer] [facility] 3 15:05:11 Date Recorded Body height Body mass index (BMI) Body weight Body temperature Heart rate Oxygen saturation Oxygen saturation in Arterial blood by Pulse oximetry Systolic And Diastolic Provider Name and Address Organization Details Last Updated DateTime 3 166.37 cm 34.4 kg/m2 00501.4 g 98.1 [degF] 98 /min 98 % 98 % 112/74 mm[Hg] Sarah Cabrera [facility] [employer] [facility] 3 15:36:03 Date Recorded Body height Body mass index (BMI) Body weight Heart rate Oxygen saturation Oxygen saturation in Arterial blood by Pulse oximetry Systolic And Diastolic Provider Name and Address Organization Details Last Updated DateTime 3 166.37 cm 32.4 kg/m2 09330.2 9 g 101 /min 98 % 98 % 124/80 mm[Hg] Rosalind rendon Nic [facility] [employer] [facility] 3 09:55:33 Social History Question Answer Notes LastModified by [employer] Details LastModified Time Tobacco Smoking Status Current Every Day Smoker Not Available [facility] 01/16/2023 19:45:22 What Is Your Level Of Caffeine Consumption? Moderate [id number] Information not available 01/16/2023 In The 14 Days Before Symptom Onset, Have You Had Close Contact With A Laboratory-confirm ed COVID-19 While That Case Was Ill? No [id number] Information not available 01/16/2023 In The 14 Days Before Symptom Onset, Have You Had Close Contact With A Person Who Is Under Investigation For COVID-19 While That Person Was Ill? No [id number] Information not available 01/16/2023 At What Age Did You Start Smoking Tobacco? 16 [id number] Information not available 01/16/2023 How Much Tobacco Do You Smoke? 0.5 PPD [id number] Information not available 01/16/2023 Sex: Unknown Functional Status Question Answer Note LastModified by [employer] Details LastModified Time What is your level of alcohol consumption? 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 Never used electronic cigarettes [id number] Information not available 01/16/2023 What is your exercise level? Occasional [id number] Information not available 01/16/2023 Mental Status None recorded. Family History Relationship Description Onset Age of this Age Resolved Age Notes LastModified by Organization Details LastModified Time Mother Hypothyroidi sm [email or web address] Not available 2023 11:46:43 Mother Essential hypertension [email or web address] Not available 08/2024 11:46:43 Mother Depressive disorder [id number] Not available 01/16/2023 19:45:32 Maternal Grandmother Diabetes mellitus [id number] Not available 01/16/2023 19:45:32 Medical History Condition Response ANXIETY DISORDER HERPES Y Gynecological History Statement/Question Response Abnormal Pap Y Flow Heavy Date of LMP 08/01/2021 Duration of Flow (days) 6 Date of Last Pap Smear 03/08/2021 Current Control Method Tubal Ligat ion Age at Menarche 11 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 Obstetrics History GPAL:G 2 P 2 0 0 2 Type Value Full Term 2 Living 2 Total 2 Past Encounters Encounter ID Performer Location Encounter Start Date Encounter Closed Date Diagnosis/Indication Diagnosis SNOMED-CT Code Diagnosis ICD10 Code Diagnosis Note [id number] [facility]_M IGR[facility]_ DEFAULT_1 _1 , 03/08/2021 00:00:00 03/08/2021 12:43:05 [id number] [facility]_M [facility]_ DEFAULT_1 _1 , 03/13/2021 00:00:00 03/13/2021 12:12:10 [id number] [facility] _[facility]_M IGRATION_ DEFAULT_1 _1 , 04/03/2021 00:00:00 04/03/2021 12:28:34 [id number] S_Histor ic_Gateway _ATHENA_M IGRATION_ DEFAULT_1 _1 , 05/18/2021 00:00:00 05/18/2021 17:49:13 [id number] S_Histor ic_Gateway _ATHENA_M IGRATION_ DEFAULT_1 _1 , 06/01/2021 00:00:00 06/01/2021 12:40:10 [id number] Jack Acevedo MD AHS_[facility]G [facility] [address] [place] [address] 06/27/2021 00:00:00 06/27/2021 17:35:55 [id number] AHS_Histor ic_Gateway _ATHENA_M IGRATION_ DEFAULT_1 _1 , 08/24/2021 00:00:00 08/24/2021 17:08:35 [id number] MD IVANA IzquierdoS_GMG [facility] [address] [address] 10/23/2021 00:00:00 10/23/2021 16:57:17 [id number] MD IVANA [facility]quierdoS[facility] Internal [facility] [address] [address] 12/13/2021 00:00:00 12/13/2021 14:53:31 [id number] MD IVANA IzquierdoS[facility] Internal [facility] [address] [address] 01/09/2022 00:00:00 01/09/2022 14:30:58 [id number] MD IVANA IzquierdoS_[facility] Internal Med [address] [place] [address] 02/16/2022 00:00:00 02/16/2022 11:35:46 [id number] MD IVANA IzquierdoS[facility] Internal [facility] [address] [address] 05/15/2022 00:00:00 05/15/2022 15:38:05 [id number] MD IVANA IzquierdoS_[facility] Internal Med [address] [place] [address] 09/27/2022 00:00:00 09/27/2022 14:52:07 [id number] Rashaun Washington MD [facility] Internal Med [id number] [facility] [place] [address] 10/15/2022 00:00:00 10/15/2022 12:49:17 [id number] Rashaun Washington MD [facility] Internal Med [address] [place] [address] 12/27/2022 00:00:00 12/27/2022 10:41:25 [id number] Arvind Guevara MD S_GMG [address] [address] 01/22/2023 09:04:45 01/22/2023 10:42:09 Pain in right hand [id number] 75999 M79.641 Mass of hand 723616890 R 22.31 4th finger [id number] Rashaun Washington MD [facility] Internal Med [address] [place] [address] 05/27/2023 15:00:14 05/27/2023 15:23:07 Neck pain 92188962 M54.2 ice pack, stretching , ibuprofen [id number] Rashaun Washington MD [facility] Internal [address] [place] [address] 06/18/2023 15:30:53 06/18/2023 15:58:14 Hyperlipidemia 04174396 E78.5 Easy bruising 155525176 R58 Weight loss 38441763 R63 .4 watch [id number] Rashaun Washington MD [facility] Internal [address] [place] [address] 09/06/2023 09:48:33 09/06/2023 10:27:38 Hypocalcemia 4382554 E83.51 labs, not on calcium [id number] Yanick Singh MD S_[facility] [address] [place] [address] 04/27/2024 11:44:30 04/27/2024 12:44:23 Pain of right shoulder joint [id number] 3898060 M25.511 Right rota tor cuff strain [id number] 0303672 S46.011A Contusion of right shoulder [id number] [id number] S40.011A Health Concerns Section Related Observation LastModified by Organization Detai ls LastModified Time None Recorded Concern Status LastModified by Organization Details LastModified Time None Recorded Advance Directives Directive None Recorded Payers Encounter Date Sequence Insurance Name Policy Number Policy Agrawal Covered Member ID Agrawal Member ID Guarantor Name 01/22/2023 1 [facility] ON OR AFTER 05/18/21 (MEDICAID REPLACEMENT - HMO) Sabina Chandler [id number] Sabina Chandler 05/27/2023 1 [facility] ON OR AFTER 05/18/21 (MEDICAID REPLACEMENT - HMO) Sabina Chandler [id number] Sabina Chandler 06/18/2023 1 [facility] ON OR AFTER 05/18/21 (MEDICAID REPLACEMENT - HMO) Sabina Chandler [id number] Sabina Chandler 09/06/2023 1 [facility] ON OR AFTER 05/18/21 (MEDICAID REPLACEMENT - HMO) Sabina Chandler [id number] Sabina Chandler 04/27/2024 [employer] Sabina Chandler Notes Date Note Type Note Provider Name and Address Organization Details Recorded Time 01/22/2023 text/html Patient presents mass right 4th finger. Tender to palpation has pain to manipulation masses in the distal phalanx. She had x-rays done which demonstrate the lytic area. Arvind Guevara MD [address] [address], [place], [address], [facility] [employer] [facility] 01/22/2023 09:52:05 05/27/2023 text/html She is here toda for neck pain.She was stretching yesterday and [...] movementsno radiation Rashaun Washington MD [address], [place], [address], [employer] 05/27/2023 15:21:00 06/18/2023 text/html Pt is here [...] Washington MD [address], [place], [address], [employer] [facility] 06/18/2023 15:53:50 09/06/2023 text/html Went to [facility] a month ago and was told she had low calcium.She has been having Adi horses all over and would like her labs checked againshe went to ER for abd painHer labs were nl 2 months ago Rashaun Washington MD [address], [place], [address], [employer] [facility] 09/06/2023 10:13:35 04/27/2024 text/html patient is a [...] today with the patient. RENALDO Washburn [address] [facility], [facility] [address], [place], [address], [place] [facility] 04/27/2024 12:52:56 OBGyn Episode No OBEpisode recorded.
--- OUTSIDE RECORDS SUMMARY | 2025-04-13 09:34 | XMS_ITS | Referral Summary ---
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 Gender Identity Female 02/23/2022 10:20 PM CDT Sexual Orientation Straight 02/23/2022 10 :20 PM CDT Last Filed Vital Signs Vital Sign Reading Time Taken Comments Blood Pressure 122/85 11/30/2024 3:18 PM WOOD MODEL MAKER Pulse 92 11/30/2024 3:18 PM WOOD MODEL MAKER Temperature 37 C (98.6 F) 11/30/2024 3:18 PM WOOD MODEL MAKER Respiratory Rate 18 11/30/2024 3:18 PM WOOD MODEL MAKER Oxygen Saturation 98% 11/30/2024 3:18 PM WOOD MODEL MAKER Inhaled Oxygen Concentration - - Weight 93.2 kg (205 lb 6.4 oz) 11/30/2024 3:18 P M WOOD MODEL MAKER Height 165.1 cm (5' 5) 08/09/2023 10:38 AM CDT Body Mass Index 34.18 08/09/2023 10:38 AM CDT Plan of Treatment Not on file Procedures Procedure Name Priority Date/Time Associated Diagnosis Comments HEPATITIS PANEL, ACUTE Routine 02/14/2022 9:10 AM CDT Arthralgia, unspecified joint from Last 3 Months or Most Recently Relevant to Health Maintenance Results * Hepatitis panel, acute (02/14/2022 9:10 AM CDT) Hep A IgM Nonreactive Nonreactive [facility] Comment: Interpretive Data: If Hep A IgM Ab is reported as Equivocal, a new sample should be drawn in two weeks for testing. Current interpretive data was last revised on 20. Hep B core IgM Nonreactive Nonreactive [facility] Comment: Interpretive Data If HepB Core [...] Result - Final [facility] Department [place] [address] from Last 3 Months or Most Recently Relevant to Health Maintenance Insurance [facility] [place] [address] Care Teams Clinical Academic Allergist Relationship Specialty Start Date End Date Kostas Washington MD PCP - General Internal Medicine 02/14/22
--- OUTSIDE RECORDS SUMMARY | 2025-04-13 09:34 | XMS_ITS ---
Author Organization [facility] Address [address] [place] [address] Phone Care Team Providers Care Information Systems Security Developer Name Role Phone Kostas Washington MD Primary Care Provider [phone] [facility] Status:Enrolled (Active) Start date:10/22/2024 Enrollment date:10/22/2024 Related social drivers of health:Intimate Partner Violence, Social Connections, Alcohol Use, Tobacco Use, Financial Resource Strain,Depression, Stress, Physical Activity, Food Insecurity, Transportation Needs, Housing Stability, Utilities Continued Care and Services Coordination
--- OUTSIDE RECORDS SUMMARY | 2025-04-13 09:35 | XMS_ITS | Encounter Summary ---
Author Organization [facility] Address [address] 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 Gender Identity Not on file Sexual [...] Dept 12/31/23 Office Visit Linda Sanford APRN, [facility] Neurology [address] Showing recent visits within past 365 days and meeting all other requirements Future Appointments Date Type Provider Dept 06/11/24 Appointment Linda Sanford APRN, [facility] Neurology [address] Showing future appointments within next 90 days and meeting all other requirements documented in this encounter Plan of Treatment Not on file documented as of this encounter Visit Diagnoses Diagnosis Chronic migraine with aura without status migrainosus, not intractable documented in this encounter Care Teams Institutional Custodian Relationship Specialty Start Date End Date Kostas Washington MD PCP - General Internal Medicine 06/07/21 Eric Hooper MD Consulting Physician Gastroenterology 10/29/23 02/04/25 documented as of this encounter
--- OUTSIDE RECORDS SUMMARY | 2025-04-13 09:35 | XMS_ITS | Clinical Summary ---
Author Organization [facility] Address [address] [place] [address] Care Team Providers Care Title I Director Name Role Phone Kostas Washington MD Primary Care Provider [phone] Allergies Active Allergy Reactions Criticality Noted Date [...] on file Legal Sex Female 6:12 AM MANAGER NON PROFIT Gender Identity Female 02/23/2022 10:20 PM CDT Sexual Orientation Straight 02/23/2022 10 :20 PM CDT Obstetrics History Last Filed Vital Signs Vital Sign Reading Time Taken Comments Blood Pressure 122/85 11/30/2024 3:18 PM MANAGER NON PROFIT Pulse 92 11/30/2024 3:18 PM MANAGER NON PROFIT Temperature 37 C (98.6 F) 11/30/2024 3:18 PM MANAGER NON PROFIT Respiratory Rate 18 11/30/2024 3:18 PM MANAGER NON PROFIT Oxygen Saturation 98% 11/30/2024 3:18 PM MANAGER NON PROFIT Inhaled Oxygen Concentration - - Weight 93.2 kg (205 lb 6.4 oz) 11/30/2024 3:18 P M MANAGER NON PROFIT Height 165.1 cm (5' 5) 08/09/2023 10:38 [...] on 20. Hep C Ab Nonreactive Nonreactive [facility] Comment:Antibodies to HCV no t detected. Does NOT exclude the possibility of recent exposure to HCV. HepBsAg Nonreactive Nonreactive [facility] Blood 02/14/2022 9:10 AM CDT 02/14/2022 11:12 AM CDT Jeannine Cheema NP LAB MICROBIOLOGY - GENERAL ORDERABLES Edited Result - Final [facility] [place] [address] from Last 3 Months or Most Recently Relevant to Health Maintenance Insurance [facility] Care Teams Title I Director Relationship Specialty Start Date End Date Kostas Washington MD PCP - General Internal Medicine 02/14/22
--- OUTSIDE RECORDS SUMMARY | 2025-04-13 09:35 | XMS_ITS | Clinical Summary ---
Author Organization [facility] Address [address] [place] [address] Phone Care Team Providers Care Geophysical Laboratory Director Name Role Phone Kostas Washington MD Primary Care Provider [phone] Allergies Active Allergy Reactions Criticality Noted Date [...] file Legal Sex Female 7:21 PM COMPUTER ENGINEER Gender Identity Not on file Sexual Orientation Not on file Last Filed Vital Signs Vital Sign Reading Time Taken Comments Blood Pressure 103/56 11/19/2024 4:15 AM COMPUTER ENGINEER Pulse 59 11/19/2024 4:15 AM COMPUTER ENGINEER Temperature 36.9 C (98.5 F) 11/19/2024 1:28 AM COMPUTER ENGINEER Respiratory Rate 19 11/19/2024 1:28 AM COMPUTER ENGINEER Oxygen Saturation 100% 11/19/2024 4:15 AM COMPUTER ENGINEER Inhaled Oxygen Concentration - - Weight 91.2 kg (201 lb 1 oz) 11/19/2024 1:28 AM COMPUTER ENGINEER Height 165.1 cm (5' 5) 11/19/2024 1:28 AM COMPUTER ENGINEER Body Mass Index 33.46 11/19/2024 1:28 AM COMPUTER ENGINEER Plan of Treatment Health Maintenance Due Date [...] this topic Medical Devices Implanted Type Area Bottom Turning Lathe Turner Device Identifier Shelf Expiration Date Model / Serial / Lot Stent Ureteral 6fr 2.1fr 26cm 2 Pigtail Curve 2 Durometer Taper Tip Loprfl Graduated [employer]aris Ultra - [id number] Implanted:Qty: 1 on 06/09/2021 by Juan Mancilla MD at [facility] IMPLANT [employer] 03/30/2024 [id number] / [id number] / [id number] Description:STRING OFF Insurance MEDICAID [employer] Care Teams Geophysical Laboratory Director Relationship Specialty Start Date End Date Kostas Washington MD PCP - General Internal Medicine 06/07/21
== END 2025-04-13 09:30 | disposition home or self-care (01) ==
PROVIDERS: PCP Internal Medicine; Visit Provider Physician Assistant Surgical
DX: S62.664D Nondisplaced fracture of distal phalanx of right ring finger, subsequent encounter for fracture with routine healing (principal); X58.XXXD Exposure to other specified factors, subsequent encounter
CPT/HCPCS: 73140

== ENCOUNTER 2025-06-08 10:48 | Outpatient (CLI) | payer OTHER, SELFPAY ==
--- NOTE | ~2025-06-08 | XR_ITS ---
EXAM/ PROCEDURE: XR finger 4th RT min 2V - 06/08/2025 11:00 CDT HISTORY: 29 years old Female with S62.664A - Nondisplaced fracture of distal phalanx of rig... COMPARISON: 04/13/2025 TECHNIQUE: Three view(s) FINDINGS/ IMPRESSION: Healed fracture of the base of distal phalanx of fourth finger. Previously seen lucency is barely vis ualized. Normal stable alignment. Soft tissue appears unremarkable. Joint spaces are within normal limits. Reviewed, dictated and finalized at location A.
--- OUTSIDE RECORDS SUMMARY | 2025-06-08 10:53 | XMS_ITS | Referral Summary ---
Author Organization [facility] Address [address] [place] [address] Care Team Providers Care Gettering Filament Machine Operator Name Role Phone Kostas Washington MD Primary Care Provider [phone] Encounters Date Type Department Care Team Description 05/20/2025 1:45 PM CDT Therapy [facility] Occupational Therapy [address] [place] [id number] Patricia Yusuf, OT Nondisplaced fracture of distal phalanx of right ring finger, initial encounter for closed fracture (Primary Dx) 05/11/2025 1:45 PM CDT Therapy [facility] Occupational Therapy [address] [place] [address] Patricia Yusuf, OT Nondisplaced fracture of distal phalanx of right ring finger, initial encounter for closed fracture (Primary Dx) 04/30/2025 1:00 PM CDT Therapy [facility] Occupational Therapy [address] [place] [address] Patricia Yusuf, OT Nondisplaced fracture of distal phalanx of right ring finger, initial encounter for closed fracture (Primary Dx) 04/27/2025 Plan of Care Documentation [facility] Occupational Therapy [address] [place] [address] 04/27/2025 2:30 PM CDT Therapy [facility] Occupational Therapy [address] [place] [address] Patricia Yusuf, OT Nondisplaced fracture of distal phalanx of right ring finger, initial encounter for closed fracture from Last 3 Months Allergies Active Allergy Reactions Criticality Noted Date [...] on file 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 Gender Identity Female 02/23/2022 10:20 PM CDT Sexual Orientation Straight 02/23/2022 10 :20 PM CDT Last Filed Vital Signs Vital Sign Reading Time Taken Comments Blood Pressure 122/85 11/30/2024 3:18 PM SALES ASSOCIATE CASHIER Pulse 92 11/30/2024 3:18 PM SALES ASSOCIATE CASHIER Temperature 37 C (98.6 F) 11/30/2024 3:18 PM SALES ASSOCIATE CASHIER Respiratory Rate 18 11/30/2024 3:18 PM SALES ASSOCIATE CASHIER Oxygen Saturation 98% 11/30/2024 3:18 PM SALES ASSOCIATE CASHIER Inhaled Oxygen Concentration - - Weight 93.2 kg (205 lb 6.4 oz) 11/30/2024 3:18 P M SALES ASSOCIATE CASHIER Height 165.1 cm (5' 5) 08/09/2023 10:38 [...] CDT) Hep A IgM Nonreactive Nonreactive [facility] Comment: Interpretive Data: If Hep A IgM Ab is reported as Equivocal, a new sample should be drawn in two weeks for testing. Current interpretive data was last revised on 20. Hep B core IgM Nonreactive Nonreactive [facility] Comment: Interpretive Data If HepB Core IgM Ab is reported as Equivocal, a new sample should be drawn in two weeks for testing. Current interpretive data was last revised on 20. Hep C Ab Nonreactive Nonreactive [facility] Comment:Antibodies to HCV no t detected. Does NOT exclude the possibility of recent exposure to HCV. HepBsAg Nonreactive Nonreactive [facility] Blood 02/14/2022 9:10 AM CDT 02/14/2022 11:12 AM CDT us Jeannine Cheema NP LAB MICROBIOLOGY - GENERAL ORDERABLES Edited Result - Final [facility] Department [place] [address] from Last 3 Months or Most Recently Relevant to Health Maintenance Insurance [facility] Care Teams Gettering Filament Machine Operator Relationship Specialty Start Date End Date Kostas Washington MD PCP - General Internal Medicine 02/14/22
--- OUTSIDE RECORDS SUMMARY | 2025-06-08 10:53 | XMS_ITS | Continuity of Care Document ---
Author Organization [facility] Address [address] [place] [address] Phone Care Team Providers Care Waterside Worker Name Role Phone Alvaro Soriano DO Unavailable Unavailable Advance Directives Directive Yes / No Effective Date File Name No Information Encounters Encounter Description Practice Location Reason(s) For Visit Diagnoses Date Provider Providers Copied on Encounter [facility], [address], [place], [place], [id number], tel:[phone] [facility] [place] No Information Bo Abbott. [address] [place], [address], . tel: [phone] Family History Family Member Type Diagnosis Age At Onset No Information Payers Payer name Insurance type Covered libertarian ID Authoriza tion(s) Medicaid [facility] [id number] Social History Type Description Quantity Date Captured [...]
--- OUTSIDE RECORDS SUMMARY | 2025-06-08 10:53 | XMS_ITS | Clinical Summary ---
Author Organization [facility] Address [address] [place] [address] Phone Care Team Providers Care Consulting Project Director Name Role Phone Kostas Washington MD Primary Care Provider [phone] Allergies Active Allergy Reactions Criticality Noted Date [...] inhalation every 4 hours as needed. Active methylPREDNISol one (MEDROL DOSPACK) 4 MG Tablet Therapy PackIndications :Chronic migraine with aura without status migrainosus, not [...] Tablet 4 Active SUMAtriptan (IMITREX) 25 MG TabletIndicatio ns:Chronic migraine with aura without status migrainosus, not intractable Take 1 Tablet by mouth once as needed for Migraine or Headaches. Use as directed. May repeat dose in 2 hours if headache recurs. 9 Tablet 2 4 Active amitriptyline (ELAVIL) 10 MG TabletIndicatio ns:Chronic migraine with aura without status migrainosus, not intractable Take 1 Tablet by mouth nightly. 90 Tablet 4 Active HYDROcodone-blela taminophen (NORCO) 5-325 MG TabletIndicatio ns:Dental infection Take 1 Tablet by mouth every 6 hours as needed for Moderate or more severe pain. 12 Tablet 5 Active Clindamycin HCl (CLEOCIN) 300 MG Capsule Take 1 Capsule by mouth every 8 hours for 10 days. 30 Capsule 5 06/03/20 25 Active Problems Problem Noted Date Diagnosed Date Generalized abdominal pain 11/19/2023 NICO positive 11/19/2023 Encounters Date Type Department Care Team Description 05/24/2025 7:01 PM CDT - 05/24/2025 8:08 PM CDT Emergency [facility] Emergency [address] [place] [address] Christen Bonilla, PAC Dental infection Discharge Disposition: Discharged to home or Selfcare 05/24/2025 Travel from Last 3 Months Immunizations Immunization Administration Dates Next Due Hepatitis [...] Information Value Date Recorded Sex Assigned at Female 05/24/2025 7:08 PM CDT 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 Gender Identity Female 05/24/2025 7:08 PM CDT Sexual Orientation Not on file Last Filed Vital Signs Vital Sign Reading Time Taken Comments Blood Pressure 144/78 05/24/2025 6:59 PM CDT Pulse 64 05/24/2025 6:59 PM CDT Temperature 37 C (98.6 F) 05/24/2025 6:59 PM CDT Respiratory Rate 16 05/24/2025 6:59 PM CDT Oxygen Saturation 100% 05/24/2025 6:59 PM CDT Inhaled Oxygen Concentration - - Weight 99.8 kg (220 lb) 05/24/2025 6:59 PM CDT Height 165.1 cm (5' 5) 05/24/2025 6:59 PM CDT Body Mass Index 36.61 05/24/2025 6:59 PM CDT Plan of Treatment Health Maintenance Due Date Last Done Comments Hepatitis C Virus (HCV) Screening 1995 Human Papillomavirus (HPV) Immunization (2 - 2-dose series) 04/30/2008 10/30/2007 Hepatitis B Immunization (1 of 3 - 19+ 3-dose series) 2014 Pneumococcal Immunization Combined (1 of 2 - PCV) 2014 Pap Smear 2016 SARS-COV-2 Immunization ( - 2023- season) 2024 Influenza Immunization (#1) 2025 10/0 05/2016, 10/30/2007 Td Immunization Every 10 Yea rs [...] this topic Medical Devices Implanted Type Area Skin Piler Device Identifier Shelf Expiration Date Model / Serial / Lot Stent Ureteral 6fr 2.1fr 26cm 2 Pigtail Curve 2 Durometer Taper Tip Loprfl Graduated [employer]aris Ultra - [id number] Implanted:Qty: 1 on 06/09/2021 by Juan Mancilla MD at [facility] IMPLANT [employer] 03/30/2024 [id number] / [id number] / [id number] Description:STRING OFF Insurance MEDICAID [employer] Care Teams Consulting Project Director Relationship Specialty Start Date End Date Kostas Washington MD PCP - General Internal Medicine 06/07/21
--- OUTSIDE RECORDS SUMMARY | 2025-06-08 10:53 | XMS_ITS | Clinical Summary ---
Author Organization [facility] Address [address] [place] [address] Care Team Providers Care Biomathematician Name Role Phone Kostas Washington MD Primary Care Provider [phone] Allergies Active Allergy Reactions Criticality Noted Date [...] Active Active Problems No known active problems Encounters Date Type Department Care Team Description 05/20/2025 1:45 PM CDT Therapy [facility] [address] [place] [id number] Patricia Yusuf, OT Nondisplaced fracture of distal phalanx of right ring finger, initial encounter for closed fracture (Primary Dx) 05/11/2025 1:45 PM CDT Therapy [facility] [address] [place] [phone] Patricia Yusuf, OT Nondisplaced fracture of distal phalanx of right ring finger, initial encounter for closed fracture (Primary Dx) 04/30/2025 1:00 PM CDT Therapy [facility] [address] [place] [id number] Patricia Yusuf, OT Nondisplaced fracture of distal phalanx of right ring finger, initial encounter for closed fracture (Primary Dx) 04/27/2025 2:30 PM CDT Therapy [facility] [address] [place] [id number] Patricia Yusuf, OT Nondisplaced fracture of distal phalanx of right ring finger, initial encounter for closed fracture 04/27/2025 Plan of Care Documentation [facility] [address] [place] [id number] from Last 3 Months Surgical History Surgery Date Site/Laterality Comments ANKLE [...] on file Legal Sex Female 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 [employer] OPERATOR Gender Identity Female 02/23/2022 10:20 PM CDT Sexual Orientation Straight 02/23/2022 10 :20 PM CDT Obstetrics History Last Filed Vital Signs Vital Sign Reading Time Taken Comments Blood Pressure 122/85 11/30/2024 3:18 PM [employer]ING F[employer]NACE OPERATOR Pulse 92 11/30/2024 3:18 PM BRAZING F[employer]NACE OPERATOR Temperature 37 C (98.6 F) 11/30/2024 3:18 PM BRAZING FURNACE OPERATOR Respiratory Rate 18 11/30/2024 3:18 PM BRAZING FURNACE OPERATOR Oxygen Saturation 98% 11/30/2024 3:18 PM BRAZING FURNACE OPERATOR Inhaled Oxygen Concentration - - Weight 93.2 kg (205 lb 6.4 oz) 11/30/2024 3:18 P M BRAZING FURNACE OPERATOR Height 165.1 cm (5' 5) 08/09/2023 10:38 [...] of 2 - PCV) 2014 Influenza Vaccine (#1) 2025 6, 09/17/2011, 10/30/2007 DTaP/Tdap/Td Vaccine (4 - Td or Tdap) 12/18/2029 12/18/2019, 05/23/2016, 10/30/2007 Hepatitis C Screening Completed 02/14/2022 Procedures Procedure Name Priority Date/Time Associated Diagnosis Comments HEPATITIS PANEL, ACUTE Routine 02/14/2022 9:10 AM CDT Arthralgia, unspecified joint from Last 3 Months or Most Recently Relevant to Health Maintenance Results * Hepatitis panel, acute (02/14/2022 9:10 AM CDT) Hep A IgM Nonreactive Nonreactive [facility] Comment: Interpretive Data: If Hep A IgM Ab is reported as Equivocal, a new sample should be drawn in two weeks for testing. Current interpretive data was last revised on 20. Hep B core IgM Nonreactive Nonreactive [facility] Comment: Interpretive Data If HepB Core IgM Ab is reported as Equivocal, a new sample should be drawn in two weeks for testing. Current interpretive data was last revised on 20. Hep C Ab Nonreactive Nonreactive [facility] Comment:Antibodies to HCV no t detected. Does NOT exclude the possibility of recent exposure to HCV. HepBsAg Nonreactive Nonreactive [facility] Blood 02/14/2022 9:10 AM CDT 02/14/2022 11:12 AM CDT us Jeannine Cheema NP LAB MICROBIOLOGY - GENERAL ORDERABLES Edited Result - Final [facility] Department [place] [id number] from Last 3 Months or Most Recently Relevant to Health Maintenance Insurance [facility] Care Teams Biomathematician Relationship Specialty Start Date End Date Kostas Washington MD PCP - General Internal Medicine 02/14/22
--- OUTSIDE RECORDS SUMMARY | 2025-06-08 10:53 | XMS_ITS | Data Portability ---
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 Role Phone RASHAUN WASHINGTON Primary Care Provider RASHAUN WASHINGTON Referring Provider [phone] AMANDA HENDERSON Esl Professor Unavailable Assessment Encounter Date Assessment Date Assessment [...] CMP, serum or plasma [address] (Lab), [address] [place] [address], [address], 3 12:35:55 CBC w/ auto diff 2022 023 [facility] (Lab), [address] [place] [address], [address], 3 19:16:03 PT/PTT, plasma 2022 023 [facility] (Lab), [address] [place] [address], [address], 3 00:19:18 CMP, serum or plasma 2022 023 [facility] (Lab), [address] [place] [address], [address], 3 19:30:13 TSH, serum or plasma 2022 023 [facility] Not available 19:58:13 lipid panel, serum 2022 023 [facility] (Lab), [address] [place] [address], [address], 3 19:30:18 Referral physical therapist referral - Please contact patient to schedule 2023 024 [email or web address] [facility], [address] [facility], [address] , [place], [address], 13:25:35 Procedures injection/a spiration joint/bursa (PROC) 2023 024 [email or web address] In-Office Order, Internal Use Only DO Not Attach Compendium DO Not Attach Compendium, Do Not Delete/merge, [id number] 12:51:32 Surgeries None recorded. Imaging None recorded. Medication Orders Marcaine (PF) 0.5 % (5 mg/mL) injection solution [address] [id number], [address], [place], [place], [id number], 4 12:51:33 Kenalog 10 mg/mL suspension for injection [address] [facility]18720, [address], [place], [place], [id number], 4 12:51:32 prednisone 10 mg tablets in a dose pack 2023 024 TR[facility] #78947, [address], [place], [place], [id number], 4 12:51:42 ibuprofen 800 mg tablet 2022 023 [facility], [address] , [place], [place], [id number], 4 12:05:45 cyclobenzap rine 5 mg tablet 2022 023 [email or web address] [facility] #02143, [address] , [place], [place], [id number], 4 12:05:14 Patient TargetsNo targets recorded. Patient InstructionsNo instructions recorded. Reason for Referral Physical Therapist Referral for Pain of right shoulder joint Please contact patient to schedule Referring Physician: Elton Foster, Orthopedic Surgery, Encounter Date: 04/27/2024 Results Created Date Observation Date Name Description Value Unit Range Abnormal Flag Note LastModifiedBy Organization Detail LastModifiedTime 06/18/20 23 06/18/2023 CBC/C OMPLE TE BLD COUNT W/DIF F white blood cells 4.6 x10'3 /uL 4.2-10 .8 Not Available [facility] (Lab) [address] [place], [address], 06/18/2023 19:16:02 06/18/2006/18/2023 CBC/C OMPLE TE BLD COUNT W/DIF F red blood cells 4.28 x10'6 /uL 3.80-5 .20 Not Available [facility] (Lab) [address] [place], [address], 06/18/2023 19:16:02 06/18/2006/18/2023 CBC/C OMPLE TE BLD COUNT W/DIF F hemoglobin 13.0 g/dL 12.0-1 5.6 Not Available [facility] (Lab) [address] [place], [address], 06/18/2023 19:16:02 06/18/2006/18/2023 CBC/C OMPLE TE BLD COUNT W/DIF F hematocrit 39.6 % 35.7-4 5.7 Not Available [facility] (Lab) [address] [place], [address], 06/18/2023 19:16:02 06/18/2006/18/2023 CBC/C OMPLE TE BLD COUNT W/DIF F mean red cell volume 92.5 fL 82.0-9 9.0 Not Available [facility] (Lab) [address] [place], [address], 06/18/2023 19:16:02 06/18/2006/18/2023 CBC/C OMPLE TE BLD COUNT W/DIF F mean red cell hemoglobin 30.4 pg 27.0-3 3.0 Not Available [facility] (Lab) [address] [place], [address], 06/18/2023 19:16:02 06/18/2006/18/2023 CBC/C OMPLE TE BLD COUNT W/DIF F mean RBC HGB concentratio n 32.8 g/dL 31.0-3 6.0 Not Available [facility] (Lab) [address] [facility] [place], [address], 06/18/2023 19:16:02 06/18/2006/18/2023 CBC/C OMPLE TE BLD COUNT W/DIF F red cell distribution width 12.6 % 11.8-1 5.5 Not Available [facility] (Lab) [address] [place], [address], 06/18/2023 19:16:02 06/18/2006/18/2023 CBC/C OMPLE TE BLD COUNT W/DIF F platelets 190 x10'3 /uL 150-40 0 Not Available [facility] (Lab) [address] [place], [address], 06/18/2023 19:16:02 06/18/2006/18/2023 CBC/C OMPLE TE BLD COUNT W/DIF F mean platelet volume 12.6 fL 9.0-12 .4 high Not Available [facility] (Lab) [address] [place], [address], 06/18/2023 19:16:02 06/18/2006/18/2023 CBC/C OMPLE TE BLD COUNT W/DIF F neutrophils 64.1 % 39.0-7 2.0 Not Available [facility] (Lab) [address] [place], [address], 06/18/2023 19:16:02 06/18/20 23 06/18/2023 CBC/C OMPLE TE BLD COUNT W/DIF F lymphocytes 27.1 % 16.0-4 7.0 Not Available [facility] (Lab) [address] [place], [address], 06/18/2023 19:16:02 06/18/20 23 06/18/2023 CBC/C OMPLE TE BLD COUNT W/DIF F monocytes 7.6 % 5.0-12 .0 Not Available [facility] (Lab) [address] [place], [address], 06/18/2023 19:16:02 06/18/2006/18/2023 CBC/C OMPLE TE BLD COUNT W/DIF F eosinophils 0.6 % 1.0-7. 0 low Not Available [facility] (Lab) [address] [place], [address], 06/18/2023 19:16:02 06/18/2006/18/2023 CBC/C OMPLE TE BLD COUNT W/DIF F basophils 0.4 % 0.0-2. 0 Not Available [facility] (Lab) [address] [place], [address], 06/18/2023 19:16:02 06/18/2006/18/2023 CBC/C OMPLE TE BLD COUNT W/DIF F immature granulocytes 0.2 % 0.00-0 .50 Not Available [facility] (Lab) [address] [place], [address], 06/18/2023 19:16:02 06/18/2006/18/2023 CBC/C OMPLE TE BLD COUNT W/DIF F neutrophils, absolute count 2.96 x10'3 /uL 1.5-8. 0 Not Available [facility] (Lab) [address] [place], [address], 06/18/2023 19:16:02 06/18/20 23 06/18/2023 CBC/C OMPLE TE BLD COUNT W/DIF F lymphocytes, absolute count 1.25 x10'3 /uL 1.07-3 .43 Not Available [facility] (Lab) [address] [place], [address], 06/18/2023 19:16:02 06/18/2006/18/2023 CBC/C OMPLE TE BLD COUNT W/DIF F monocytes, absolute count 0.35 x10'3 /uL 0.29-0 .99 Not Available [facility] (Lab) [address] [place], [address], 06/18/2023 19:16:02 06/18/20 23 06/18/2023 CBC/C OMPLE TE BLD COUNT W/DIF F eosinophils, absolute count 0.03 x10'3 /uL 0.02-0 .53 Not Available [facility] (Lab) [address] [place], [address], 06/18/2023 19:16:02 06/18/2006/18/2023 CBC/C OMPLE TE BLD COUNT W/DIF F basophils, absolute count 0.02 x10'3 /uL 0.01-0 .08 Not Available [facility] (Lab) [address] [place], [address], 06/18/2023 19:16:02 06/18/20 23 06/18/2023 CBC/C OMPLE TE BLD COUNT W/DIF F immature granulocytes ,absolute 0.01 x10'3 /uL 0.00-0 .05 Not Available [facility] (Lab) [address] [place], [address], 06/18/2023 19:16:02 06/18/20 23 06/18/2023 CBC/C OMPLE TE BLD COUNT W/DIF F nucleated red blood cells 0.0 % -0 Not Available [facility] (Lab) [address] [place], [address], 06/18/2023 19:16:02 06/18/2006/18/2023 CBC/C OMPLE TE BLD COUNT W/DIF F NRBC# 0.00 x10'3 /uL Not Available [facility] (Lab) [address] [place], [address], 06/18/2023 19:16:02 06/18/20 23 06/18/2023 COMPR EHENS ALLEGRA METAB OLIC PANEL sodium 141 mmol/ L 137-14 5 Not Available [facility] (Lab) [address] [place], [address], 06/18/2023 19:30:13 06/18/20 23 06/18/2023 COMPR EHENS ALLEGRA METAB OLIC PANEL potassium 4.0 mmol/ L 3.5-5. 1 Not Available [facility] (Lab) [address] [place], [address], 06/18/2023 19:30:13 06/18/20 23 06/18/2023 COMPR EHENS ALLEGRA METAB OLIC PANEL chloride 108 mmol/ L 98-107 high Not Available [facility] (Lab) [address] [place], [address], 06/18/2023 19:30:13 06/18/20 23 06/18/2023 COMPR EHENS ALLEGRA METAB OLIC PANEL carbon dioxide 24 mmol/ L 22-30 Not Available [facility] (Lab) [address] [place], [address], 06/18/2023 19:30:13 06/18/20 23 06/18/2023 COMPR EHENS ALLEGRA METAB OLIC PANEL anion gap 13.0 mmol/ L 14-22 low Not Available [facility] (Lab) [address] [place], [address], 06/18/2023 19:30:13 06/18/20 23 06/18/2023 COMPR EHENS ALLEGRA METAB OLIC PANEL glucose 95 mg/dL 70-99 Not Available [facility] (Lab) [address] [place], [address], 06/18/2023 19:30:13 06/18/20 23 06/18/2023 COMPR EHENS ALLEGRA METAB OLIC PANEL BUN 8 mg/dL 8-19 Not Available [facility] (Lab) [address] [place], [address], 06/18/2023 19:30:13 06/18/2006/18/2023 COMPR EHENS ALLEGRA METAB OLIC PANEL creatinine 0.68 mg/dL 0.66-1 .25 Not Available [facility] (Lab) [address] [place], [address], 06/18/2023 19:30:13 06/18/20 23 06/18/2023 COMPR EHENS ALLEGRA METAB OLIC PANEL GFR >60 Refer ence Range : [place] GFR Healt hy Adult : >60 [...] is avail able on the [facility] websi te: [email or web address] :[email or web address] [email or web address] r_[email or web address] culat or Not Available [facility] (Lab) [address] [place], [address], 06/18/2023 19:30:13 06/18/2006/18/2023 COMPR EHENS ALLEGRA METAB OLIC PANEL alkaline phosphatase 58 U/L 38-126 Not Available [facility] (Lab) [address] [place], [address], 06/18/2023 19:30:13 06/18/2006/18/2023 COMPR EHENS ALLEGRA METAB OLIC PANEL alanine aminotransfe rase 15 U/L 0-35 Not Available [facility] (Lab) [address] [place], [address], 06/18/2023 19:30:13 06/18/20 23 06/18/2023 COMPR EHENS ALLEGRA METAB OLIC PANEL aspartate aminotransfe rase 18 U/L 15-37 Not Available [facility] (Lab) [address] [place], [address], 06/18/2023 19:30:13 06/18/2006/18/2023 COMPR EHENS ALLEGRA METAB OLIC PANEL bilirubin, total 0.30 mg/dL 0.20-1 .30 Not Available [facility] (Lab) [address] [place], [address], 06/18/2023 19:30:13 06/18/20 23 06/18/2023 COMPR EHENS ALLEGRA METAB OLIC PANEL calcium 9.4 mg/dL 8.4-10 .2 Not Available [facility] (Lab) [address] [place], [address], 06/18/2023 19:30:13 06/18/20 23 06/18/2023 COMPR EHENS ALLEGRA METAB OLIC PANEL total protein 7.5 g/dL 6.3-8. 2 Not Available [facility] (Lab) [address] [place], [address], 06/18/2023 19:30:13 06/18/20 23 06/18/2023 COMPR EHENS ALLEGRA METAB OLIC PANEL albumin 4.3 g/dL 3.4-5. 0 Not Available [facility] (Lab) [address] [place], [address], 06/18/2023 19:30:13 06/18/20 23 06/18/2023 COMPR EHENS ALLEGRA METAB OLIC PANEL globulin 3.2 g/dL 2.6-4. 2 Not Available [facility] (Lab) [address] [place], [address], 06/18/2023 19:30:13 06/18/20 23 06/18/2023 COMPR EHENS ALLEGRA METAB OLIC PANEL A/G ratio 1.3 ratio 1.0-2. 0 Not Available [facility] (Lab) [address] [place], [address], 06/18/2023 19:30:13 06/18/20 23 06/18/2023 LIPID PANEL cholesterol 109 mg/dL 140-19 9 low NIH JORDAN NSUS RECOM MENDA TION FOR NEAL STERO L: ADULT CHILD LOW RISK: <200 <170 BORDE RLINE : <200- 239 ----- HIGH RISK: >240 >200 Not Available [facility] (Lab) [address] [place], [address], 06/18/2023 19:30:18 06/18/20 23 06/18/2023 LIPID PANEL triglyceride s 46 mg/dL 0-150 NIH JORDAN NSUS REPOR T RECOM MENDA TION FOR TRIGL YCERI EDE: ADULT CHILD LOW RISK: <150 ----- BODER LINE: 150-1 99 ----- HIGH RISK: >200 ----- Not Available [facility] (Lab) [address] [place], [address], 06/18/2023 19:30:18 06/18/20 23 06/18/2023 LIPID PANEL HDL cholesterol 39 mg/dL 40- low Not Available [facility] (Lab) [address] [place], [address], 06/18/2023 19:30:18 06/18/20 23 06/18/2023 LIPID PANEL [...] BE REPOR TORY. Not Available [facility] (Lab) [address] [place], [address], 06/18/2023 19:30:18 06/18/2006/18/2023 APTT APTT 30.0 secon ds 23.4-3 1.4 PLEAS E NOTE NEW APTT REFER ENCE RANGE EFFEC TIVE 11/05 . Not Available [facility] (Lab) [address] [place], [address], 06/18/2023 19:31:28 06/18/2006/18/2023 PROTI ME W/INR protime 10.9 secon ds 9.5-11 .5 Not Available [facility] (Lab) [address] [place], [address], 06/18/2023 19:31:34 06/18/20 23 06/18/2023 PROTI ME [...] D SYNDR OME. Not Available [facility] (Lab) [address] [place], [address], 06/18/2023 19:31:34 06/18/2006/18/2023 TSH thyroid-stim ulating hormone 0.873 uIU/m L 0.465- 4.680 Not Available [facility] (Lab) [address] [place], [address], 06/18/2023 19:58:13 01/18/20 23 01/17/2023 XR, finge r(s), 2 or more view No observ ation record ed. [address] [facility] [place], [address], 01/18/2023 10:29:18 05/26/20 23 05/26/2023 XR, cervi erika spine No observ ation record ed. [email or web address] [address], [place], [address], 05/30/2023 09:32:47 11/14/20 23 11/13/2023 XR, foot, 3 or more view No observ ation record ed. [email or web address] Not Available 2023 09:16:26 04/21/20 24 04/19/2024 XR, shoul nya, 2 or more view No observ ation record ed. [email or web address] Not Available 02/2024 15:13:56 03/05/20 25 03/05/2025 imagi ng/di agnos tic resul t No observ ation record ed. [email or web address] Americo Johnson MD [address] [facility] [address], [place], [address], 03/08/2025 13:59:51 04/15/20 25 04/14/2025 XR, finge r(s), 2 or more view No observ ation record ed. [email or web address] Not Available 2024 12:48:38 Result Notes None recorded. Problems Name Problem SNOMED Code Status Onset Date Resolution Date Notes Provider Name and Address Organization Details Recorded Time 32814120 Completed 201812/17/2019 Not Available [facility] 3 19:46:26 Celiac disease 070529048 Active 2020 Not Available [facility] 3 19:46:25 Obesity 426061646 Active 2020 Not Available [facility] 3 19:46:25 Smoker 54604707 Active 2020 Not Available [facility] 3 19:46:26 Hyperglyc emia 48404872 Active 2020 Not Available [facility] 3 19:46:26 Alopecia 87173437 Active 2021 Not Available [facility] 3 19:46:26 Lupus erythemat osus 844908237 Active 2021 Not Available [facility] 3 19:46:25 Acute urinary tract infection 398633453 Completed 202105/15/2022 KELI Menezes, [place] [employer] [facility] 3 15:08:38 Aphthous ulcer of mouth 717239843 Completed 202105/15/2022 Not Available [facility] 3 19:46:26 Pain of hip region 58945254 Completed 202105/15/2022 Not Available [facility] 3 19:46:26 Headache 36343934 Completed 202105/15/2022 Not Available [facility] 3 19:46:25 Migraine 46201284 Active 2021 Not Available [facility] 3 19:46:25 Nausea 377548775 Completed 202105/15/2022 Not Available [facility] 3 19:46:25 Upper respirato ry infection 70208194 Active 2021 Not Available [facility] 3 19:46:26 COVID-19 804975348 Completed 202105/27/2023 Rosalind modi RMA null, [place] [facility] [employer] [facility] 3 15:08:41 Pain of bilateral hands 50865552799 613217 Completed 202105/27/2023 Rosalind modi RMA null, [place] - [employer] [facility] 3 15:08:48 Laborator y test result abnormal 808223878 Active 2021 Not Available [facility] 3 19:46:25 Otalgia of left ear 8489020485 Completed 202105/27/2023 Rosalind modi RMA null, [place] [facility] [employer] [facility] 3 15:08:50 Pain of right knee joint 08620447238 4100 Active 2022 Not Available [facility] 3 19:46:26 Injury of finger 87126557 Active 2022 Sarah Cabrera CMA null, [place] [facility] [employer] [facility] 3 10:30:18 Pain in right hand 51467509843 9109 Completed 202205/27/2023 Rosalind modi RMA null, [place] [facility] [employer] [facility] 3 15:08:45 Mass of hand 110367386 Active 2022 Arvind Guevara MD [address] [place] [address], [address], [address] , [place] [facility] [place] [facility] 3 09:51:43 Acute urinary tract infection 524988206 Completed 202205/27/2023 KELI Menezes, [place] [facility] [place] [facility] 3 15:08:38 Neck pain 49975237 Active 2022 Rashaun Washington MD [address], [address], [place], [address] , [place] [facility] 3 15:13:57 Hyperlipi demia 63305158 Active 2022 Rashaun Washington MD [address], [address], [place], [address] , [place] [facility] 3 15:51:16 Multiple bruising 355642246 Active 2022 Rashaun Washington MD [address], [address], [place], [address] , [place] [facility] 3 15:51:39 Easy bruising 241724954 Active 2022 Rashaun Washington MD [address], [place], [address] , [facility] [place] [facility] 3 15:51:58 Weight loss 87418734 Active 2022 Rashanu Washington MD [address], [address], [place], [address] , [facility] [place] [facility] 3 15:52:46 Hypocalce ashleigh 2506396 Active 2022 Rashaun Washington MD [address], [address], [place], [address] , [place] [facility] 3 10:12:38 Cough 82353326 Active 2022 Rama Irene LPN null, [place] [facility] [place] [facility] 3 13:05:48 Pain of right shoulder joint 87317973460 774191 Active 2023 KELI Meyers null, [place] [facility] [place] [facility] 4 12:07:44 Right rotator cuff strain Active 2023 RENALDO Washburn [address] [facility] [facility] [address], [place], [address] , [facility] 4 12:52:20 Contusion of right shoulder 34553350307 653924 Active 2023 RENALDO Washburn [address], [place], [address] , [facility] 4 12:52:27 Notes:Some problems listed i n Documents: #[id number], #[id number] could not be added to this patient's chart. Please review these documents and add these problems to the patient's chart manually as needed. Problem Notes None recorded. Procedures Surgical History Date Name Laterality Status Provider Name and Address Organization Details Recorded Time 03/21/20 [employer] Surgery completed Not Available [facility] 01/17/20 19:45:31 03/13/20 21 endometrial biopsy completed Not Available [facility] 01/16/2023 19:45:31 03/08/20 21 Date of Last Pap Smear completed Not Available [facility] 01/16/2023 19:45:30 04/12/20 20 laparoscopic salpingectomy completed Not Available [facility] 01/16/2023 19:45:31 03/18/20 20 [employer] Surgery completed Not Available [facility] 01/17/20 19:45:31 Eye Surgery completed Not Available [facility] 01/16/2023 19:45:31 Ankle arthroscopy/surge ry completed Not Available [facility] 01/16/2023 19:45:31 Imaging Results None recorded. Procedure Notes None recorded. Medical Equipment None Reported. Allergies Allergen ID Allergen Name Allergen Category Reaction Reaction Severity Criticality Documentation Date Start Date Code Code System Note Provider Name and Address Organization Details Recorded Time 62381 oxybutyni n medicatio n anaphylax is Not available Not available 01/16/2023 67492 RxNorm Not Available [facility] 19:47:43 05680 morphine medicatio n anaphylax is Not available Not available 01/16/2023 7052 RxNorm Not Available [facility] 19:47:43 27038 Iodinated contrast media (substanc e) medicatio n rash Not available Not available 01/16/2023 33151 2004 SNOMED Not Available [facility] 3 19:47:43 38299 fluconazo le medicatio n swelling Not available Not available 01/16/2023 4450 RxNorm Not Available [facility] 3 19:47:43 58869 hydrocodo ne Not available rash severe Not available 01/16/2023 5489 RxNorm Not Available [facility] 3 19:47:43 Medications Name Sig Start [...] Not Available prednisone 10 mg tablet take 5f5aggh, 4y8hruy, 2n5nlin active Not Available Not Available No t [...] 20 mg by injection route. 2023 active [facility][NOTE 3]: 0003- [id number] 20 Not Available Not Available [...] Updated DateTime 01/22/2023 166.37 cm 36.1 kg/m2 12400.32 g Mary Jane Castro [employer] 01/22/2023 09:26:14 Date Recorded Body height Body mass index (BMI) Body weight Provider Name and Address Organization Details Last Updated DateTime 04/27/2024 166.37 cm 31.5 kg/m2 73060.74 g KELI Meyers [employer] 04/27/2024 12:04:35 Date Recorded Body height Body mass index (BMI) Body weight Body temperature Heart rate Oxygen saturation Oxygen saturation in Arterial blood by Pulse oximetry Systolic And Diastolic Provider Name and Address Organization Details Last Updated DateTime 3 166.37 cm 35.2 kg/m2 56085.3 6 g 97.7 [degF] 110 /min 98 % 98 % 126/72 mm[Hg] Rosalind Sveta justice [facility] [employer] [facility] 3 15:05:11 Date Recorded Body height Body mass index (BMI) Body weight Body temperature Heart rate Oxygen saturation Oxygen saturation in Arterial blood by Pulse oximetry Systolic And Diastolic Provider Name and Address Organization Details Last Updated DateTime 3 166.37 cm 34.4 kg/m2 70106.4 g 98.1 [degF] 98 /min 98 % 98 % 112/74 mm[Hg] Sarah Cabrera [facility] [employer] [facility] 3 15:36:03 Date Recorded Body height Body mass index (BMI) Body weight Heart rate Oxygen saturation Oxygen saturation in Arterial blood by Pulse oximetry Systolic And Diastolic Provider Name and Address Organization Details Last Updated DateTime 3 166.37 cm 32.4 kg/m2 33383.2 9 g 101 /min 98 % 98 % 124/80 mm[Hg] Rosalind Cruzgarrett justice [facility] [employer] [facility] 3 09:55:33 Social History Question Answer Notes LastModified by Organizat ion Details LastModified Time Tobacco Smoking Status Current Every Day Smoker Not Available [facility] 01/16/2023 19:45:22 What Is Your Level Of Caffeine Consumption? Moderate [id number] Information not available 01/16/2023 In The 14 Days Before Symptom Onset, Have You Had Close Contact With A Laboratory-confirm ed COVID-19 While That Case Was Ill? No [id number] Information not available 01/16/2023 In The 14 Days Before Symptom Onset, Have You Had Close Contact With A Person Who Is Under Investigation For COVID-19 While That Person Was Ill? No [id number] Information not available 01/16/2023 At What Age Did You Start Smoking Tobacco? 16 [id number] Information not available 01/16/2023 How Much Tobacco Do You Smoke? 0.5 PPD [id number] Information not available 01/16/2023 Sex: Unknown Functional Status Question Answer Note LastModified by Organizat ion Details LastModified Time What is your level of alcohol consumption? 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 Never used electronic cigarettes [id number] Information not available 01/16/2023 What is your exercise level? Occasional [id number] Information not available 01/16/2023 Mental Status None recorded. Family History Relationship Description Onset Age of this Age Resolved Age Notes LastModified by Organization Details LastModified Time Mother Hypothyroidi sm [email or web address] Not available 2023 11:46:43 Mother Essential hypertension [email or web address] Not available 08/2024 11:46:43 Mother Depressive disorder [id number] Not available 01/16/2023 19:45:32 Maternal Grandmother Diabetes mellitus [id number] Not available 01/16/2023 19:45:32 Medical History Condition Response ANXIETY DISORDER HERPES Y Gynecological History Statement/Question Response Abnormal Pap Y Flow Heavy Date of LMP 08/01/2021 Duration of Flow (days) 6 Date of Last Pap Smear 03/08/2021 Current Control Method Tubal Ligat ion Age at Menarche 11 Breast 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 Obstetrics History GPAL:G 2 P 2 0 0 2 Type Value Full Term 2 Living 2 Total 2 Past Encounters Encounter ID Performer Location Encounter Start Date Encounter Closed Date Diagnosis/Indication Diagnosis SNOMED-CT Code Diagnosis ICD10 Code Diagnosis Note [id number] [facility]_M IGRATION_ DEFAULT_1 _1 , 03/08/2021 00:00:00 03/08/2021 12:43:05 [id number] [facility] _ATHENA_M IGRATION_ DEFAULT_1 _1 , 03/13/2021 00:00:00 03/13/2021 12:12:10 [id number] [facility] _ATHENA_M IGRATION_ DEFAULT_1 _1 , 04/03/2021 00:00:00 04/03/2021 12:28:34 [id number] [facility] _[facility]HENA_M IGRATION_ DEFAULT_1 _1 , 05/18/2021 00:00:00 05/18/2021 17:49:13 [id number] [facility] _ATHENA_M IGRATION_ DEFAULT_1 _1 , 06/01/2021 00:00:00 06/01/2021 12:40:10 [id number] Jack Acevedo MD [facility] [address] [facility] [place] [address] 06/27/2021 00:00:00 06/27/2021 17:35:55 [id number] [facility] _ATHENA_M IGRATION_ DEFAULT_1 _1 , 08/24/2021 00:00:00 08/24/2021 17:08:35 [id number] MD IVANA [facility] [address] [address] 10/23/2021 00:00:00 10/23/2021 16:57:17 [id number] MD RONAL Izquierdo[facility] [address] [address] 12/13/2021 00:00:00 12/13/2021 14:53:31 [id number] MD IVANA [facility] [address] [address] 01/09/2022 00:00:00 01/09/2022 14:30:58 [id number] MD [facility]ANA [facility] [address] [address] 02/16/2022 00:00:00 02/16/2022 11:35:46 [id number] MD IVANA [facility] [address] [address] 05/15/2022 00:00:00 05/15/2022 15:38:05 [id number] MD IVANA [facility] [place] [address] [facility] [place] [address] 09/27/2022 00:00:00 09/27/2022 14:52:07 [id number] Rashaun Washington MD [facility] [place] [address] [facility] [place] [address] 10/15/2022 00:00:00 10/15/2022 12:49:17 [id number] Rashaun Washington MD [facility] [address] [place] [address] 12/27/2022 00:00:00 12/27/2022 10:41:25 [id number] Arvind Guevara MD [facility] [address] [address] 01/22/2023 09:04:45 01/22/2023 10:42:09 Pain in right hand [id number] 33673 M79.641 Mass of hand 101788734 R 22.31 4th finger [id number] Rashaun Washington MD [facility] [address] [place] [address] 05/27/2023 15:00:14 05/27/2023 15:23:07 Neck pain 18608192 M54.2 ice pack, stretching , ibuprofen [id number] Rashaun Washington MD [facility] [address] [place] [address] 06/18/2023 15:30:53 06/18/2023 15:58:14 Hyperlipidemia 29559448 E78.5 Easy bruising 698235753 R58 Weight loss 63181505 R63 .4 watch [id number] Rashaun Washington MD [facility] [address] [place] [address] 09/06/2023 09:48:33 09/06/2023 10:27:38 Hypocalcemia 6969172 E83.51 labs, not on calcium [id number] Yanick Singh MD [facility] [address] [place] [address] 04/27/2024 11:44:30 04/27/2024 12:44:23 Pain of right shoulder joint [id number] 8435473 M25.511 Right rota tor cuff strain [id number] 8777921 S46.011A Contusion of right shoulder 4854469482 1220584 S40.011A Health Concerns Section Related Observation LastModified by Organization Detai ls LastModified Time None Recorded Concern Status LastModified by Organization Details LastModified Time None Recorded Advance Directives Directive None Recorded Payers Insurance Date Sequence Insurance Name Policy Number Policy Agrawal Covered Member ID Agrawal Member ID Guarantor Name 10/08/2024 [employer] Sabnia Chandler 08/19/2024 1 [facility] ON OR AFTER 05/18/21 (MEDICAID REPLACEMENT - HMO) Sabina Chandler [id number] Sabina Chandler Notes Date Note Type Note Provider Name and Address Organization Details Recorded Time 01/22/2023 text/html Patient presents mass right 4th finger. Tender to palpation has pain to manipulation masses in the distal phalanx. She had x-rays done which demonstrate the lytic area. Arvind Guevara MD [address], [place], [address], [employer] 01/22/2023 09:52:05 05/27/2023 text/html She is here [...] Washington MD [address], [place], [address], [employer] 05/27/2023 15:21:00 06/18/2023 text/html Pt is here [...] Washington MD [address], [place], [address], [employer] 06/18/2023 15:53:50 09/06/2023 text/html Went to [facility] a month ago and was told she had low calcium.She has been having Adi horses all over and would like her labs checked againshe went to ER for abd painHer labs were nl 2 months ago Rashaun Washington MD [address], [place], [address], [employer] 09/06/2023 10:13:35 04/27/2024 text/html patient is a [...] today with the patient. RENALDO Washburn [address] [facility], [facility] [address], [place], [address], [place] - [facility] [employer] 04/27/2024 12:52:56 OBGyn Episode No OBEpisode recorded.
--- OUTSIDE RECORDS SUMMARY | 2025-06-08 10:53 | XMS_ITS | Encounter Summary ---
Author Organization [facility] Address [address] 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 Neurology [address] Showing recent visits within past 365 days and meeting all other requirements Future Appointments Date Type Provider Dept 06/11/24 Appointment Linda Sanford APRN, [employer] [facility] Neurology [place] [place] Showing future appointments within next 90 days and meeting all other requirements documented in this encounter Plan of Treatment Not on file documented as of this encounter Visit Diagnoses Diagnosis Chronic migraine with aura without status migrainosus, not intractable documented in this encounter Care Teams Senior Patrol Agent Relationship Specialty Start Date End Date Kostas Washington MD PCP - General Internal Medicine 06/07/21 Eric Hooper MD Consulting Physician Gastroenterology 10/29/23 02/04/25 documented as of this encounter
--- OUTSIDE RECORDS SUMMARY | 2025-06-08 10:53 | XMS_ITS | Encounter Summary ---
Author Organization [facility] Address [address] [place] [address] Phone Care Team Providers Care Manager Acute Name Role Phone Kostas Washington MD Primary Care Provider [phone] Kostas Washington MD Primary Care Provider [phone] Eric Hooper MD Unavailable [phone] Reason for Referral * Radiology Services (Routine) - Closed Specialty Diagnoses / Procedures Referred By Contac t Referred To Contact Radiology Diagnoses Pre-op testing Procedures EKG 12 LEAD Juan Mancilla MD Referral ID Status Reason Start Date Expiration Date Visits Re quested Visits Authorized [id number] Closed 06/06/2021 1 1 Encounter Details Date Type Department Care Team (Latest Contact Info) Description 06/06/2021 Transcribe Orders [facility] Preop/Pacu II [address] [place] [id number] Juan Mancilla MD Pre-op testing (Primary Dx) [...] PM CDT 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 Gender Identity Female 05/24/2025 7:08 PM CDT Sexual Orientation Not on file COVID-19 Exposure [...] QTC CALCULATION 445 ms EXTERNAL EKG P [place] 55 degrees EXTERNAL EKG R [place] 90 degrees EXTERNAL EKG T [place] 22 degrees EXTERNAL EKG 06/07/2021 9:18 AM CDT Impressions EXTERNAL EKG - 06/08/2021 9:13 AM CDT Sinus tachycardia Rightward axis Comparison Summary: No serial comparison made Summary: Borderline ECG Confirmed by Osei Norris [id number] on 06/08/2021 9:13:35 AM Narrative Procedure Note Leslie Franz MD - 06/08/2021 IMPRESSION: Sinus tachycardia Rightward axis Comparison Summary: No serial comparison made Summary: Borderline ECG Confirmed by Osei Norris [id number] on 06/08/2021 9:13:35 AM us Juan Mancilla MD IMG ECG ORDERABLES Final Result EXTERNAL EKG * SARS-COV-2 BY MOLECULAR (06/07/2021 9:06 AM CDT) SARSCOV2 NOT DETECTED (Referenc e Range for this test is Not Detected) [facility] ID NOW 06/07/2021 9:29 AM CDT [facility] Comment:This test was perfor med by a MOLECULAR, NON-PCR method Other NASOPHARYNGEAL STRUCTURE / Unknown Non-Phlebotomy Collection / Unknown 06/07/2021 9:06 AM CDT 06/07/2021 9:11 AM CDT Narrative [facility] - 06/07/2021 9:29 AM CDT [...] information for Clinicians can be found at: https://www.fda.gov/media/387405/download Additional information for Patients can be found at: https://www.fda.gov/media/273380/download Juan Mancilla MD MICROBIOLOGY - GENERAL ORDERABLE S Final Result [facility] [address] [place] [address] documented in this encounter Visit Diagnoses Diagnosis Pre-op testing- Primary Preoperative examination, unspecified Pre-op testing Preoperative examination, unspecified documented in this encounter Care Teams Manager Acute Relationship Specialty Start Date End Date Kostas Washington MD PCP - General Internal Medicine 11/10/18 06/06/21 Kostas Washington MD PCP - General Internal Medicine 06/07/21 Eric Hooper MD Consulting Physician Gastroenterology 10/29/23 02/04/25 documented as of this encounter
--- OUTSIDE RECORDS SUMMARY | 2025-06-08 10:53 | XMS_ITS | Clinical Summary ---
Author Organization [facility] Address [address] [place] [address] Care Team Providers Care Safety Leader Name Role Phone [facility] ([facility]) Primary Care Provi nya Source Comments [facility],non-[facility] Affiliates and Associated Physician Practices is amultiple site organization consisting of ambulatory clinics and hospital sitesin [place], [place], [place] and [place]. This disclosure is being madepursuant to the Care Everywhere program and may not contain all information available regarding this patient. 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 Gender Identity Not on file Sexual Orientation [...] of 3 - 19+ 3-dose series) 2014 PAP SMEAR 2016 HPV VACCINE (1 - 3-dose SCDM series) 2022 COVID-19 VACCINE ( - 2023-2 5 season) 2024 DEPRESSION SCREENING 11/18/2024 INFLUENZA VACCINE (#1) 2025 08/24/2016 DTAP/TDAP/TD VACCINES (2 - T d or [...] patient's age to complete this topic Insurance [facility] MEDICAID - [place] [facility] SELF PAY NO INSURANCE Member Subscriber Plan / Payer (Ef fective for All Dates) Name:Natanael Chandler Member ID:Not on file Relation to Subscriber:Not on file Name:NATANAEL CHANDLER Subscriber ID:Not on file (Home) Address: [address] [place] [id number] Payer ID:Not on file Group ID:Not on file Type:Self Pay Address: [place], [place] [facility] Advance Directives * Full Code (Latest Code Status on File) Date Activated Date Inactivated Comments 08/22/2016 6:42 PM 08/26/2016 1:13 PM Care Teams Safety Leader Relationship Specialty Start Date End Date [facility] ([facility]) [address] [place] [address] PCP - General 01/26/19
== END 2025-06-08 10:49 | disposition home or self-care (01) ==
PROVIDERS: PCP Internal Medicine; Visit Provider Physician Assistant Surgical
DX: S62.664D Nondisplaced fracture of distal phalanx of right ring finger, subsequent encounter for fracture with routine healing (principal); X58.XXXD Exposure to other specified factors, subsequent encounter
CPT/HCPCS: 73140